=== PATIENT | female | born 1950 | race Caucasian/White ===

== ENCOUNTER 2020-03-08 13:16 | Outpatient (REF) | payer MEDICARE, SELFPAY ==
[2020-03-08 15:49] LABS: TSH reflex Free T4 8.94 mIU/mL (0.32-4.0)
[2020-03-09 07:46] LABS: Triiodothyronine T3 Free 2.6 pg/mL (2.3-4.2)
== END 2020-03-08 13:17 | disposition home or self-care (01) ==
LOC: HO.LAB 13:16
PROVIDERS: PCP Internal Medicine; Visit Provider Obstetrics & Gynecology
DX: Z01.419 Encounter for gynecological examination (general) (routine) without abnormal findings (principal); E03.9 Hypothyroidism, unspecified
CPT/HCPCS: 84439; 84443; 84481

== ENCOUNTER 2020-08-21 12:54 | Outpatient (REF) | payer MEDICARE, SELFPAY ==
--- NOTE | ~2020-08-21 | MM_ITS ---
EXAMINATION: MM SCREENING DIGITAL BREAST TOMOSYNTHESIS, BILATERAL CLINICAL INFORMATION: Screening. Asymptomatic. The lifetime risk of breast cancer based on the Tyrer-Cuzick Model is 5.6%. COMPARISON: Mammography: March 29, 2019 and studies dating back to March 03, 2013 TECHNIQUE: Digital breast tomosynthesis is performed in both the craniocaudal and mediolateral oblique views along with computer-aided detection (CAD). Synthesized 2D images are generated from the tomosynthesis. FINDINGS: The breasts are heterogeneously dense, which may obscure small masses (ACR BI-RADS breast composition Category c). There are no significant masses, abnormal calcifications, or other abnormalities. MM/MM tomosynthesis screening BI IMPRESSION: There are no significant changes from prior study. ASSESSMENT: BI-RADS 1: Negative RECOMMENDATION: Routine annual mammography screening. This patient's information was entered into a reminder system with a target due date for their next mammogram.
--- NOTE | ~2020-08-21 | MM_ITS ---
EXAMINATION: BONE DENSITOMETRY CLINICAL INDICATION: Asymptomatic menopausal status. COMPARISON: Baseline BD dated 08/30/2008. TECHNIQUE: Using a [employer] DXA System (software version: 13.1) manufactured by [employer], dual-energy x-ray absorptiometry was performed of the lumbar spine and left hip. The images are of good technical quality. Summary results are attached. FINDINGS: AP SPINE L1-L2 (excluding L3 and L4): The data of L1-L4 has been changed to exclude the L3 and L4 vertebral bodies, because degenerative changes at these levels may cause overestimation of lumbar spine density. Current: BMD 1.081 g/cm2, Z-score 0.9, T-score -0.7, normal, 0.9% decrease from baseline (<5% change is not significant). Baseline: BMD 1.091 g/cm2. LEFT FEMUR, NECK: Current: BMD 0.825 g/cm2, Z-score 0.1, T-score -1.5, osteopenia. Baseline: BMD 0.900 g/cm2. LEFT FEMUR, TOTAL: Current: BMD 0.784 g/cm2, Z-score -0.4, T-score -1.8, osteopenia, 3.0% decrease from baseline (<5% change is not significant). Baseline: BMD 0.808 g/cm2. IDENTIFIED RISK FACTORS: Early menopause, secondary osteoporosis hysterectomy, bilateral oophorectomy. HISTORY OF FRACTURE: None listed. MEDICATIONS: ERT/SERMS. MM/XR DEXA axial skeleton IMPRESSION: 1. DIAGNOSIS: Osteopenia based on the lowest T-score value of -1.8 in the total femur applying World Health Organization criteria. 2. 10-YEAR FRACTURE RISK PREDICTION, FRAX: Major osteoporotic fracture (clinical spine, forearm, hip or shoulder) 9.4%. Hip fracture 1.3%. 3. Treatment Recommendations: NOF guidelines recommend consideration for treatment in postmenopausal women and men age 50 and older presenting with the following: -A hip or vertebral (clinical or morphometric) fracture. -T-score less than or equal to -2.5 at the femoral neck or spine after appropriate evaluation to exclude secondary causes. -Low bone mass at the hip or spine and a 10-year fracture probability by FRAX of greater than or equal to 3% for hip fracture or greater than or equal to 20% for major osteoporotic fracture based on the [place] adapted WHO algorithm. 4. Other Recommendations: All treatment decisions require clinical judgment and consideration of individual patient factors, including patient preferences, comorbidities, previous drug use, risk factors not captured in the FRAX model (e.g. frailty, falls, vitamin D deficiency, increased bone turnover, interval significant decline in bone density) and possible under or overestimation of fracture risk by FRAX. Additional medical evaluation for secondary cause of low bone mineral density may be appropriate. FUTURE SCAN RECOMMENDATION: People with diagnosed cases of osteoporosis or at high risk for fracture should have regular bone mineral density tests. For patients eligible for Medicare, routine testing is allowed once every 2 years. The testing frequency can be increased to one year for patients who have rapidly progressing disease, those who are receiving or discontinuing medical therapy to restore bone mass, or have additional risk factors.
== END 2020-08-21 12:55 | disposition home or self-care (01) ==
LOC: HO.MAMMO 12:54
PROVIDERS: PCP Internal Medicine; Visit Provider Internal Medicine
DX: Z12.31 Encounter for screening mammogram for malignant neoplasm of breast (principal); M81.0 Age-related osteoporosis without current pathological fracture; Z90.722 Acquired absence of ovaries, bilateral; Z78.0 Asymptomatic menopausal state; Z91.89 Other specified personal risk factors, not elsewhere classified
CPT/HCPCS: 77063; 77067; 77080

== ENCOUNTER 2021-07-15 08:43 | Outpatient (REF) | payer MEDICARE, SELFPAY ==
[2021-07-15 10:54] LABS: Cholesterol 260 mg/dL; HDL Cholesterol 51 mg/dL; LDL Cholesterol Calculated 177 mg/dl; Triglycerides 161 mg/dL
== END 2021-07-15 08:44 | disposition home or self-care (01) ==
LOC: HO.10HDL 08:43
PROVIDERS: Visit Provider Internal Medicine
DX: E78.00 Pure hypercholesterolemia, unspecified (principal)
CPT/HCPCS: 36415; 80061

== ENCOUNTER → 2021-07-19 07:58 | Outpatient (REF) | payer MEDICARE, SELFPAY ==
--- NOTE | 2021-07-19 08:02 | CA_ITS ---
Acquisition Time: 2021-07-19 08:15:29 Total Exercise Time: 00:06:01 Test Indications: Chest Pain Medications: UNKNOWN Protocol: JERONIMO Max HR: 155 BPM 102% of Pred: 151 BPM Max BP: 208/082 mmHG Max Work Load: 7.0 METS PT EXERCISED ON STD JERONIMO PROTOCOL FOR 6 MIN THRU STAGE 2. MAX [id number]%MAX. NO CP. SLIGHT SENSATION OF SOB. OCC ISOLATED PVC'S. NO ISCHEMIC CHANGES. CLINICALLY AND ELEC NORMAL Referred By: Yan Jose Overread By: KYMBERLY JOSE MD
== END ==
LOC: HO.CARD 07:58
PROVIDERS: Visit Provider Internal Medicine
DX: R07.9 Chest pain, unspecified (principal)
CPT/HCPCS: 93017

== ENCOUNTER 2022-07-28 10:05 | Outpatient (REF) | payer MEDICARE, SELFPAY ==
[2022-07-28 14:05] LABS: MANUAL DIFF FLAG NO
[2022-07-28 14:28] LABS: Basophils Percent Auto 0.6 % (0-2); Eosinophils Absolute Auto 0.1 X10*3/uL (0.0-0.4); Eosinophils Percent Auto 2.1 % (0-4); Hematocrit 44.7 % (37.0-47.0); Hemoglobin 14.6 g/dl (12.0-16.0); Imm Gran Abs Auto 0.02 X10*3/uL (0.00-0.03); Imm Gran Pct Auto 0.3 % (0.0-0.4); Lymphocytes Absolute Auto 1.5 X10*3/uL (1.2-4.9); Lymphocytes Percent Auto 23.8 % (20-40); Mean Corpuscular HGB Conc 32.7 g/dl (31.0-35.0); Mean Corpuscular Hemoglobin 29.7 pg (27.0-33.0); Mean Corpuscular Volume 90.9 fL (80.0-98.0); Mean Platelet Volume 9.8 fL (9.4-12.3); Monocytes Absolute Auto 0.5 X10*3/uL (0.1-1.2); Monocytes Percent Auto 7.1 % (2-11); Neutrophils Absolute Auto 4.2 x10*3/uL (2.0-8.3); Neutrophils Percent Auto 66.1 % (45-73); Platelet Count 316 X10*3/uL (160-400); Red Blood Count 4.92 X10*6/uL (4.20-5.50); Red Cell Distribution Width 12.5 % (11.0-16.0); White Blood Count 6.3 X10*3/uL (4.8-10.8)
[2022-07-28 14:33] LABS: Alanine Aminotransferase 21 U/L (0-31); Albumin Level 3.9 g/dL (3.5-5.0); Alkaline Phosphatase 58 U/L (39-117); Anion Gap 10 (12-20); Aspartate Amino Transferase 21 U/L (5-31); Bilirubin Total 0.6 mg/dL (0.0-1.0); Blood Urea Nitrogen 16 mg/dL (9-16); Calcium 8.9 mg/dL (8.4-10.2); Carbon Dioxide 27 mmol/L (22-29); Chloride 108 mmol/L (96-108); Cholesterol 231 mg/dL; Estimated Glomerular Filt Rate > 60; Glucose Random 84 mg/dL (60-115); HDL Cholesterol 44 mg/dL; LDL Cholesterol Calculated 162 mg/dl; Potassium 4.3 mmol/L (3.3-5.1); Sodium 141 mmol/L (135-145); Triglycerides 128 mg/dL
[2022-07-28 15:03] LABS: Free T4 (Free Thyroxine) 1.33 ng/dL (0.71-1.85); Thyroid Stimulating Hormone 0.02 uIU/mL (0.32-4.0); Vitamin B12 678 pg/mL (200-900)
[2022-07-29 14:09] LABS: Triiodothyronine T3 Free 3.8 pg/mL (2.3-4.2)
== END 2022-07-28 10:06 | disposition home or self-care (01) ==
LOC: HO.10HDL 10:05
PROVIDERS: Visit Provider Internal Medicine
DX: E03.9 Hypothyroidism, unspecified (principal); R53.83 Other fatigue; E78.00 Pure hypercholesterolemia, unspecified
CPT/HCPCS: 36415; 80053; 80061; 82607; 84439; 84443; 84481; 85025

== ENCOUNTER 2022-10-21 11:39 | Outpatient (REF) | payer MEDICARE, SELFPAY ==
[2022-10-21 14:19] LABS: TSH reflex Free T4 0.16 uIU/mL (0.32-4.0)
[2022-10-21 15:26] LABS: Free T4 (Free Thyroxine) 1.21 ng/dL (0.71-1.85)
== END 2022-10-21 11:40 | disposition home or self-care (01) ==
LOC: HO.10HDL 11:39
PROVIDERS: Visit Provider Internal Medicine Endocrinology, Diabetes & Metabolism
DX: E89.0 Postprocedural hypothyroidism (principal)
CPT/HCPCS: 36415; 84439; 84443

== ENCOUNTER 2023-01-23 11:26 | Outpatient (REF) | payer MEDICARE, SELFPAY ==
[2023-01-23 14:30] LABS: Free T4 (Free Thyroxine) 1.13 ng/dL (0.71-1.85); TSH reflex Free T4 0.52 uIU/mL (0.32-4.0); Thyroid Stimulating Hormone 0.52 uIU/mL (0.32-4.0)
== END 2023-01-23 11:27 | disposition home or self-care (01) ==
LOC: HO.10HDL 11:26
PROVIDERS: Absent Provider Internal Medicine Endocrinology, Diabetes & Metabolism; Visit Provider Internal Medicine
DX: E03.9 Hypothyroidism, unspecified (principal)
CPT/HCPCS: 36415; 84439; 84443

== ENCOUNTER 2023-11-24 08:20 | Outpatient (REF) | payer MEDICARE, SELFPAY ==
[2023-11-24 12:17] LABS: Cholesterol 244 mg/dL (<200); HDL Cholesterol 49 mg/dL (>40); LDL Cholesterol Calculated 167 mg/dL (<100); Triglycerides 144 mg/dL (<150)
== END 2023-11-24 08:21 | disposition home or self-care (01) ==
LOC: HO.WFDLDS 08:20
PROVIDERS: Visit Provider Internal Medicine
DX: E78.00 Pure hypercholesterolemia, unspecified (principal)
CPT/HCPCS: 36415; 80061

== ENCOUNTER 2024-05-12 12:55 | Outpatient (AMB) | payer MEDICARE, SELFPAY ==
[2024-05-12 13:06] VITALS: BP 118/68; PULSE 59; O2SAT 98; BMI 23.3
--- NOTE | 2024-05-12 13:06 | MHC.OFFVIS ---
Vital Signs 05/12/24 13:06 Height 5 ft 5.5 in Weight 142 lb 4 oz BMI 23.3 BP 118/68 Blood Pressure Location Lt brachial Position Sitting Pulse 59 Pulse Source Pulse Oximeter Pulse Oximetry (%) 98 Oxygen Delivery Method Room Air Intake Visit Reasons: Arthritis Intake Note: Patient presents for follow up on osteoarthritis. Allergies seasonal Allergy (Unknown, Uncoded 05/12/24 13:08) itching, wtery eyes. HPI HPI Arthritis: Details: She has point tenderness of right shoulder. She has had the shoulder pain for years. She has tolerated the pain but now is using tylenol and ibuprofen 400mg daily or BID for pain control. Pain with movement. Sometimes is lying on shoulder at night causing pain. She has difficulty with washing hair. [facility] Medical History (Updated 05/12/24 @ 15:39 by Frank Russo MD) Cataract Arthritis Graves disease Surgical History (Updated 03/08/20 @ 14:04 by Mahi Crawley MD) History of bilateral oophorectomy H/O eye surgery Hx of tonsillectomy H/O hysterectomy for benign disease Family History (Updated 03/08/20 @ 13:35 by Maritza Salinas MA) Sister Uterine cancer Review of Systems Const All systems reviewed & are unremarkable except as noted in HPI and below Physical Exam Vital Signs: Last Vital Signs Pulse 59 05/12/24 13:06 BP 118/68 05/12/24 13:06 Pulse Ox 98 05/12/24 13:06 Oxygen Delivery Method Room Air 05/12/24 13:06 BMI result Body Mass Index 23.3 Const Other: General: Comfortable Skin: No lesions seen MSK: Localized tenderness superior to right acromion. No subacromial tenderness. No tenderness of joint line of glenohumeral joint. Shoulder abduction 160 degrees with pain. She is able to externally rotate and internally rotate shoulder but with pain. Left shoulder range of motion is normal. Right arm tremors at times. Assessment & Plan Assessment & Plan (1) Right shoulder pain: Comment: She has localized pain above the acromion limiting full range of motion. I am obtaining x-ray for further evaluation. We discussed conservative management. Code(s): M25.511 - Pain in right shoulder Category: Medical Plan: X-ray right shoulder ordered Apply diclofenac gel to affected area 3 times a day Apply ice or heat to affected area twice a day She will continue to take Tylenol and ibuprofen 400 mg b.i.d. Return to clinic in 2 weeks to review x-ray results Orders: Orders XR shoulder RT min 2V Today M25.511 - Pain in right shoulder Medications: New diclofenac sodium 1% apply to affected area every 4-6 hours as needed 4 grams topical QID 100 grams 3RF Coding Level of Care Code Est Pt Level 3 (89815) Complex EM visit Add On G2211 Diagnoses Right shoulder pain M25.511
== END 2024-05-12 13:58 | disposition home or self-care (01) ==
PROVIDERS: PCP Internal Medicine; Visit Provider Internal Medicine Rheumatology
DX: M25.511 Pain in right shoulder (principal)
CPT/HCPCS: 99213; G2211

== ENCOUNTER → 2024-05-12 12:55 | Outpatient (BNVA) | payer MEDICARE, SELFPAY | PROVIDERS: PCP Internal Medicine; Visit Provider Internal Medicine Rheumatology | DX: M25.511 Pain in right shoulder (principal) | CPT/HCPCS: 99212 ==

== ENCOUNTER 2024-05-13 12:01 | Outpatient (REF) | payer MEDICARE, SELFPAY ==
--- NOTE | ~2024-05-13 | XR_ITS ---
EXAMINATION: XR SHOULDER, RIGHT CLINICAL INFORMATION: M25.511 - Pain in right shoulder COMPARISON: None available. TECHNIQUE: AP external rotation, Grashey, scapular Y, and axillary views of the right shoulder. FINDINGS: There is mild loss of right AC joint space. The glenohumeral joint space is maintained normal. No visible acute fracture, dislocation or subluxation seen. The soft tissues are normal. XR/XR shoulder RT min 2V IMPRESSION: Mild degenerative changes right AC joint. No visible acute fracture, dislocation or subluxation seen. Electronically signed by: Yovany Ely MD 05/13/2024 03:20 PM ASHLEY
== END 2024-05-13 12:02 | disposition home or self-care (01) ==
LOC: HO.XRAY 12:01
PROVIDERS: PCP Internal Medicine; Visit Provider Internal Medicine Rheumatology
DX: M25.511 Pain in right shoulder (principal)
CPT/HCPCS: 73030

== ENCOUNTER → 2024-05-13 12:06 | Outpatient (BNV) | payer MEDICARE, SELFPAY | PROVIDERS: PCP Internal Medicine; Visit Provider Radiology Diagnostic Radiology | DX: M25.511 Pain in right shoulder (principal) | CPT/HCPCS: 73030 ==

== ENCOUNTER 2024-05-19 14:52 | Outpatient (REF) | payer MEDICARE, SELFPAY ==
--- NOTE | ~2024-05-19 | XR_ITS ---
EXAMINATION: XR HAND 3 OR MORE VIEWS LEFT HISTORY: left third finger inflammation COMPARISON: There are no prior studies available for comparison. FINDINGS: Three views of the left hand are submitted. Osseous mineralization is normal. There is no fracture or dislocation. There is mild narrowing of the DIP joints. There is soft tissue swelling over the PIP joint of the middle finger. XR/XR hand LT min 3V IMPRESSION: Soft tissue swelling over the PIP joint of the middle finger. Mild narrowing of the DIP joints. Electronically signed by: Solo Reza MD 05/19/2024 03:26 PM ASHLEY
[2024-05-19 15:30] LABS: MANUAL DIFF FLAG NO
[2024-05-19 15:48] LABS: Basophils Absolute Auto 0.1 X10*3/uL (0.0-0.2); Basophils Percent Auto 0.8 % (0-2); Eosinophils Absolute Auto 0.3 X10*3/uL (0.0-0.4); Eosinophils Percent Auto 3.8 % (0-4); Hematocrit 44.7 % (37.0-47.0); Hemoglobin 14.4 g/dl (12.0-16.0); Imm Gran Abs Auto 0.02 X10*3/uL (0.00-0.03); Imm Gran Pct Auto 0.3 % (0.0-0.4); Lymphocytes Percent Auto 27.2 % (20-40); Mean Corpuscular HGB Conc 32.2 g/dl (31.0-35.0); Mean Corpuscular Hemoglobin 30.4 pg (27.0-33.0); Mean Corpuscular Volume 94.5 fL (80.0-98.0); Mean Platelet Volume 9.3 fL (9.4-12.3); Monocytes Absolute Auto 0.5 X10*3/uL (0.1-1.2); Monocytes Percent Auto 6.6 % (2-11); Neutrophils Absolute Auto 4.5 x10*3/uL (2.0-8.3); Neutrophils Percent Auto 61.3 % (45-73); Platelet Count 342 X10*3/uL (160-400); Red Blood Count 4.73 X10*6/uL (4.20-5.50); Red Cell Distribution Width 12.6 % (11.0-16.0); White Blood Count 7.3 X10*3/uL (4.8-10.8)
[2024-05-19 16:14] LABS: Anion Gap 11 (12-20); Blood Urea Nitrogen 20 mg/dL (9-16); C Reactive Protein < 0.04 mg/dL (< or = 0.50); Calcium 9.7 mg/dL (8.4-10.2); Carbon Dioxide 27 mmol/L (22-29); Chloride 108 mmol/L (96-108); Estimated Glomerular Filt Rate > 60; Glucose Random 102 mg/dL (60-115); Potassium 4.2 mmol/L (3.3-5.1); Sodium 142 mmol/L (135-145); Uric Acid 4.1 mg/dL (2.4-5.7)
[2024-05-19 16:56] LABS: Erythrocyte Sedimentation Rate 7 MM/HR (0-20)
== END 2024-05-19 14:53 | disposition home or self-care (01) ==
LOC: HO.XRAY 14:52
PROVIDERS: PCP Internal Medicine; Visit Provider Internal Medicine
DX: M79.89 Other specified soft tissue disorders (principal)
CPT/HCPCS: 36415; 73130; 80048; 84550; 85025; 85652; 86140

== ENCOUNTER → 2024-05-19 15:05 | Outpatient (BNV) | payer MEDICARE, SELFPAY | PROVIDERS: PCP Internal Medicine; Visit Provider Radiology Diagnostic Radiology | DX: R22.32 Localized swelling, mass and lump, left upper limb (principal) | CPT/HCPCS: 73130 ==

== ENCOUNTER 2024-06-10 12:43 | Outpatient (AMB) | payer MEDICARE, SELFPAY ==
[2024-06-10 12:56] VITALS: BP 114/68; PULSE 78; O2SAT 98; BMI 23.3
--- NOTE | 2024-06-10 12:56 | A.OFFVIS_ITS ---
Vital Signs 06/10/24 12:56 Height 5 ft 5.5 in Weight 142 lb BMI 23.3 BP 114/68 Blood Pressure Location Lt brachial Position Sitting Pulse 78 Pulse Source Pulse Oximeter Pulse Oximetry (%) 98 Oxygen Delivery Method Room Air Intake Visit Reasons: 2-3 weeks Intake Note: Patient presents follow up Allergies Seasonal Allergies Allergy (Unknown, Verified 06/10/24 13:07) Unknown HPI HPI 2-3 weeks: Details: She continues to have pain in her right shoulder, which she localizes to the lateral side. She is having difficulty with ADLs such as dressing herself. She has not self medicating. She continues to have swelling of her left 3rd finger. Swelling and stiffness is worse in the morning. Redness has improved. She saw PCP who did workup and an x-ray. She has not followed up with results for PCP. [facility] Medical History Cataract Arthritis Graves disease Surgical History History of bilateral oophorectomy H/O eye surgery Hx of tonsillectomy H/O hysterectomy for benign disease Family History Sister Uterine cancer Review of Systems Const All systems reviewed & are unremarkable except as noted in HPI and below Physical Exam Vital Signs: Last Vital Signs Pulse 78 06/10/24 12:56 BP 114/68 06/10/24 12:56 Pulse Ox 98 06/10/24 12:56 Oxygen Delivery Method Room Air 06/10/24 12:56 BMI result Body Mass Index 23.3 Const Other: General: Comfortable Skin: No lesions seen MSK: Localized tenderness to the right subacromial region. She has pain with range of motion of right shoulder: External rotation, internal rotation, abduction and adduction. Positive painful arc sign. Tender to palpate left 3rd PIP with synovitis present. She has slight erythema around joint with pain of subcutaneous tissue of distal 2nd phalanx of 3rd finger. Assessment & Plan Assessment & Plan (1) Subacromial impingement of right shoulder: Code(s): M75.41 - Impingement syndrome of right shoulder Category: Medical Plan: PT ordered Start NSAID meloxicam 15 mg daily Ice shoulder daily Return to clinic in 3 months (2) Osteoarthritis of hands, bilateral: Comment: Left 3rd PIP swelling likely related to OA flare. X-ray personally reviewed with patient, which reveals osteoarthritis of left hand. Labs revealed normal inflammatory markers and white cell count. Code(s): M19.041 - Primary osteoarthritis, right hand; M19.042 - Primary osteoarthritis, left hand Category: Medical Qualifiers: Osteoarthritis type: primary Qualified Code(s): M19.041 - Primary osteoarthritis, right hand; M19.042 - Primary osteoarthritis, left hand Plan: Start NSAID meloxicam RTC 3 months or sooner for intra-articular cortisone injection Orders: Orders PT Evaluation and Treatment 06/10/24 M75.41 - Impingement syndrome of right shoulder Medications: New meloxicam Take with food 15 mg PO DAILY 30 tabs 2RF Coding Level of Care Code Est Pt Level 4 (65373) Complex EM visit Add On G2211 Diagnoses Subacromial impingement of right shoulder M75.41 Primary osteoarthritis of both hands M19.041; M19.042 Osteoarthritis type: primary
--- OUTSIDE RECORDS SUMMARY | 2024-06-10 13:06 | XMS_ITS ---
Author Organization [facility] Address [address] [place] [address] Care Team Providers Care Gun Stock Checker Name Role Phone Yan Muro MD Primary Care Provider Solo Noguera Unavailable [phone] ALLERGIES No Known Allergies REASON FOR VISIT Patient presents today for a recall colonoscopy MEDICATIONS Medication SIG (Take, Route, Frequency, Duration) Notes Start Date End Date Status Biotin Active Metoprolol Succinate ER 25 MG 12.5 in am 12.5 in pm tablet Orally Once a day Active Levothyroxine Sodium 125 MCG 1 tablet Orally Once a day Active Marlen Allergy 180 MG 1 tablet Orally O nce a day Active Estradiol 0.0375 MG/24HR APPLY 1 PATCH T OPICALLY TWICE A WEEK. Transdermal for 84 Not-Taking VITAL SIGNS BMI 24.00 kg/m2 04/26/2024 Blood pressure systolic 000 mm Hg 04/26/20 24 Blood pressure diastolic 00 mm Hg 024 Height 64.5 in 04/26/2024 Temperature 97.5 degrees Fahrenheit 04/26/20 24 Weight 142 lbs 04/26/2024 Encounters Encounter Location Date Provider Diagnosis [facility] [address] [place] [address] 04/26/2024 Solo Adams Irritable bowel syndrome K58.9 ; Hx of adenomatous colonic polyps Z86.010 and Encounter for screening for malignant neoplasm of colon Z12.11 ASSESSMENTS Encounter Date Diagnosis Assessment Notes Treatment Notes Treatment Clinical Notes 04/26/2024 Irritable bowel syndrome (ICD-10 - K58.9) 04/26/2024 Hx of adenomatous colonic polyps (ICD-10 - Z86.010) 04/26/2024 Encounter for screening for malignant neoplasm of colon (ICD-10 - Z12.11) PLAN OF TREATMENT Future Test Test Name Order Date COLONOSCOPY 04/26/2024 Next Appt Details Follow Up: prn, Reason: Provider Name:Solo Adams , 08/03/2024 09:30:00 AM, [address] [place] [address], [id number],
--- OUTSIDE RECORDS SUMMARY | 2024-06-10 13:06 | XMS_ITS | Patient Health Record ---
Author Organization [facility] Address [address] [place] [address] Care Team Providers Care Senior Net Developer Name Role Phone Yan Muro MD Primary Care Provider Solo Noguera Unavailable [phone] ALLERGIES No Known Allergies REASON FOR REFERRAL No Information MEDICATIONS Medication SIG (Take, Route, Frequency, Duration) [...] TWICE A WEEK. Transdermal for 84 Not-Taking IMMUNIZATIONS Vaccine Route Administration Date Status Comme nts Influenza Unknown 12/27/2019 Administered Influenza Unknown 01/25/2022 Administered Influenza Unknown 03/29/2024 Administered SOCIAL HISTORY Sex Assigned At : Social History Observation Description Sex Assigned At Unknown PROBLEMS Problem Type ICD Code Onset Dates Problem Status W/U Status Risk SNOMED Code Notes Problem Irritable bowel syndrome (K58.9) Active confirmed Irritable b owel syndrome (75655655) Problem Encounter for screening for malignant neoplasm of colon (Z12.11) Active confirmed 006277291 Problem Bloating (R14.0) Active confirmed Flatu lence, eructation and gas pain (850720357) Problem Constipation (K59.00) Active confirmed Constipation (06669513) Problem Kearney's esophagus without dysplasia (K22.70) Active confirmed 198981269 Problem Polyp of colon (K63.5) Active confirmed 07676005 Problem Hiatal hernia (K44.9) Active confirmed 25568797 Problem Hx of adenomatous colonic polyps (Z86.010) Active confirmed 039985502 Problem Gastroesophageal reflux disease, unspecified whether esophagitis present (K21.9) Active confirmed 048494578 VITAL SIGNS Temperature 97.5 degrees Fahrenheit 04/26/2024 Blood pressure diastolic 00 mm Hg 04/26/2024 Height 64.5 in 04/26/2024 Blood pressure systolic 000 mm Hg 04/26/2024 Weight 142 lbs 04/26/2024 BMI 24.00 kg/m2 04/26/2024 Encounters Encounter Location Date Provider Diagnosis [facility] [address] [place] [address] 04/26/2024 Solo Adams Irritable bowel syndrome K58.9 [...] TREATMENT Future Test Test Name Order Date UPPER GI ENDOSCOPY 10/17/2014 COLONOSCOPY 10/17/2014 COLONOSCOPY 04/26/2024 Next Appt Details Provider Name:Solo Adams , 08/03/2024 09:30:00 AM, [address] [place] [address] , [place], [place], [phone], Insurance Providers Payer Name Payer Address Payer Phone Subscriber Number Group Number Insured Name Patient Relationship to Insured Coverage Start Date Coverage End Date [place] [address] [place] [address] [id number] CHUY MILLER Self - patient is the insured [employer] ATT[employer] CLAIMS [address] [place] [address] [id number] CHUY MILLER Self - patient is the insured MEDICAL (GENERAL) HISTORY Medical History History ICD Code Tubular adenomas-original co lonoscopy in 1994 with the removal of several tubular adenomas, including a 2 cm polyp with high-grade dysplasia. All of her subsequent colonoscopies have been negative for any adenomas, including the most recent one in July 2008 Irritable bowel syndrome GERD--her last upper endosco py was in 2005, which revealed a small hiatal hernia--biopsies were negative for Kearney's mucosa at that time--biopsies in 2001 revealed a small area of Kearney's mucosa Graves' disease SVT-on metoprolol Denies [place],DM,CVA,Lung disease,renal dise ase Normal duodenal biopsies in 2001 and neg TTG antibodies in 2008 Hypoglycemic Colonoscopy in 2014-1 small tubular jose tia EGD in 2014-normal duodenal biopsies Negative colonoscopy in 05/[address] Ruvalcaba during the hemorrhoid surgery Surgical History Surgery Date(Month/Year) Cataract surgery-- both eyes 2018 Hemorrhoidectomy 05/2018 Eye surgery for the Graves' disease for tissue decompression DIAZ for endometriosis
== END 2024-06-10 13:36 | disposition home or self-care (01) ==
PROVIDERS: PCP Internal Medicine; Visit Provider Internal Medicine Rheumatology
DX: M75.41 Impingement syndrome of right shoulder (principal); M19.041 Primary osteoarthritis, right hand; M19.042 Primary osteoarthritis, left hand
CPT/HCPCS: 99214; G2211

== ENCOUNTER → 2024-06-10 12:43 | Outpatient (BNVA) | payer MEDICARE, SELFPAY | PROVIDERS: PCP Internal Medicine; Visit Provider Internal Medicine Rheumatology | DX: M75.41 Impingement syndrome of right shoulder (principal); M19.041 Primary osteoarthritis, right hand; M19.042 Primary osteoarthritis, left hand | CPT/HCPCS: 99212 ==

== ENCOUNTER 2024-09-01 10:50 | Outpatient (AMB) | payer MEDICARE, SELFPAY ==
[2024-09-01 10:56] VITALS: BP 118/70; PULSE 65; TEMP 36.5; O2SAT 98; BMI 24.1
--- NOTE | 2024-09-01 10:56 | MHC.PC.OV ---
Vital Signs 09/01/24 10:56 Height 5 ft 5 in Weight 145 lb BMI 24.1 BP 118/70 Blood Pressure Location Lt brachial Position Sitting Pulse 65 Pulse Source Pulse Oximeter Temp 97.7 F Temp Source Axillary Pulse Oximetry (%) 98 Oxygen Delivery Method Room Air Intake Visit Reasons: Routine - see comments Element Winding Machine Tender Required: No Accompanied by: Self / Same As Patient Allergies Seasonal Allergies Allergy (Unknown, Verified 09/01/24 10:57) Unknown Tobacco use date assessed: 09/01/24 Fall risk assessment: No Falls in past year Last assessed Fall Risk: 09/01/24 Dental Screening Dental Screen Date: 09/01/24 Did you have a dental visit in the last 12 months?: Yes Did you have a dental problem in the last 6 months where you did not have access to dental care?: No HPI HPI Comments History of Present Illness Details 73 year old female with a past medical history of hypothyroid, hyperlipdiemia, SVT, colon polyps, allergic rhinitis presenting for follow up. Last seen by pcp in november 2023 CV: On metoprolol daily. History of SVT. Endocrine: Follows with Dr Mckee. TSH. On levothyroxine 25mcg six days a week MSK: Polyarthralgia. OA. Follows with rheumatology. Takes chondriotin and glucosamine, biotin, DHEA, vitamin D3, flaxseed. has read about the anti-inflammatory properties of metformin and would like tontry it for her arthritis ROS CONSTITUTIONAL: Denies weight loss, fever and chills. HEENT: Denies changes in vision and hearing. RESPIRATORY: Denies SOB and cough. CV: Denies palpitations and CP GI: Denies abdominal pain, nausea, vomiting and diarrhea. : Denies dysuria and urinary frequency. MSK: Denies new myalgia and joint pain. SKIN: Denies rash and pruritus. NEUROLOGICAL: Denies headache PSYCHIATRIC: Denies recent changes in mood. PHYSICAL EXAM: GENERAL: Alert and oriented x 3. NAD EYES: EOMI. Anicteric. HENT: Moist mucous membranes. No scleral icterus. No cervical lymphadenopathy. LUNGS: Clear to auscultation bilaterally. CARDIOVASCULAR: Regular rate and rhythm. No murmur. No JVD. ABDOMEN: Soft, non-tender +bs EXTREMITIES: No edema. Non-tender. SKIN: No rashes or lesions. Warm. NEUROLOGIC: No focal neurological deficits. CN II-XII grossly intact PSYCHIATRIC: Cooperative. Appropriate mood and affect [facility] Medical History Seasonal allergies Hypothyroidism Hx of hypoglycemia Hx of supraventricular tachycardia Hiatal hernia GERD (gastroesophageal reflux disease) IBS (irritable bowel syndrome) Cataract Arthritis Graves disease Surgical History Hx of bilateral cataract extraction (~2018) Hx of hemorrhoidectomy (~2019) S/P DIAZ (total abdominal hysterectomy) History of esophagogastroduodenoscopy (EGD) (~2014) Hx of colonoscopy (~2018) History of bilateral oophorectomy H/O eye surgery Hx of tonsillectomy H/O hysterectomy for benign disease Family History Sister Uterine cancer Mother No problems noted. Father No problems noted. Social History Housing: House Patient Tobacco Use Status: Former Tobacco user e-Cigarette/Vaping Use: Former Use service: No Current occupational status: retired Cognitive needs: No Hearing needs: No Vision needs: Yes (reading glasses) Questionnaire PHQ-9 Over the last 2 weeks, how often have you been bothered by any of the following problems? 1. Little interest or pleasure in doing things: not at all 2. Feeling down, depressed, or hopeless: not at all 3. Trouble falling or staying asleep, or sleeping too much: not at all 4. Feeling tired or having little energy: not at all 5. Poor appetite or overeating: not at all 6. Feeling bad about yourself - or that you are a failure or have let yourself or your family down: not at all 7. Trouble concentrating on things, such as reading the newspaper or watching television: not at all 8. Moving or speaking so slowly that other people could have noticed. Or the opposite - being so fidgety or restless that you have been moving around a lot more than usual: not at all 9. Thoughts that you would be better off or of hurting yourself in some way: not at all Total score: 0 Depression Screening Interpretation: Negative Depression Screening Done: Yes [id number] - PHQ-9 Billing: Yes Source: Developed by Drs. Solo De La Torre, Marshall Ohara and colleagues, with an educational familia from [employer]. Thrive Questionnaire Date Thrive assessed: 09/01/24 I am a: Patient Within the past 12 months, did the food you bought not last and you didn't have the money to get more?: Never true Within the past 12 months, did you worry whether your food would run out before you got money to buy more?: Never true Do you have trouble paying for medicines?: No Do you have trouble getting transportation to medical appointments?: No Do you have trouble paying your heating and electricity bill?: No Do you have trouble taking care of your child, family member or friend?: No Do you have trouble with day-to-day activities such as bathing, preparing meals, shopping, managing finances, etc.?: No Are you currently unemployed and looking for a job?: No Are you interested in more education?: No THRIVE Score: 0 AUDIT C Alcohol Use Questionnaire (AUDIT-C) 1. How often do you have a drink containing alcohol?: Never 3. How often do you have six or more drinks on one occasion?: Never Total Score: 0 KOFI-7 AMB Questionnaire KOFI-7 Date KOFI - 7 assessed: 09/01/24 Feeling nervous, anxious, or on edge: 0 = Not at all Not being able to stop or control worryin = Not at all Worrying too much about different things: 0 = Not at all Trouble relaxin = Not at all Being so restless that it is hard to sit still: 0 = Not at all Becoming easily annoyed or irritable: 0 = Not at all Feeling afraid as if something awful might happen: 0 = Not at all Total KOFI-7 score (0-4 normal; 5-9 mild; 10-14 moderate; 15-21 severe): 0 Source: Developed by Drs. Solo De La Torre, Marshall Ohara and colleagues, with an educational familia from [employer]. Physical exam (Primary Care) Vital Signs: Last Vital Signs Temp 97.7 F 09/01/24 10:56 Pulse 65 09/01/24 10:56 BP 118/70 09/01/24 10:56 Pulse Ox 98 09/01/24 10:56 Oxygen Delivery Method Room Air 09/01/24 10:56 BMI result Body Mass Index 24.1 Tobacco/Smoking Status: Tobacco use Status Tobacco use date assessed 09/01/24 09/01/24 10:58 Patient Tobacco Use Status Former Tobacco user 09/01/24 11:23 e-Cigarette/Vaping Use Former Use 09/01/24 11:23 PHQ-9: PHQ-9 Score PHQ-9: Total score 0 09/01/24 11:53 Depression Screening Interpretation: Negative Thrive Assessment: Date of Thrive Assessment Date Thrive assessed 09/01/24 09/01/24 10:58 Coding Level of Care Code New Pt Level 4 (10514) Complex EM visit Add On G2211 Diagnoses Hyperlipidemia, unspecified hyperlipidemia type E78.5 Hyperlipidemia type: unspecified Chronic right shoulder pain M25.511; G89.29 Chronicity: chronic Hypothyroidism, unspecified type E03.9 Hypothyroidism type: unspecified Additional Codes PHQ-9 - 44994 - PHQ-9 Billing: Yes ([id number]) Assessment & Plan Assessment & Plan (1) Hyperlipidemia: Code(s): E78.5 - Hyperlipidemia, unspecified Category: Medical Qualifiers: Hyperlipidemia type: unspecified Qualified Code(s): E78.5 - Hyperlipidemia, unspecified (2) Right shoulder pain: Comment: She has localized pain above the acromion limiting full range of motion. I am obtaining x-ray for further evaluation. We discussed conservative management. Code(s): M25.511 - Pain in right shoulder Category: Medical Qualifiers: Chronicity: chronic Qualified Code(s): M25.511 - Pain in right shoulder; G89.29 - Other chronic pain (3) Hypothyroidism: Comment: s/p irradiation for Grave's disease Code(s): E03.9 - Hypothyroidism, unspecified Category: Medical Qualifiers: Hypothyroidism type: unspecified Qualified Code(s): E03.9 - Hypothyroidism, unspecified Plan 73 yo to establish care Past medical, surgical, social reviewed Metformin sent per patient request for arthritis Hypothyroid-on levothyroxine.Following with endocrinology Orders: Orders Complete Blood Count Auto Diff 09/01/24 E03.9 - Hypothyroidism, unspecified, E78.5 - Hyperlipidemia, unspecified, M19.041 - Primary osteoarthritis, right hand, M19.042 - Primary osteoarthritis, left hand, M19.90 - Unspecified osteoarthritis, unspecified site, Z13.228 - Encounter for screening for other metabolic disorders Comprehensive Met. Panel 09/01/24 E03.9 - Hypothyroidism, unspecified, E78.5 - Hyperlipidemia, unspecified, M19.041 - Primary osteoarthritis, right hand, M19.042 - Primary osteoarthritis, left hand, M19.90 - Unspecified osteoarthritis, unspecified site, Z13.228 - Encounter for screening for other metabolic disorders Hemoglobin A1c 09/01/24 E03.9 - Hypothyroidism, unspecified, E78.5 - Hyperlipidemia, unspecified, M19.041 - Primary osteoarthritis, right hand, M19.042 - Primary osteoarthritis, left hand, M19.90 - Unspecified osteoarthritis, unspecified site, Z13.228 - Encounter for screening for other metabolic disorders Lipid Panel 09/01/24 E03.9 - Hypothyroidism, unspecified, E78.5 - Hyperlipidemia, unspecified, M19.041 - Primary osteoarthritis, right hand, M19.042 - Primary osteoarthritis, left hand, M19.90 - Unspecified osteoarthritis, unspecified site, Z13.228 - Encounter for screening for other metabolic disorders Medications: New metoprolol tartrate 12.5 mg (1/2 x 25 mg) PO BID 270 tabs 3RF metformin 500 mg PO DAILY 90 tabs 3RF
--- OUTSIDE RECORDS SUMMARY | 2024-09-01 12:20 | XMS_ITS | Patient Health Record ---
Author Organization [facility] Address [address] [place] [address] Care Team Providers Care Peripheral Vascular Tech Name Role Phone Yan Muro MD Primary Care Provider Solo Noguera Unavailable [phone] Allergies No Known Allergies Reason For Referral No Information Medications Medication SIG (Take, Route, Frequency, Duration) Notes [...] TWICE A WEEK. Transdermal for 84 Not-Taking Immunizations Vaccine Route Administration Date Status Comme nts Influenza Unknown 12/27/2019 Administered Influenza Unknown 01/25/2022 Administered Influenza Unknown 03/29/2024 Administered Problems Problem Type SNOMED Code ICD Code Onset Dates Problem Status W/U Status Risk Notes Problem Irritable bowel syndrome (09707080) Irritable bowel syndrome (K58.9) Active confirmed Problem 193457173 Encounter for screening for malignant neoplasm of colon (Z12.11) Active confirmed Problem Flatulence, eructation and gas pain (472043874) Bloating (R14.0) Active confirmed Problem Constipation (16945744) Constipation (K59.00) Active confirmed Problem 190384369 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 Problem 34934961 Polyp of colon (K63.5) Active confirmed Problem 89615592 Hiatal hernia (K44.9) Active confirmed Problem 565160247 Hx of adenomatou s colonic polyps (Z86.010) Active confirmed Problem 387936048 Gastroesophageal reflux disease, unspecified whether esophagitis present (K21.9) Active confirmed Vital Signs Temperature 97.5 degrees Fahrenheit 04/26/2024 Blood pressure diastolic 00 mm Hg 04/26/2024 Height 64.5 in 04/26/2024 Blood pressure systolic 000 mm Hg 04/26/2024 Weight 142 lbs 04/26/2024 BMI 24.00 kg/m2 04/26/2024 Encounters Encounter Location Date Provider Diagnosis [facility] [address] [place] [phone] 04/26/2024 Solo Adams Irritable bowel syndrome K58.9 ; Hx of adenomatous colonic polyps Z86.010 and Encounter for screening for malignant neoplasm of colon Z12.11 [facility] [address] [place] [phone] 08/01/2024 Solo Adams Assessments Encounter Date Diagnosis (ICD Code) Assessment Notes Treatment Notes Treatment Clinical Notes Section Notes 04/26/2024 Irritable bowel syndrome (ICD-10 - K58.9) Overall, Cristo appears quite well. Her irritable bowel syndrome seems to be improved and stable on her self-directed regimen of increasing dietary fiber and with some prune juice. I did advise her to certainly continue this. I did recommend a followup screening colonoscopy given her previous history of tubular adenomas and last colonoscopy being over 5 years ago. We did review the rationale for that regard to colon cancer prevention. Full consent was obtained for this, including risks of bleeding and perforation. The procedure will be done with monitored anesthesia care. Cristo was comfortable with this plan. Thank you again for allowing me to participate in Cristo's care. I shall continue to keep you advised of her progress. 04/26/2024 Hx of adenomatous colonic polyps (ICD-10 - Z86.010) Overall, Cristo appears quite well. Her irritable bowel syndrome seems to be improved and stable on her self-directed regimen of increasing dietary fiber and with some prune juice. I did advise her to certainly continue this. I did recommend a followup screening colonoscopy given her previous history of tubular adenomas and last colonoscopy being over 5 years ago. We did review the rationale for that regard to colon cancer prevention. Full consent was obtained for this, including risks of bleeding and perforation. The procedure will be done with monitored anesthesia care. Cristo was comfortable with this plan. Thank you again for allowing me to participate in Cristo's care. I shall continue to keep you advised of her progress. 04/26/2024 Encounter for screening for malignant neoplasm of colon (ICD-10 - Z12.11) Overall, Cristo appears quite well. Her irritable bowel syndrome seems to be improved and stable on her self-directed regimen of increasing dietary fiber and with some prune juice. I did advise her to certainly continue this. I did recommend a followup screening colonoscopy given her previous history of tubular adenomas and last colonoscopy being over 5 years ago. We did review the rationale for that regard to colon cancer prevention. Full consent was obtained for this, including risks of bleeding and perforation. The procedure will be done with monitored anesthesia care. Cristo was comfortable with this plan. Thank you again for allowing me to participate in Cristo's care. I shall continue to keep you advised of her progress. Plan Of Treatment Future Test Test Name Order Date UPPER GI ENDOSCOPY 10/17/2014 COLONOSCOPY 10/17/2014 COLONOSCOPY 04/26/2024 Next Appt Details Provider Name:Solo Alicia Adams , 10/31/2024 10:10:00 AM, [address] [place] [address] , [place], [place], [phone], Insurance Providers Payer Name Payer Address Payer Phone Subscriber Number Group Number Insured Name Patient Relationship to Insured Coverage Start Date Coverage End Date MEDICARE OF [place] [address] [place] [address] [id number] CHUY MILLER Self - patient is the insured [employer] ATT[employer] CLAIMS [address] [place] [address] [id number] CHUY MILLER Self - patient is the insured Medical (General) History Medical History History ICD Code Tubular adenomas-original [...] Kearney's mucosa Graves' disease SVT-on metoprolol Denies TN,DM,CVA,Lung disease,renal dise ase Normal duodenal biopsies in [...]
--- OUTSIDE RECORDS SUMMARY | 2024-09-01 12:20 | XMS_ITS ---
Author Organization [facility] Address [address] [place] [address] Care Team Providers Care Board Certified Arts Therapist Name Role Phone Yan Muro MD Primary Care Provider Solo Noguera Unavailable [phone] Allergies No Known Allergies REASON FOR VISIT Patient presents today for a recall colonoscopy Medications Medication SIG (Take, Route, Frequency, Duration) [...] TWICE A WEEK. Transdermal for 84 Not-Taking Vital Signs Temperature 97.5 degrees Fahrenheit 04/26/20 24 Blood pressure systolic 000 mm Hg 04/26/20 24 Blood pressure diastolic 00 mm Hg 024 Height 64.5 in 04/26/2024 Weight 142 lbs 04/26/2024 BMI 24.00 kg/m2 04/26/2024 Encounters Encounter Location Date Provider Diagnosis [facility] [address] [place] [address] 04/26/2024 Solo Adams Irritable bowel syndrome K58.9 ; Hx of adenomatous colonic polyps Z86.010 and Encounter for screening for malignant neoplasm of colon Z12.11 Assessments Encounter Date Diagnosis (ICD Code) Assessment [...] Treatment Future Test Test Name Order Date COLONOSCOPY 04/26/2024 Next Appt Details Follow Up: prn, Reason: Provider Name:Solo Adams , 10/31/2024 10:10:00 AM, [address] [place] [address], [phone], Progress Notes * PONCHO MILLERADOB: 2 (73 yo F)Acc No.[id number]:04/26/2024 Progress Notes Patient:?CHUY MILLER Provider:?Solo Adams MD :1950???Age:73 Y???Sex:Female D ate:04/26/2024 Address: [address] [place] Pcp:Yan Muro MD Subjective: * Chief Complaints: * ???Patient presents today fo r a recall colonoscopy * HPI: ???incontinence:? I saw Cristo in followup today in regard to her chronic irritable bowel syndrome and irregular bowel movements, personal history of tubular adenomas of the colon, and need for colorectal cancer screening. ?I last saw Cristo in January of 2022. At that time we reviewed her underlying history of irritable bowel syndrome. I recommended some supplemental fiber to try and help regulate her bowel movements. However, she currently describes that she seems to be doing better simply by increasing her dietary fiber along with some prune juice. She is not using any supplemental fiber such as Metamucil. She has found this works best for her in keeping her bowel movements fairly regular. She enjoys a good appetite and denies any significant heartburn or dysphagia. She denies any signs of hematochezia nor melena. She denies any abdominal pain, jaundice, nor unintentional weight loss. She denies any known family history of colon cancer. ?Her last colonoscopy in [address] Ruvalcaba during her hemorrhoid surgery was unremarkable. She did have some significant polyps removed in 1994 during her initial colonoscopy with me, but subsequent to that has not had any significant findings other than some small tubular adenomas. * ROS:?General/Constitutional:?Change in appetite?denies.?Chills?denies.?Fatigue?denies.?Ophthalmologic:?Patient denies? Negative..?ENT:?Patient denies?Negative..?Respiratory:?Patient denies?No coughing/hemoptysis..?Cardiovascular:?Patient denies? No chest pain/orthopnea..?Gastrointestinal:?Comments?See HPI for details.?Genitourinary:?Patient denies? No dysuria/hematuria..?Incontinence?denies.?Musculoskeletal:?Patient denies? No specific arthralgias/myalgias..?Skin:?Patient denies?No rash/pruritus..?Neurologic:?Patient denies?No seizures..?Admits?Headache.?Psychiatric:?Patient denies?Negative..? * Medical History:? * Surgical History:?DIAZ for en dometriosis Eye surgery for the Graves' disease for tissue decompression Hemorrhoidectomy 05/2018 Cataract surgery-- both eyes 2017 * Hospitalization/Major Diagno stic Procedure:?No Hospitalization History. * Family History:?Mother: dece ased.?Siblings: diagnosed with HTN (hypertension).? Mother from Alzheimer's Disease There is no family history of G.I. malignancy nor inflammatory bowel disease. NO family history of liver cancer. * Social History:?Tobacco Use:?Tobacco Use/Smoking?Are you a: nonsmoker.?Drugs/Alcohol:?Alcohol Screen?Points: 0, Interpretation: Negative.?Miscellaneous:?Marital status: . 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 ???Nonsmoker; no alcohol. * Medications:?TakingBiotin Me toprolol Succinate ER 25 MG Tablet Extended Release 24 Hour 12.5 in am 12.5 in pm tablet Orally Once a dayLevothyroxine Sodium 125 MCG Tablet 1 tablet Orally Once a dayAllegra Allergy 180 MG Tablet 1 tablet Orally Once a dayTaking Biotin Taking Metoprolol Succinate ER 25 MG Tablet Extended Release 24 Hour 12.5 in am 12.5 in pm tablet Orally Once a dayTaking Levothyroxine Sodium 125 MCG Tablet 1 tablet Orally Once a dayTaking Marlen Allergy 180 MG Tablet 1 tablet Orally Once a dayNot-Taking/PRNEstradiol 0.0375 MG/24HR Patch Twice Weekly APPLY 1 PATCH TOPICALLY TWICE A WEEK. Transdermal Medication List reviewed and reconciled with the patientNot-Taking/PRN Estradiol 0.0375 MG/24HR Patch Twice Weekly APPLY 1 PATCH TOPICALLY TWICE A WEEK. Transdermal Medication List reviewed and reconciled with the patient * Allergies:?N.K.D.A.yes[Aller gies Verified] Objective: * Vitals:?Wt: 142 lbs, Ht: 64. 5 in, BMI:24.00 Index, BP: 000/00 mm Hg, Temp: 97.5. Assessment: * Assessment: 1.?Irritable bowel syndrome - K58.9 (Primary)?2.?Hx of adenomatous colonic polyps - Z86.010?3.?Encounter for screening for malignant neoplasm of colon - Z12.11? Overall, Cristo appears quite w ell. Her irritable bowel syndrome seems to be [...] to keep you advised of her progress. Plan: * Treatment: 2.?Encounter for screening for malignant neoplasm of colon?Procedure: COLONOSCOPY (Ordered for 04/26/2024)* with MACsched for 08/03/24 at 9:30 ammiralax * Procedure Codes:?3017F COLOR ECTAL CA SCREEN DOC FOD3948H TOBACCO NON-[id number] BP SCR NOT PRFRM REC REASON NOS * Preventive Medicine:? ??Urinary Incontinence:?Urinary Incontinence?Assessment:?Absent,?Plan of care documented:?No, reason not specified.? ??Screenings:?Fall Risk Screening?Fall Risk Assessment:?No falls in the past year,?Screening:?No falls in the past year,?Assessment:?Not performed, no reason specified,?Plan of Care:?Not documented, no reason specified.? * Follow Up:?prn * * Sign off status: Completed true * Provider:?Solo Adams MD Date:? 024 Generated for Luis Fernandoi alexandra/Rosalindag/eTransmitting on:?09/01/2024 12:19 PM EDT History and Physical Notes * HPI (History of Present Illness) Category Sub-Category Detail Notes Category Not es incontinence I saw Cristo in followup today in regard to her chronic irritable bowel syndrome and irregular bowel movements, personal history of tubular adenomas of the colon, and need for colorectal cancer screening. I last saw Cristo in January of 2022. At that time we reviewed her underlying history of irritable bowel syndrome. I recommended some supplemental fiber to try and help regulate her bowel movements. However, she currently describes that she seems to be doing better simply by increasing her dietary fiber along with some prune juice. She is not using any supplemental fiber such as Metamucil. She has found this works best for her in keeping her bowel movements fairly regular. She enjoys a good appetite and denies any significant heartburn or dysphagia. She denies any signs of hematochezia nor melena. She denies any abdominal pain, jaundice, nor unintentional weight loss. She denies any known family history of colon cancer. Her last colonoscopy in [address] Ruvalcaba during her hemorrhoid surgery was unremarkable. She did have some significant polyps removed in 1994 during her initial colonoscopy with , but subsequent to that has not had any significant findings other than some small tubular adenomas.
--- OUTSIDE RECORDS SUMMARY | 2024-09-01 12:20 | XMS_ITS ---
Author Organization [facility] Address [address] [place] [address] Care Team Providers Care Breaker Table Worker Name Role Phone Yan Muro MD Primary Care Provider Solo Noguera [phone] REASON FOR VISIT screening,hx polyps Encounters Encounter Location Date Provider Diagnosis [facility] Outpatient [address] [place] [phone] 08/03/2024 Solo Adams Plan Of Treatment Next Appt Details Provider Name:Solo Adams , 10/31/2024 10:10:00 AM, [address] [place] [address] , [place], [place], [phone], Progress Notes * PONCHO MILLERADOB: (73 yo F)Acc No.[id number]:08/03/2024 COLON WITH MAC Patient:?CHUY MILLER Provider:?Solo Adams MD :1950???Age:73 Y???Sex:Female D ate:08/03/2024 Address:[address] [place], [place] Pcp:Yan Muro MD Subjective: * Chief Complaints: * ???1. Screening,hx polyps. * Medical History:? Objective: * Vitals:? Assessment: Plan: * Treatment: * * The named appointment provid er may or may not be the originator of this progress note, and it is not deemed complete until electronically signed by the appointment provider. Sign off status: Pending * Provider:?Solo Adams MD Date:? 025 Generated for Luis Fernandoi alexandra/Danielito/eTransmitting on:?09/01/2024 12:20 PM EDT
--- OUTSIDE RECORDS SUMMARY | 2024-09-01 12:21 | XMS_ITS ---
Author Organization [facility] Address [address] [place] [address] Care Team Providers Care Dry Sand Molder Name Role Phone Yan Muro MD Primary Care Provider Solo Noguera [phone] REASON FOR VISIT R/S Procedure Encounters Encounter Location Date Provider Diagnosis [facility] [address] [place] [phone] 08/01/2024 Solo Adams Plan Of Treatment Next Appt Details Provider Name:Solo Adams , 10/31/2024 10:10:00 AM, [address] [place] [address] , [place], [place], [phone], Progress Notes * ZANDER MILLERB: (73 yo F)Acc No.[id number]:08/01/2024 Patient:?ANGELAPONCHOA :1950???Age:73 Y???Sex:Female Address:[address] [place] [place] [address] * true * Date:? Generated for Printi alexandra/Danielito/eTransmitting on:?09/01/2024 12:20 PM EDT
== END 2024-09-01 11:59 | disposition home or self-care (01) ==
LOC: HO.HMCHD 10:51
PROVIDERS: PCP Internal Medicine; Visit Provider Internal Medicine
DX: E78.5 Hyperlipidemia, unspecified (principal); M25.511 Pain in right shoulder; G89.29 Other chronic pain; E03.9 Hypothyroidism, unspecified

== ENCOUNTER → 2024-09-01 10:50 | Outpatient (BNVA) | payer MEDICARE, SELFPAY | PROVIDERS: PCP Internal Medicine; Visit Provider Internal Medicine | DX: E78.5 Hyperlipidemia, unspecified (principal); E03.9 Hypothyroidism, unspecified; M25.511 Pain in right shoulder; G89.29 Other chronic pain; M19.042 Primary osteoarthritis, left hand; Z86.0100 Personal history of colon polyps, unspecified | CPT/HCPCS: 96127; 99202 ==

== ENCOUNTER 2024-09-08 12:41 | Outpatient (AMB) | payer MEDICARE, SELFPAY ==
--- NOTE | 2024-09-08 12:53 | MHC.OFFVIS ---
Vital Signs 09/08/24 12:58 Height 5 ft 5 in Weight 144 lb 6.444 oz BMI 24.0 BP 140/80 H Blood Pressure Location Lt brachial Position Sitting Respiration 16 Pulse 75 Pulse Source Pulse Oximeter Pulse Oximetry (%) 94 Oxygen Delivery Method Room Air Intake Visit Reasons: 3 month f/u Intake Note: Patient presents for 3 months follow up. Allergies Seasonal Allergies Allergy (Unknown, Verified 09/08/24 12:58) Unknown meloxicam Adverse Reaction (Intermediate, Uncoded 09/08/24 13:23) Heartburn HPI HPI 3 month f/u: Details: meloxicam caused GERD. She has taken ibuprofen without GERD. Shoulder pain has not changed. She is using diclofenac gel on shoulder with benefit. She has been doing exercises learned from PT at [facility] with benefit. Uses an arnica patch with benefit. Left 3rd fingers triggering. [facility] Medical History Seasonal allergies Hypothyroidism Hx of hypoglycemia Hx of supraventricular tachycardia Hiatal hernia GERD (gastroesophageal reflux disease) IBS (irritable bowel syndrome) Cataract Arthritis Graves disease Surgical History Hx of bilateral cataract extraction (~2017) Hx of hemorrhoidectomy (~2018) S/P DIAZ (total abdominal hysterectomy) History of esophagogastroduodenoscopy (EGD) (~2014) Hx of colonoscopy (~2019) History of bilateral oophorectomy H/O eye surgery Hx of tonsillectomy H/O hysterectomy for benign disease Family History Sister Uterine cancer Mother No problems noted. Father No problems noted. Social History Housing: House Patient Tobacco Use Status: Former Tobacco user e-Cigarette/Vaping Use: Former Use service: No Current occupational status: retired Cognitive needs: No Hearing needs: No Vision needs: Yes (reading glasses) Physical Exam Vital Signs: Last Vital Signs Pulse 75 09/08/24 12:58 Resp 16 09/08/24 12:58 BP 140/80 H 09/08/24 12:58 Pulse Ox 94 09/08/24 12:58 Oxygen Delivery Method Room Air 09/08/24 12:58 BMI result Body Mass Index 24.0 Const Other: General: Comfortable Skin: No lesions seen MSK: Localized tenderness to the right subacromial region. She has pain with range of motion of right shoulder: internal rotation, abduction and adduction. Tender to palpate left 3rd PIP with synovitis present. Triggering of left 3rd finger. Tender to palpate palmar aspect of left 3rd MCP without nodule palpated. Office Procedures AMB Joint Injection/Aspiration Joint Injection/Aspiration Details: Right subacromial bursa Prep: site was prepped using aseptic technique Injected: 40 mg of, Kenalog, with 1 mL of and 1% plain lidocaine Procedure: The patient tolerated the procedure well. Postprocedure protocol was discussed with patient. Coding 21611 - Large joint Procedure code (CPT) selection complete Office Meds lidocaine (PF) 10 mg/mL (1 %) injection solution Performing Provider: Frank Russo MD Performing Location: [facility] Administered by: Frank Russo MD on 09/08/24 21:42 Dose Route Admin Location Dispensed Lot Number Expiration Date [facility][NOTE 3] Propagator Laborer 10 mg Infiltration 2 mL [id number] [facility] Kenalog 40 mg/mL suspension for injection Performing Provider: Frank Russo MD Performing Location: [facility] Administered by: Frank Russo MD on 09/08/24 21:42 Dose Route Admin Location Dispensed Lot Number Expiration Date [facility][NOTE 3] Propagator Laborer 40 mg intrabursal 1 mL [place] [id number] [employer] Assessment & Plan Assessment & Plan (1) Subacromial impingement of right shoulder: Comment: Failed conservative management with PT exercises, ibuprofen, and diclofenac gel. She did not tolerate meloxicam due to exacerbation of GERD. We discussed next steps with cortisone injection. Patient agrees with plan. Code(s): M75.41 - Impingement syndrome of right shoulder Category: Medical Plan: Patient received right subacromial cortisone injection Return to clinic in 3 months (2) Left trigger finger: Code(s): M65.30 - Trigger finger, unspecified finger Category: Medical Qualifiers: Trigger finger location: middle finger Qualified Code(s): M65.332 - Trigger finger, left middle finger Plan: OT ordered with splinting If she does not find benefit with above, I will treat with cortisone injection next visit Return to clinic in 3 months (3) Osteoarthritis of hands, bilateral: Comment: Left 3rd PIP swelling likely related to OA flare. X-ray personally reviewed with patient, which reveals osteoarthritis of left hand. Labs revealed normal inflammatory markers and white cell count. Code(s): M19.041 - Primary osteoarthritis, right hand; M19.042 - Primary osteoarthritis, left hand Category: Medical Qualifiers: Osteoarthritis type: primary Qualified Code(s): M19.041 - Primary osteoarthritis, right hand; M19.042 - Primary osteoarthritis, left hand Plan: Continue ibuprofen as needed I we will consider left PIP cortisone injection next visit Return to clinic in 3 months Orders: Orders AMB Joint Injection/Aspiration Today M75.41 - Impingement syndrome of right shoulder OT Evaluation and Treatment Today M65.30 - Trigger finger, unspecified finger Medications: New lidocaine (PF) 10 mg Infiltration ONCE 1 mL 0RF M75.41 - Impingement syndrome of right shoulder Kenalog (triamcinolone acetonide) 40 mg intrabursal ONCE 1 mL 0RF NS M75.41 - Impingement syndrome of right shoulder Coding Level of Care Code Est Pt Level 4 (20904) Complex EM visit Add On G2211 Diagnoses Subacromial impingement of right shoulder M75.41 Trigger middle finger of left hand M65.332 Trigger finger location: middle finger Primary osteoarthritis of both hands M19.041; M19.042 Osteoarthritis type: primary CPT Codes Coding - 83525 Large joint: 51549 - Large joint ([id number])
[2024-09-08 12:58] VITALS: BP 140/80; PULSE 75; RESP 16; O2SAT 94; BMI 24.0
--- OUTSIDE RECORDS SUMMARY | 2024-09-08 13:22 | XMS_ITS ---
Author Organization [facility] Address [address] [place] [address] Care Team Providers Care Sheet Metal Technician Name Role Phone Yan Muro MD Primary Care Provider Solo Noguera [phone] REASON FOR VISIT R/S Procedure Encounters Encounter Location Date Provider Diagnosis [facility] [address] [place] [phone] 08/01/2024 Solo Adams Plan Of Treatment Next Appt Details Provider Name:Solo Adams , 10/31/2024 10:10:00 AM, [address] [place] [address] , [place], [place], [phone], Progress Notes * ZANDER MILLERB: (73 yo F)Acc No.[id number]:08/01/2024 Patient:?ANGELA CHUY :1950???Age:73 Y???Sex:Female Address:[address] [place] [address] * true * Date:? Generated for Printi alexandra/Danielito/eTransmitting on:?09/08/2024 01:22 PM EDT
--- OUTSIDE RECORDS SUMMARY | 2024-09-08 13:22 | XMS_ITS | Patient Health Record ---
Author Organization [facility] Address [address] [place] [address] Care Team Providers Care Toddler Guide Name Role Phone Yan Muro MD Primary Care Provider Solo Noguera Unavailable [phone] Allergies No Known Allergies Reason For Referral [...] Status Risk Notes Problem Irritable bowel syndrome (12432814) Irritable bowel syndrome (K58.9) Active confirmed Problem 599832950 Encounter for screening for malignant neoplasm of colon (Z12.11) Active confirmed Problem Flatulence, eructation and gas pain (517337112) Bloating (R14.0) Active confirmed Problem Constipation (19624364) Constipation (K59.00) Active confirmed Problem 279509368 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 Problem 00516126 Polyp of colon (K63.5) Active confirmed Problem 02843544 Hiatal hernia (K44.9) Active confirmed Problem 827284209 Hx of adenomatou s colonic polyps (Z86.010) Active confirmed Problem 070620268 Gastroesophageal reflux disease, unspecified whether esophagitis present (K21.9) Active confirmed Vital Signs Temperature 97.5 degrees Fahrenheit 04/26/2024 Blood pressure diastolic 00 mm Hg 04/26/2024 Height 64.5 in 04/26/2024 Blood pressure systolic 000 mm Hg 04/26/2024 Weight 142 lbs 04/26/2024 BMI 24.00 kg/m2 04/26/2024 Encounters Encounter Location Date Provider Diagnosis [facility] [address] [place] [address] 04/26/2024 Solo Adams Irritable bowel syndrome K58.9 ; Hx of adenomatous colonic polyps Z86.010 and Encounter for screening for malignant neoplasm of colon Z12.11 [facility] [address] [place] [address] 08/01/2024 Solo Adams Assessments Encounter Date Diagnosis [...] Name:Solo Alicia Adams , 10/31/2024 10:10:00 AM, [address] [place] [address] , [place], [place], [phone], Insurance Providers Payer Name Payer Address Payer Phone Subscriber Number Group Number Insured Name Patient Relationship to Insured Coverage Start Date Coverage End Date MEDICARE OF [place] [address] [place] [address] [id number] CHUY MILLER Self - patient is the insured [employer] ATTN CLAIMS [address] [place] [phone] [id number] CHUY MILLER Self - patient is the [...]
--- OUTSIDE RECORDS SUMMARY | 2024-09-08 13:22 | XMS_ITS ---
Author Organization [facility] Address [address] [place] [address] Care Team Providers Care [employer] Team Member Name Role Phone Yan Muro MD Primary Care Provider Solo Noguera Unavailable [phone] Allergies No Known Allergies REASON FOR VISIT [...] 04/26/2024 Encounters Encounter Location Date Provider Diagnosis [facility] [address] [place] [address] 04/26/2024 Solo Adams Irritable bowel syndrome K58.9 [...] Provider Name:Solo Adams , 10/31/2024 10:10:00 AM, [address] [place] [address], [id number], Progress Notes * PONCHO MILLERADOB: 2 (73 yo F)Acc No.[id number]:04/26/2024 Progress Notes Patient:?CHUY MILLER Provider:?Solo Adams MD :1950???Age:73 Y???Sex:Female D ate:04/26/2024 Address: [address] [place] Pcp:Yan Muro MD Subjective: * Chief Complaints: [...] Procedure Codes:?3017F COLOR ECTAL CA SCREEN DOC MEI3805H TOBACCO NON-JHGHY4740 BP SCR NOT PRFRM REC REASON NOS [...] MD Date:? 024 Generated for Luis Fernandoi alexandra/Fawilliamsg/eTransmitting on:?09/08/2024 01:21 PM EDT History and Physical Notes * [...]
--- OUTSIDE RECORDS SUMMARY | 2024-09-08 13:22 | XMS_ITS ---
Author Organization [facility] Address [address] [place] [address] Care Team Providers Care Social Sciences Instructor Name Role Phone Yan Muro MD Primary Care Provider Solo Noguera [phone] REASON FOR VISIT screening,hx polyps Encounters Encounter Location Date Provider Diagnosis [facility] [place] [address] [place] [phone] 08/03/2024 Solo Adams Plan Of Treatment Next Appt Details Provider Name:Solo Adams , 10/31/2024 10:10:00 AM, [address] [place] [address] , [place], [place], [phone], Progress Notes * PONCHO MILLERADOB: (73 yo F)Acc No.[id number]:08/03/2024 COLON WITH MAC Patient:?CHUY MILLER Provider:?Solo Adams MD :1950???Age:73 Y???Sex:Female D ate:08/03/2024 Address:[address] [place], [place] Pcp:Yan Muro MD Subjective: * Chief Complaints: [...] Date:? 025 Generated for Luis Fernandoi alexandra/Danielito/eTransmitting on:?09/08/2024 01:21 PM EDT
== END 2024-09-08 13:42 | disposition home or self-care (01) ==
LOC: HO.RHES 12:42
PROVIDERS: PCP Internal Medicine; Visit Provider Internal Medicine Rheumatology
DX: M75.41 Impingement syndrome of right shoulder (principal); M65.332 Trigger finger, left middle finger; M19.041 Primary osteoarthritis, right hand; M19.042 Primary osteoarthritis, left hand
CPT/HCPCS: 20610; 99213

== ENCOUNTER → 2024-09-08 12:41 | Outpatient (BNVA) | payer MEDICARE, SELFPAY | PROVIDERS: PCP Internal Medicine; Visit Provider Internal Medicine Rheumatology | DX: M75.41 Impingement syndrome of right shoulder (principal); M65.332 Trigger finger, left middle finger; M19.041 Primary osteoarthritis, right hand; M19.042 Primary osteoarthritis, left hand | CPT/HCPCS: 20610; 99212; J2003; J3300 ==

== ENCOUNTER 2024-09-14 08:41 | Outpatient (RCR) | payer MEDICARE, SELFPAY ==
--- NOTE | 2024-09-14 09:21 | MHC.OT.DC ---
[address] [phone] F: [phone] Occupational Therapy Discharge Note Patient Name: Joanie Franco Provider: Frank Russo Diagnosis: L MF trigger finger Date of Surgery: Date of Evaluation: 09/14/24 Date of Discharge: Treatments to Date: 1 Cancellations to Date: No Shows to Date: Discharge Status: Discharge Summary: 1 x visit for fabrication of orthoses and HEP Joanie was a pleasure to work with. Thank you for including me in her POC Electronically Signed By: Madeline Romo OTR/L Reviewed/agree with student documentation: Therapist: Please Sign and return to therapist, thank you for your referral.
== END 2024-09-14 09:21 | disposition home or self-care (01) ==
LOC: HO.OT 08:41
PROVIDERS: PCP Internal Medicine; Visit Provider Internal Medicine Rheumatology
DX: M65.30 Trigger finger, unspecified finger (principal)
CPT/HCPCS: 97165; 97535; 97760

== ENCOUNTER 2024-11-11 11:51 | Outpatient (AMB) | payer MEDICARE, SELFPAY ==
--- OUTSIDE RECORDS SUMMARY | 2024-08-03 05:30 | XMS_ITS ---
Author Organization [facility] Address [address] [place] [address] Care Team Providers Care Nursery Teacher Name Role Phone Jina (RETIRED) Yan MANCILLA Primary Care Provide Solo Gómez Unavailable [phone] REASON FOR VISIT screening,hx polyps Encounters Encounter Location Date Provider Diagnosis [facility] [place] [address] [place] [phone] 08/03/2024 Solo Adams Plan Of Treatment Next Appt Details Provider Name:Solo Adams , 01/09/2025 01:10:00 PM, [address] [place] [address], [phone], Progress Notes * PONCHO MILLERADOB: 2 (73 yo F)Acc No.[id number]:08/03/2024 COLON WITH MAC Patient: CHUY PENALOZA Provider: Vj Adams MD :1950 A ge:73 Y S ex:Female Date:08/03/2024 Address:[address] [facility] [place] Pcp:Yan Muro (RETIRED )MD Subjective: * Chief [...] 08/03/2024 Generated for Printi ng/Faxing/eTransmitting on: 0 11/11/2024 02:55 AM EDT
[2024-11-11 11:26] VITALS: BP 132/80; PULSE 83; TEMP 36.1; O2SAT 98; BMI 23.8
--- NOTE | 2024-11-11 11:26 | A.OFFPC_ITS ---
Vital Signs 11/11/24 11:26 Height 5 ft 5 in Weight 143 lb BMI 23.8 BP 132/80 Blood Pressure Location Lt brachial Position Sitting Pulse 83 Pulse Source Pulse Oximeter Temp 97 F Temp Source Axillary Pulse Oximetry (%) 98 Oxygen Delivery Method Room Air Intake Visit Reasons: Routine Supervisor Dehydrogenation Required: No Accompanied by: Self / Same As Patient Allergies Seasonal Allergies Allergy (Unknown, Verified 11/11/24 11:27) Unknown meloxicam Adverse Reaction (Intermediate, Uncoded 09/08/24 13:23) Heartburn Tobacco use date assessed: 11/11/24 Fall risk assessment: No Falls in past year Last assessed Fall Risk: 11/11/24 Dental Screening Dental Screen Date: 11/11/24 Did you have a dental visit in the last 12 months?: Yes Did you have a dental problem in the last 6 months where you did not have access to dental care?: No HPI HPI Comments History of Present Illness Details 73 year old female with a past medical h istory of hypothyroid, hyperlipdiemia, SVT, colon polyps, allergic rhinitis presenting for follow up. Seen in ER yesterday at [facility]. Developed chest pressure palpitations. Not available for review. She still feels unwell. Chest pressure has subsided. S he is anxious, feeling nauseous and having some back pain. She tells me EKG and labs were done yesterday and were reassuring CV: On metoprolol daily. History of SVT. Endocrine: Follows with Dr Mckee. TSH. On levothyroxine 25mcg six days a week MSK: Polyarthralgia. OA. Follows with rheumatology. Takes chondriotin and glucosamine, biotin, DHEA, vitamin D3, flaxseed. she tried metformin after reading about anti-inflammatory properties without any benefit so she stopped it about 2 weeks agoe. ROS see HPI PHYSICAL EXAM: GENERAL: Alert and oriented x 3. NAD EYES: EOMI. Anicteric. HENT: Moist mucous membranes. No scleral icterus. No cervical lymphadenopathy. LUNGS: Clear to auscultation bilaterally. CARDIOVASCULAR: Regular rate and rhythm. No murmur. No JVD. ABDOMEN: Soft, non-tender +bs EXTREMITIES: No edema. Non-tender. SKIN: No rashes or lesions. Warm. NEUROLOGIC: Right coarse hand tremor PSYCHIATRIC: Cooperative. Appropriate mood and affect [facility] Medical History (Updated 11/13/24 @ 19:08 by Carly Vizcaino MD) Seasonal allergies Hypothyroidism Hx of hypoglycemia Hx of supraventricular tachycardia Hiatal hernia GERD (gastroesophageal reflux disease) IBS (irritable bowel syndrome) Cataract Arthritis Graves disease Surgical History Hx of bilateral cataract extraction (~2017) Hx of hemorrhoidectomy (~2018) S/P DIAZ (total abdominal hysterectomy) History of esophagogastroduodenoscopy (EGD) (~2014) Hx of colonoscopy (~2018) History of bilateral oophorectomy H/O eye surgery Hx of tonsillectomy H/O hysterectomy for benign disease Family History Sister Uterine cancer Mother No problems noted. Father No problems noted. Social History Housing: House Patient Tobacco Use Status: Never used Tobacco e-Cigarette/Vaping Use: Never Used service: No Current occupational status: employed Cognitive needs: No Hearing needs: No Vision needs: Yes (reading glasses) Questionnaire PHQ-9 Over the last 2 weeks, how often have you been bothered by any of the following problems? 1. Little interest or pleasure in doing things: not at all 2. Feeling down, depressed, or hopeless: not at all 3. Trouble falling or staying asleep, or sleeping too much: not at all 4. Feeling tired or having little energy: not at all 5. Poor appetite or overeating: not at all 6. Feeling bad about yourself - or that you are a failure or have let yourself or your family down: not at all 7. Trouble concentrating on things, such as reading the newspaper or watching television: not at all 8. Moving or speaking so slowly that other people could have noticed. Or the opposite - being so fidgety or restless that you have been moving around a lot more than usual: not at all 9. Thoughts that you would be better off or of hurting yourself in some way: not at all Total score: 0 Depression Screening Interpretation: Negative Depression Screening Done: Yes 54356 - PHQ-9 Billing: Yes Source: Developed by Drs. Solo De La Torre, Isela Pickens, Marshall Abbasi and colleagues, with an educational familia from [employer]. Thrive Questionnaire Date Thrive assessed: 11/11/24 I am a: Patient Within the past 12 months, did the food you bought not last and you didn't have the money to get more?: Never true Within the past 12 months, did you worry whether your food would run out before you got money to buy more?: Never true Do you have trouble paying for medicines?: No Do you have trouble getting transportation to medical appointments?: No Do you have trouble paying your heating and electricity bill?: No Do you have trouble taking care of your child, family member or friend?: No Do you have trouble with day-to-day activities such as bathing, preparing meals, shopping, managing finances, etc.?: No Are you currently unemployed and looking for a job?: No Are you interested in more education?: No THRIVE Score: 0 AUDIT C Alcohol Use Questionnaire (AUDIT-C) 1. How often do you have a drink containing alcohol?: Never 3. How often do you have six or more drinks on one occasion?: Never Total Score: 0 KOFI-7 AMB Questionnaire KOFI-7 Date KOFI - 7 assessed: 11/11/24 Feeling nervous, anxious, or on edge: 0 = Not at all Not being able to stop or control worryin = Not at all Worrying too much about different things: 0 = Not at all Trouble relaxin = Not at all Being so restless that it is hard to sit still: 0 = Not at all Becoming easily annoyed or irritable: 0 = Not at all Feeling afraid as if something awful might happen: 0 = Not at all Total KOFI-7 score (0-4 normal; 5-9 mild; 10-14 moderate; 15-21 severe): 0 Source: Developed by Drs. Solo De La Torre, Isela Pickens, Marshall Abbasi and colleagues, with an educational familia from [employer]. Physical exam (Primary Care) Vital Signs: Last Vital Signs Temp 97 F 11/11/24 11:26 Pulse 83 11/11/24 11:26 BP 132/80 11/11/24 11:26 Pulse Ox 98 11/11/24 11:26 Oxygen Delivery Method Room Air 11/11/24 11:26 BMI result Body Mass Index 23.8 Tobacco/Smoking Status: Tobacco use Status Tobacco use date assessed 11/11/24 11/11/24 11:28 Patient Tobacco Use Status Never used Tobacco 11/11/24 12:00 e-Cigarette/Vaping Use Never Used 11/11/24 12:00 PHQ-9: PHQ-9 Score PHQ-9: Total score 0 11/11/24 13:15 Depression Screening Interpretation: Negative Thrive Assessment: Date of Thrive Assessment Date Thrive assessed 11/11/24 11/11/24 11:28 Coding Level of Care Code Est Pt Level 4 (33575) Diagnoses Chest pain, unspecified type R07.9 Chest pain type: unspecified Hx of supraventricular tachycardia Z86.79 Palpitations R00.2 Hypothyroidism, unspecified type E03.9 Hypothyroidism type: unspecified Additional Codes PHQ-9 - 48186 - PHQ-9 Billing: Yes ([id number]) Assessment & Plan Assessment & Plan (1) Chest pain: Code(s): R07.9 - Chest pain, unspecified Category: Medical Qualifiers: Chest pain type: unspecified Qualified Code(s): R07.9 - Chest pain, unspecified (2) Hx of supraventricular tachycardia: Code(s): Z86.79 - Personal history of other diseases of the circulatory system Category: Medical (3) Palpitations: Code(s): R00.2 - Palpitations Category: Medical (4) Hypothyroidism: Comment: s/p irradiation for Grave's disease Code(s): E03.9 - Hypothyroidism, unspecified Category: Medical Qualifiers: Hypothyroidism type: unspecified Qualified Code(s): E03.9 - Hypothyroidism, unspecified Plan Chest pain. ER visit yesterday. Recommended further cardiac testing. This is ordered. Referral to cardiology placed. labs ordered Advised to go back to er if chest pain recurs or shortness of breath, palpitations develop Orders: Orders TSH reflex Free T4 11/11/24 E03.9 - Hypothyroidism, unspecified Troponin-I High Sensitivity 11/11/24 R00.2 - Palpitations Lyme IgG/IgM w/reflex to WB 11/11/24 R00.2 - Palpitations, R07.9 - Chest pain, unspecified, Z86.79 - Personal history of other diseases of the circulatory system CA stress test 11/11/24 E03.9 - Hypothyroidism, unspecified, R07.9 - Chest pain, unspecified, Z86.79 - Personal history of other diseases of the circulatory system NM cardiolite stress test 11/11/24 R00.2 - Palpitations, R07.9 - Chest pain, unspecified, Z86.79 - Personal history of other diseases of the circulatory system UA CC w/rflx Micro + Cult 11/11/24 R53.81 - Other malaise CA echo transthoracic complete 11/11/24 R07.9 - Chest pain, unspecified, Z86.79 - Personal history of other diseases of the circulatory system ECG holter monitor 48 hour 11/11/24 R07.9 - Chest pain, unspecified, Z86.79 - Personal history of other diseases of the circulatory system Referrals Cardiology Referral R00.2 - Palpitations, R07.9 - Chest pain, unspecified, Z86.79 - Personal history of other diseases of the circulatory system Vascular Surgery Referral I83.813 - Varicose veins of bilateral lower extremities with pain Medications: New tramadol 50 mg PO Q8H PRN 21 tabs 0RF pain
== END 2024-11-11 12:21 | disposition home or self-care (01) ==
LOC: HO.HMCHD 11:52
PROVIDERS: PCP Internal Medicine; Visit Provider Internal Medicine
DX: R07.9 Chest pain, unspecified (principal); Z86.79 Personal history of other diseases of the circulatory system; R00.2 Palpitations; E03.9 Hypothyroidism, unspecified

== ENCOUNTER → 2024-11-11 11:51 | Outpatient (BNVA) | payer MEDICARE, SELFPAY | PROVIDERS: PCP Internal Medicine; Visit Provider Internal Medicine | DX: R07.9 Chest pain, unspecified (principal); R00.2 Palpitations; E03.9 Hypothyroidism, unspecified; Z86.79 Personal history of other diseases of the circulatory system; Z79.899 Other long term (current) drug therapy; Z13.31 Encounter for screening for depression; Z13.30 Encounter for screening examination for mental health and behavioral disorders, unspecified | CPT/HCPCS: 96127; 99212 ==

== ENCOUNTER 2024-11-15 07:32 | Outpatient (REF) | payer MEDICARE, SELFPAY ==
--- OUTSIDE RECORDS SUMMARY | 2024-08-03 05:30 | XMS_ITS ---
Author Organization [facility] Address [address] [place] [address] Care Team Providers Care Audit Spec Name Role Phone Jina (RETIRED) Yan MANCILLA Primary Care Provide Solo Gómez Unavailable [phone] REASON FOR VISIT screening,hx polyps Encounters Encounter Location Date Provider Diagnosis [facility] [place] [address] [place] [phone] 08/03/2024 Solo dAams Plan Of Treatment Next Appt Details Provider Name:Solo Adams , 01/09/2025 01:10:00 PM, [address] [place] [address], [phone], Progress Notes * PONCHO MILLERADOB: 2 (73 yo F)Acc No.[id number]:08/03/2024 COLON WITH MAC Patient: CHUY PENALOZA Provider: Vj Adams MD :1950 A ge:73 Y S ex:Female Date:08/03/2024 Address:[address] [facility] [id number] Pcp:Yan Muro (RETIRED )MD Subjective: * Chief [...] Adams MD Date: 0 08/03/2024 Generated for Printi ng/Faxing/eTransmitting on: 0 11/15/2024 07:34 AM EDT
--- OUTSIDE RECORDS SUMMARY | 2024-11-15 07:35 | XMS_ITS | Clinical Summary ---
Author Organization [facility] Address [facility] [address] [address] Phone Care Team Providers Care Law Office Receptionist Name Role Phone Yan Muro MD Primary Care Provider Allergies Active Allergy Reactions Criticality Noted Date Comments Gluten Protein 01/08/2016 Medrol (Methylprednisolone) Palpitations Medium 2015 Tachycardia Milk Containing Products (Dairy) 01/01/2024 Wheat Other (See Comments) Low 08/26/2012 bloating Medications metoprolol (LOPRESSOR) 25 MG tablet Take 12.5 mg by mouth 2 (two) times a day. Active fluticasone propionate (FLONASE) 50 mcg/actuation nasal spray 2 sprays by Nasal route daily. Dose: Not available; Form: Not available; Route: MISTY; Frequency: as directed; Directions: Into each nostril.; Details: Not available; Date: 08/26/2012 08/27/19 13 Active fexofenadine (IFTIKHAR) 180 MG tablet Dose: 180 MG; Form: Take 1 TABLET; Route: PO; Frequency: QD; Directions: Not available; Details: Dispense: Tablet(s); Date: 08/26/2012 08/27/19 13 Active Lactobac. rhamnosus GG-inulin 10 billion cell -200 mg CpSP Take 200 mg by mouth daily. Active prasterone, dhea, 25 mg Cap Take 25 mg by mouth. Active ibuprofen (ADVIL,MOTRIN) 200 MG tablet Take 200-400 mg by mouth daily. Active acetaminophen (TYLENOL) 325 mg tablet Take 2 tablets (650 mg total) by mouth every 4 (four) hours as needed for mild pain. 01/08/20 16 Active Additional Information Patient taking differently: 325 mgOral Every 4 hours PRN, mild pain or 1-3 (on a general 0-10 scale), Reported on 01/01/2024 levothyroxine (SYNTHROID, LEVOTHROID) 125 MCG tabletIndications: Postablative hypothyroidism TAKE 1 TABLET BY MOUTH 6 DAYS A WEEK, SKIP THE 7TH DAY 78 tablet 3 08/27/19 25 Active Active Problems Problem Noted Date Diagnosed Date Postablative hypothyroidism 06/15/2023 Assessment & Plan (07/29/2024 3:46 PM EDT): Reports good consistency taking rx appropriately. Did not feel well with the addition of T3, so we returned to LT4 monotherapy. Will repeat labs today & adjust rx as appropriate. If normal will repeat prior to follow up. To call with symptoms concerning for thyroid levels being off (unexplained change in energy, weight, or bowels or feeling too cold or too warm) or more than 10-15 pound change in weight. Assessment & Plan (01/01/2024 5:23 PM EDT): Reports good consistency taking rx appropriately. Did not feel well with the addition of T3. Will repeat labs prior to follow up. Call with symptoms concerning for thyroid levels being off (unexplained change in energy, weight, or bowels or feeling too cold or too warm) or more than 10-15 pound change in weight. Assessment & Plan (06/15/2023 8:04 PM EST): Biochemically euthyroid. Reports good consistency taking rx appropriately. She has not been feeling as well since decrease in levothyroxine due to low TSH & change in her estrogen regimen. Will lower levothyroxine - she will skip 2 more pills/month & add low dose T3. Will repeat labs in ~ 2 months. To call if doesn't hear from me within 1-2 weeks or if any issues with shift in rx. Vitamin D deficiency, unspecified 06/15/2023 Irritable bowel syndrome 06/15/2023 Assessment & Plan (01/01/2024 5:26 PM EDT): Not feeling as well since came of of ERT. Discussed risks/benefits of rx, rationale for why it was stopped. Discussed labs done via PCP. + IVÁN w/ low titer, can address w/ rheumatology, but unlikely of clinical significance w/ titer. Has had bone densities via rheumatology. Discussed there will likely be accelerated bone loss off of rx. Would continue to monitor via rheum (I am happy to monitor if they/she prefers). Advised to get adequate calcium in diet. Menopausal symptoms 06/15/2023 Assessment & Plan (01/01/2024 5:26 PM EDT): Not feeling as well since came of of ERT. Discussed risks/benefits of rx, rationale for why it was stopped. Discussed labs done via PCP. + IVÁN w/ low titer, can address w/ rheumatology, but unlikely of clinical significance w/ titer. Has had bone densities via rheumatology. Discussed there will likely be accelerated bone loss off of rx. Would continue to monitor via rheum (I am happy to monitor if they/she prefers). Advised to get adequate calcium in diet. Assessment & Plan (06/15/2023 8:05 PM EST): She has not felt as well on transdermal rx. Discussed that it is a safer regimen and her levels are where they should be on current rx. Weight gain 06/15/2023 Assessment & Plan (06/15/2023 8:07 PM EST): Discussed role of diet, exercise. She is getting ~ 2000 Calories/day & not getting much exercise. Advised to cut back on calorie intake & increase activity. Advised her to consider seeing RD for a better idea of appropriate dietary intake/adjustments. Seasonal allergies 01/08/2016 Overview (06/16/2017): seasonal;PHS Allergy Remediation Deviated nasal septum 03/29/2015 Overview (04/03/2015): Deviated nasal septum Graves' disease 08/26/2012 Overview (06/17/2014): Graves' disease Sinusitis 08/26/2012 Overview (06/17/2014): Sinusitis Arthritis 08/26/2012 Overview (06/17/2014): Arthritis Gastroesophageal reflux disease 08/26/2012 Overview (06/17/2014): Acid reflux Headache 08/26/2012 Overview (06/17/2014): Headache Encounters Date Type Department Care Team Description 08/26/2024 Refill [facility] [address] [place] [address] Makayla Mckee MD Medication Refill from Last 3 Months Social History Tobacco Use Types Packs/Day Years Used Date Smoking Tobacco: Never Alcohol Use Standard Drinks/Week Comments No 0 (1 standard drink = 0.6 oz pur e alcohol) Education Answer Date Recorded Are you interested in more education? Not on tanvir e 08/21/2022 Are you concerned about learning? Not on file 08/21/2022 No 08/21/2022 No 08/21/2022 Digital Access Answer Date Recorded No 09/22/2022 No 09/22/2022 Reliable internet access at home? Not on file 09/22/2022 Device with a working camera? Not on file Comments Unknown Sex and Gender Information Value Date Recorded Sex Assigned at Not on file Legal Sex Female 8:09 PM EST Gender Identity Not on file Sexual Orientation Not on file Last Filed Vital Signs Vital Sign Reading Time Taken Comments Blood Pressure 130/78 07/29/2024 11:34 AM EDT Pulse 76 07/29/2024 11:34 AM EDT Temperature 36.7 C (98 F) 01/08/2016 2:30 PM EDT Respiratory Rate 18 01/08/2016 2:30 PM EDT Oxygen Saturation 96% 07/29/2024 11:34 AM EDT Inhaled Oxygen Concentration - - Weight 65.8 kg (145 lb) 07/29/2024 11:34 AM EDT Height 164 cm (5' 4.57 ) 07/29/2024 11:34 AM EDT Body Mass Index 24.45 07/29/2024 11:34 AM EDT Plan of Treatment Upcoming Encounters Date Type Department Care Team (Late st Contact Info) Description 08/03/2025 11:40 AM EDT Office Visit [facility] [address] [place] [address] [place] [address] Makayla Mckee MD [address] [place] [phone] [email or web address] Health Maintenance Due Date Last Done Comments Adult Td,Tdap Booster 1950 LIPID PANEL 1951 DEPRESSION SCREENING 1963 HEPATITIS C SCREENING 12/04/1969 MAMMOGRAM 1991 COLOGUARD 12/04/1996 COLONOSCOPY 12/04/1996 COLORECTAL CANCER SCREENING 12/04/1996 FIT TEST 12/04/1996 FOBT 12/04/1996 SIGMOIDOSCOPY 12/04/1996 VIRTUAL COLONOSCOPY 12/04/1996 PNEUMOCOCCAL VACCINES (50+ years) (1 of 1 - PCV) 12/04/2001 OSTEOPOROSIS SCREENING INITIAL (ONE-TIME) 12/04/2016 ZOSTER VACCINES (2 of 3) 03/09/2017 01/12/2017 COVID-19 VACCINE (2 - 2023- season) 2023 07/10/2020 TSH LEVEL 07/29/2025 07/29/2024, 11/27, 11/16/2023, Additional history exists RSV VACCINE (1 - 1-dose 75+ series) 12/04/2026 SMOKING STATUS SCREENING (Once After 26 Yrs) Completed 07/29/2024 HEPATITIS A VACCINES Aged Out No long er eligible based on patient's age to complete this topic HIB VACCINES Aged Out No longer eligi ble based on patient's age to complete this topic MENINGOCOCCAL VACCINES (ACWY) Aged Out No longer eligible based on patient's age to complete this topic MENINGOCOCCAL VACCINES (B) Aged Out N o longer eligible based on patient's age to complete this topic Medical Devices Implanted Type Area Fios Line Installer Device Identifier Shelf Expiration Date Model / Serial / Lot Tutoplast Procssd-Pericar d 1.0cm X 1.0cm - [id number] Implanted:Qty: 1 on 09/14/2019 by Jose Healy MD at [facility] Graft Right: [employer] 09/14/2019 / / [id number] Tutoplast Procssd-Pericar d 1.0cm X 1.0cm - [id number] Implanted:Qty: 1 on 01/08/2016 by Jose Healy MD at [facility] Left: [employer] 03/26/2020 / / [id number] Procedures Procedure Name Priority Date/Time Associated Diagnosis Comments TSH WITH REFLEX Routine 07/29/2024 12:32 PM EDT Postablative hypothyroidism from Last 3 Months or Most Recently Relevant to Health Maintenance Results * TSH with reflex (07/29/2024 12:32 PM EDT) TSH 2.04 0.27 - 4.20 uIU/mL [facility] Blood 07/29/2024 12:3 2 PM EDT 07/29/2024 12:37 PM EDT Makayla Mckee MD LAB BLOOD ORDERABLES F inal Result [facility] [address] [place] [address] from Last 3 Months or Most Recently Relevant to Health Maintenance Insurance [employer] MEDEX SUPPLEMENT MEDICARE PART A & B [employer] MEDEX SUPPLEMENT MEDICARE PART A & B [employer] MEDEX SUPPLEMENT MEDICARE PART A & B MEDICARE PART A & B [employer] MEDEX SUPPLEMENT MEDICARE PART A & B [employer] MEDEX SUPPLEMENT MEDICARE PART A & B Advance Directives For more information, please contact: [phone] (9AM - 5PM [facility], Thursday-Thursday) Documents on File Type Date Recorded 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 It is not the complete legal health record.[facility]
[2024-11-15 11:23] LABS: Appearance Urine Turbid; Glucose Urine UA 100 mg/dL (Negative); PH 6.0 (5.0-9.0); Specific Gravity - Urine 1.025 (1.005-1.025); UMIC TRIGGER UACC YES
[2024-11-15 11:35] LABS: Hematocrit 37.9 % (37.0-47.0); Hemoglobin 13.0 g/dl (12.0-16.0); Mean Corpuscular HGB Conc 34.3 g/dl (31.0-35.0); Mean Corpuscular Hemoglobin 31.0 pg (27.0-33.0); Mean Corpuscular Volume 90.2 fL (80.0-98.0); NRBC Abs Auto 0.000 X10*3/uL (0.0-0.012); NRBC Pct Auto 0.0 /100WBC (0.0-0.2); Red Blood Count 4.20 X10*6/uL (4.20-5.50); White Blood Count 2.7 X10*3/uL (4.8-10.8)
[2024-11-15 11:45] LABS: Hemoglobin A1C 146.1423 umol/L; Total Hemoglobin (HGBA1C) 3443.6230 umol/L
[2024-11-15 11:45] LABS: UACC Culture Trigger YES
[2024-11-15 11:47] LABS: Troponin-I High Sensitivity 6.3 ng/L (<3.5-17.0)
[2024-11-15 12:00] LABS: Alanine Aminotransferase 80 U/L (0-31); Albumin Level 3.7 g/dL (3.5-5.0); Alkaline Phosphatase 62 U/L (39-117); Anion Gap 12 (12-20); Aspartate Amino Transferase 82 U/L (5-31); Blood Urea Nitrogen 16 mg/dL (9-16); Calcium 8.5 mg/dL (8.4-10.2); Carbon Dioxide 24 mmol/L (22-29); Chloride 110 mmol/L (96-108); Cholesterol 168 mg/dL (<200); Estimated Glomerular Filt Rate > 60; HDL Cholesterol 32 mg/dL (>40); Potassium 3.6 mmol/L (3.3-5.1); Sodium 142 mmol/L (135-145); Total Protein 5.9 g/dL (6.5-8.0); Triglycerides 217 mg/dL (<150)
[2024-11-15 12:17] LABS: Atypical Lymph Absolute Manual 0.3 x10*3/uL; Atypical Lymphs Percent Manual 10 % (0-6); Band Neutrophils Percent 7 % (3-5); Basophils Percent Manual 1 % (0-2); Lymphocytes Absolute Manual 0.8 X10*3/uL (1.2-4.9); Lymphocytes Percent Manual 29 % (20-40); Monocytes Absolute Manual 0.2 X10*3/uL (0.1-1.2); Monocytes Percent Manual 6 % (2-11); Neutrophils Absolute Manual 1.5 X10*3/uL (2.0-8.3); Neutrophils Percent Manual 47 % (45-73)
[2024-11-15 12:20] LABS: Large Platelet PRESENT; RBC Morphology NORMAL
[2024-11-16 05:38] LABS: Lyme Abs Screen <0.90 index
== END 2024-11-15 07:33 | disposition home or self-care (01) ==
LOC: HO.WFDLDS 07:32
PROVIDERS: Visit Provider Internal Medicine
DX: M19.041 Primary osteoarthritis, right hand (principal); M19.042 Primary osteoarthritis, left hand; M19.90 Unspecified osteoarthritis, unspecified site; E03.9 Hypothyroidism, unspecified; E78.5 Hyperlipidemia, unspecified; R00.2 Palpitations; R07.9 Chest pain, unspecified; Z86.79 Personal history of other diseases of the circulatory system; R53.81 Other malaise; Z13.228 Encounter for screening for other metabolic disorders
CPT/HCPCS: 36415; 80053; 80061; 81001; 83036; 84443; 84484; 85007; 85025; 85027; 86617; 86618; 87086

== ENCOUNTER → 2024-11-24 08:55 | Outpatient (REF) | payer MEDICARE, SELFPAY ==
--- OUTSIDE RECORDS SUMMARY | 2024-08-03 05:30 | XMS_ITS ---
Author Organization [facility] Address [address] [place] [address] Care Team Providers Care Portal Developer Name Role Phone Jina (RETIRED) Yan MANCILLA Primary Care Provide Solo Gómez Unavailable [phone] REASON FOR VISIT screening,hx polyps Encounters Encounter Location Date Provider Diagnosis [facility] [address] [place] [phone] 08/03/2024 Solo Adams Plan Of Treatment Next Appt Details Provider Name:Solo Adams , 01/09/2025 01:10:00 PM, [address] [place] [address], [phone], Progress Notes * PONCHO MILLERADOB: 2 (73 yo F)Acc No.[id number]:08/03/2024 COLON WITH MAC Patient: CHUY PENALOZA Provider: Vj Adams MD :1950 A ge:73 Y S ex:Female Date:08/03/2024 Address:[address] [facility] [id number] Pcp:Yan Muro (RETIRED )MD Subjective: * Chief [...] 08/03/2024 Generated for Printi ng/Faxing/eTransmitting on: 0 11/24/2024 09:16 AM EDT
--- NOTE | ~2024-11-24 | NM_ITS ---
Lexiscan Myocardial perfusion study Indication: Chest pain to evaluate for myocardial ischemia Technique: The patient was brought in for a Lexiscan perfusion study on 11/24/2024 and was injected 0.4 mg of Lexiscan intravenously. Within a minute of this injection 25 mCi of sestamibi was given intravenously. Images were obtained using the SPECT gamma camera interlaced with the gating device. Images were obtained in supine position. Resting perfusion study was performed on 11/25/2024. Patient was administered 25 mCi of sestamibi intravenously at rest. Images were then obtained in supine position. Images obtained without without CT attenuation. Total DLP 86 mGy-cm. Images were processed with the software and compared side to side in short axis, horizontal long axis and vertical long axis views. Findings: The stress perfusion study showed nonattenuated images show mildly reduced uptake in the apex of the LV myocardium. Remainder of the LV myocardium is normally perfused. Attenuated corrected images show mildly reduced uptake in the apex, distal septum as well as the distal anterior wall of the LV myocardium. Remainder of the LV myocardium is normally perfused.. The gated study shows normal LV systolic function with calculated LVEF of 74%. LV cavity is normal in size. The gated study shows almost systolic wall thickening and contraction of segments. Resting study shows nonattenuated images show normal uptake of radiotracer in all segments of the LV myocardium. Attenuated corrected images show partial reversibility in the apex, distal septum and distal anterior wall of the LV myocardium.. Gating at rest reveals normal systolic wall motion with ejection fraction at 74%. The findings are consistent with possible reversible defect small area of the apex suggestive ischemia.. NM/NM cardiolite stress test Impression: 1. Myocardial perfusion imaging study shows equivocal small area of apical ischemia 2. Gated LVEF is 74% 3. Transient ischemic dilatation not present Nondiagnostic changes on EKG. Electronically signed by: Miguel Serrano MD 11/27/2024 11:59 AM EDT
--- NOTE | 2024-11-24 08:59 | CA_ITS ---
Acquisition Time: 2024-11-24 09:41:51 Total Exercise Time: 00:02:29 Test Indications: CHEST PAIN Medications: METOPROLOL Protocol: JERONIMO Max HR: 144 BPM 97% of Pred: 148 BPM Max BP: 204/94 mmHG Max Work Load: 4.6 METS Exercise stress test with exercise 2 mins 29 secsof Jeronimo Protocol, requesting to stop due to SOB, no chest pain. No EKG changes. With hypertensive response to exercise BP 204/94. Test switched to Lexiscan. Pharmacological stress test with Lexiscan while pt swings her legs in chair, with reports of SOB, headache, and palpitations, with isolated PACs and PVCs, with normotensive response to injection. Nondiagnostic EKG for ischemia. In recovery, pt treated with IVP Aminophylline 75 mg to reverse Lexiscan after which pt feeling back to baseline. Nuclear images pending. Test reviewed with Dr. Serrano. Referred By: Carly Vizcaino Electronically Signed By: Conor Velarde
--- OUTSIDE RECORDS SUMMARY | 2024-11-24 09:16 | XMS_ITS | Clinical Summary ---
Author Organization [facility] Address [facility] [employer] [address] [address] Phone Care Team Providers Care Policy Advisor Name Role Phone Yan Muro MD Primary [...] Team Description 08/26/2024 Refill [facility] [address] [place] [address] Makayla Mckee MD Medication Refill from Last [...] 11:40 AM EDT Office Visit [facility] [address] [place] [address] [place] [address] Makayla Mckee MD [address] [place] [phone] [email or web address] Maintenance Due Date Last Done Comments [...] this topic Medical Devices Implanted Type Area Manager Summer Device Identifier Shelf Expiration Date Model / Serial / Lot Tutoplast Procssd-Pericar d 1.0cm X 1.0cm - [id number] Implanted:Qty: 1 on 09/14/2019 by Jose Healy MD at [facility] Graft Right: [employer] 09/14/2019 / / [id number] Tutoplast Procssd-Pericar d 1.0cm X 1.0cm - [id number] Implanted:Qty: 1 on 01/08/2016 by Jose Healy MD at [facility] Left: [employer] 03/26/2020 / / [id number] Procedures Procedure Name Priority Date/Time Associated Diagnosis Comments TSH WITH REFLEX Routine 07/29/2024 12:32 PM EDT Postablative hypothyroidism from Last 3 Months or Most Recently Relevant to Health Maintenance Results * TSH with reflex (07/29/2024 12:32 PM EDT) TSH 2.04 0.27 - 4.20 uIU/mL [facility] Blood 07/29/2024 12:3 2 PM EDT 07/29/2024 12:37 PM EDT Makayla Mckee MD LAB BLOOD ORDERABLES F inal Result [facility] [address] [place] [address] from Last 3 Months or Most Recently Relevant to Health Maintenance Insurance [place] [employer] MEDEX SUPPLEMENT MEDICARE PART A & B [employer] MEDEX SUPPLEMENT MEDICARE PART A & B [employer] MEDEX SUPPLEMENT MEDICARE PART A & B MEDICARE PART A & B [employer] MEDEX SUPPLEMENT MEDICARE PART A & B [employer] MEDEX SUPPLEMENT MEDICARE PART A & B Advance Directives For more information, please contact: [phone] (9AM - 5PM [facility] Thursday[facility]Thursday) Documents on File Type Date Recorded 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 It is not the complete legal health record.[facility]
== END ==
LOC: HO.CARD 08:55
PROVIDERS: PCP Internal Medicine; Visit Provider Internal Medicine
DX: R07.9 Chest pain, unspecified (principal); E03.9 Hypothyroidism, unspecified; R00.2 Palpitations; Z86.79 Personal history of other diseases of the circulatory system
CPT/HCPCS: 78452; 93017; A9500; J0280; J2785

== ENCOUNTER → 2024-11-24 08:59 | Outpatient (BNV) | payer MEDICARE, SELFPAY | PROVIDERS: PCP Internal Medicine | DX: I25.5 Ischemic cardiomyopathy (principal); R07.9 Chest pain, unspecified | CPT/HCPCS: 78452; 93016; 93018 ==

== ENCOUNTER → 2024-11-28 10:30 | Outpatient (BNV) | payer MEDICARE, SELFPAY | PROVIDERS: PCP Internal Medicine; Referring Provider Internal Medicine; Visit Provider Internal Medicine | DX: D72.819 Decreased white blood cell count, unspecified (principal) | CPT/HCPCS: 99204; G2211 ==

== ENCOUNTER 2024-12-08 13:21 | Outpatient (AMB) | payer MEDICARE, SELFPAY ==
--- OUTSIDE RECORDS SUMMARY | 2024-08-03 05:30 | XMS_ITS ---
Author Organization [facility] Address [address] [place] [address] Care Team Providers Care Art Critic Name Role Phone Jina (RETIRED) Yan MANCILLA Primary Care Provide Solo Gómez Unavailable [phone] REASON FOR VISIT screening,hx polyps Encounters Encounter Location Date Provider [place] [facility] [place] [address] [place] [phone] 08/03/2024 Solo Adams Plan Of Treatment Next Appt Details Provider Name:Solo Adams , 01/09/2025 01:10:00 PM, [address] [place] [address], [phone], Progress Notes * PONCHO MILLERADOB: 2 (74 yo F)Acc No.[id number]:08/03/2024 COLON WITH MAC Patient: CHUY PENALOZA Provider: Vj Adams MD :1950 A ge:73 Y S ex:Female Date:08/03/2024 Address:[address] [facility] [id number] Pcp:Yan Muro (RETIRED )MD Subjective: * Chief [...] 08/03/2024 Generated for Printi ng/Faxing/eTransmitting on: 0 12/08/2024 02:13 PM EDT
[2024-12-08 13:28] VITALS: BMI 23.3
--- NOTE | 2024-12-08 13:28 | A.OFFVIS_ITS ---
Vital Signs 12/08/24 13:28 Height 5 ft 5 in Weight 140 lb BMI 23.3 Intake Visit Reasons: [employer]/PCP referral for VV Intake Note: [employer]/ Left LE large rope like VV. States painful to touch and started a few years ago. Has large painful VV in Left Thigh and cluster on calf. Accompanied by: Self / Same As Patient Allergies Seasonal Allergies Allergy (Unknown, Verified 12/08/24 13:31) Unknown HPI HPI [employer]/PCP referral for VV: Details: Very pleasant 74-year-old female patient presents for painful varicose veins. Complaints include pain over varicosities, swelling of lower extremities, cramping, fatigue, and heaviness of the lower extremities. It has been affecting there daily activities including walking. It is noted more so in left leg. Patient denies any previous venous surgery or injections. Patient denies any history of DVT/ PE. Patient denies any history of phlebitis. Trial of compression includes - [id number] They now present for vascular evaluation regarding their varicose veins. PFS Medical History Seasonal allergies Hypothyroidism Hx of hypoglycemia Hx of supraventricular tachycardia Hiatal hernia GERD (gastroesophageal reflux disease) IBS (irritable bowel syndrome) Cataract Arthritis Graves disease Surgical History Hx of bilateral cataract extraction (~2018) Hx of hemorrhoidectomy (~2019) S/P DIAZ (total abdominal hysterectomy) History of esophagogastroduodenoscopy (EGD) (~2014) Hx of colonoscopy (~2019) History of bilateral oophorectomy H/O eye surgery Hx of tonsillectomy H/O hysterectomy for benign disease Family History Sister Uterine cancer Mother No problems noted. Father No problems noted. Social History Household Members: Spouse Housing: House Patient Tobacco Use Status: Never used Tobacco Tobacco use type: Cigarette e-Cigarette/Vaping Use: Never Used service: No Current occupational status: employed Cognitive needs: No Hearing needs: No Vision needs: Yes (reading glasses) Review of Systems Const Reports as per HPI ENT Reports no additional complaints Card Denies chest pain, Denies chest pain at rest and Denies chest pain with activity Resp Denies chest congestion and Denies cough GI Reports no additional complaints Musc Details: pain over varicosities, aching of lower extremities, swelling, cramping, heaviness and tiredness, itching Denies abnormal gait Skin/Breast Reports pruritus and Denies wounds Neuro Reports no additional complaints and Denies abnormal gait Psych Denies no additional complaints Physical Exam Vital Signs: BMI result Body Mass Index 23.3 Const General: cooperative, healthy appearing and comfortable Orientation/consciousness: oriented to person, oriented to place and oriented to time Neck Carotids: no bruits Chest Chest palpation & inspection: normal inspection of the chest and normal palpation of entire chest wall Resp Effort & Inspection: normal respiratory effort and able to speak in complete sentences Cardio Rate: regular rate Heart sounds: S1 normal heart sound present and S2 normal heart sound present Peripheral pulses: Peripheral pulses 2+ throughout GI Inspection: Yes normal to inspection Skin Other: +2 edema, large rope-like varicosities greater than 4 mm left thigh cluster CEAP Classification C4 - skin color changes Ep - Etiology Primary As - superficial veins P - reflux General skin exam: dry skin Neuro General: oriented to person, oriented to place and oriented to time Extrem Right lower extremity: full ROM, normal capillary refill and edema Left lower extremity: full ROM, normal capillary refill and edema Psych Mental Status: mental status grossly normal Assessment & Plan Assessment & Plan (1) Varicose veins of left lower extremity with inflammation: Code(s): I83.12 - Varicose veins of left lower extremity with inflammation Category: Medical Plan: In short, the patient has evidence of venous insufficiency. I have discussed the pathophysiology with the patient. In addition I have provided informational material regarding venous disease to the patient. We have discussed conservative measures including compression, elevation, and exercise. I have also provided a handout regarding appropriate use of compression stockings and where to purchase good compression stockings as well. I have taken the liberty of ordering venous insufficiency testing with the patient. They will follow up with me after testing. The patient had an opportunity to ask questions regarding the treatment plan. All questions were answered. Imaging studies, laboratory studies and physical exam results were discussed and reviewed in detail. No major barriers to understanding were identified. The patient expressed understanding and agreement with the above treatment plan. The patient is aware they should contact our office by phone for worsening of the current condition or the appearance of new symptoms. Thank you for allowing me to participate in the vascular care of this patient. If you have any questions or concerns regarding the treatment for the above condition please do not hesitate to contact me. The office telephone contact is [phone]. This note is constructed using voice recognition software. While every effo rt has been made to ensure accuracy, residence life director errors may have been included. Thank you for allowing me to participate in the care of your patient. Yours sincerely, Tyrone Ambrosio MD, FACS, R.P.V.I. Orders: Orders US venous duplex LE BI Today I83.12 - Varicose veins of left lower extremity with inflammation Coding Level of Care Code New Pt Level 4 (38249) Complex EM visit Add On G2211 Diagnoses Varicose veins of left lower extremity with inflammation I83.12
== END 2024-12-08 14:01 | disposition home or self-care (01) ==
LOC: HO.HVS 13:22
PROVIDERS: PCP Internal Medicine; Visit Provider Surgery Vascular Surgery
DX: I83.12 Varicose veins of left lower extremity with inflammation (principal)
CPT/HCPCS: 99204; G2211

== ENCOUNTER → 2024-12-08 13:21 | Outpatient (BNVA) | payer MEDICARE, SELFPAY | PROVIDERS: PCP Internal Medicine; Visit Provider Surgery Vascular Surgery | DX: I83.12 Varicose veins of left lower extremity with inflammation (principal); I83.812 Varicose veins of left lower extremity with pain | CPT/HCPCS: 99202 ==

== ENCOUNTER 2024-12-27 12:38 | Outpatient (AMB) | payer MEDICARE, SELFPAY ==
--- NOTE | 2024-12-27 12:42 | A.OFFVIS_ITS ---
Vital Signs 12/27/24 12:43 Height 5 ft 5 in Weight 139 lb 15.896 oz BMI 23.3 BP 170/96 H Blood Pressure Location Lt brachial Position Sitting Pulse 68 Pulse Source Pulse Oximeter Pulse Oximetry (%) 98 Oxygen Delivery Method Room Air Intake Visit Reasons: 3 Months Intake Note: Patient presents for osteoarthritis follow up. Accompanied by: Self / Same As Patient Allergies Seasonal Allergies Allergy (Unknown, Verified 12/08/24 13:31) Unknown Medication List - Last Reconciled 12/27/24 by Frank Russo MD aspirin 81 mg PO DAILY calcium carbonate 500 mg PO DAILY diclofenac sodium 1% 4 grams topical QID fexofenadine (Marlen Allergy) 180 mg PO DAILY ibuprofen 800 mg PO Q8H lactobacillus combination no.4 (Probiotic) 3,000 mmu cells PO DAILY levothyroxine 25 mcg PO DAILY metoprolol tartrate 12.5 mg (1/2 x 25 mg) PO BID ooenjsgg-tza-KG-lycopen-lutein 0.4 mg-300 mcg- 250 mcg (Centrum Silver) 1 tab PO DAILY HPI HPI 3 Months: Details: Pain returned after 2 months of cortisone injection. Pain radiates from right shoulder to elbow. She has a sharp pain. Pain when she sleeps. Avoiding tylenol due to transaminits. Takes motrin 400mg BID or TID with relief. Trigger finger did not improve with splinting and OT exercises. She has had back pain for a very long time. It is localized to right lower back. Certain movements will aggravate it. She applies heat daily with benefit. In the past she has had muscle relaxer cyclobenzaprine with benefit prescribed by PCP. PFSH Medical History Seasonal allergies Hypothyroidism Hx of hypoglycemia Hx of supraventricular tachycardia Hiatal hernia GERD (gastroesophageal reflux disease) IBS (irritable bowel syndrome) Cataract Arthritis Graves disease Surgical History Hx of bilateral cataract extraction (~2017) Hx of hemorrhoidectomy (~2018) S/P DIAZ (total abdominal hysterectomy) History of esophagogastroduodenoscopy (EGD) (~2014) Hx of colonoscopy (~2018) History of bilateral oophorectomy H/O eye surgery Hx of tonsillectomy H/O hysterectomy for benign disease Family History Sister Uterine cancer Mother No problems noted. Father No problems noted. Social History Household Members: Spouse Housing: House Patient Tobacco Use Status: Never used Tobacco Tobacco use type: Cigarette e-Cigarette/Vaping Use: Never Used service: No Current occupational status: employed Cognitive needs: No Hearing needs: No Vision needs: Yes (reading glasses) Physical Exam Vital Signs: Last Vital Signs Pulse 68 12/27/24 12:43 BP 170/96 H 12/27/24 12:43 Pulse Ox 98 12/27/24 12:43 Oxygen Delivery Method Room Air 12/27/24 12:43 BMI result Body Mass Index 23.3 Const Other: General: Comfortable Skin: No lesions seen MSK: Localized tenderness to the right subacromial region and anteriorly. She has pain in bilateral shoulders with active range of motion. Right shoulder abduction 160 degrees. Left shoulder range of motion is full. No triggering observed. No palmar nodule palpated. She has localized tenderness to right paraspinal muscles lower lumbar spine. No spinous process tenderness. Good lumbar flexion. Office Procedures AMB Joint Injection/Aspiration Joint Injection/Aspiration Details: Trigger finger left 3rd Prep: site was prepped using aseptic technique Injected: 10 mg of, Kenalog, with 0.25 mL of and 1% plain lidocaine Procedure: Informed verbal consent was obtained. The patient tolerated the procedure well. Postprocedure protocol was discussed with patient. Coding - Small Joint Procedure code (CPT) selection complete AMB Joint Injection/Aspiration Joint Injection/Aspiration Details: Right shoulder joint subacromial reason Prep: site was prepped using aseptic technique Injected: 40 mg of, Kenalog, with 1 mL of and 1% plain lidocaine Procedure: Informed verbal consent was obtained. The patient tolerated the procedure well. Postprocedure protocol was discussed with patient. Coding - Large joint Procedure code (CPT) selection complete Office Meds lidocaine (PF) 10 mg/mL (1 %) injection solution Performing Provider: Frank Russo MD [place] [facility] Administered by: Elvi Nieves RN on 12/27/24 13:19 Dose Route Admin Location Dispensed Lot Number Expiration Date [facility] Global Ceo 2.5 mg Infiltration 2 mL [id number] 07/25/26 65342-477-96 [employer] Total Dispensed Waste 2 mL 87.5 % Kenalog 40 mg/mL suspension for injection Performing Provider: Frank Russo MD Performing Location[place] [facility] Administered by: Elvi Nieves RN on 12/27/24 13:19 Dose Route Admin Location Dispensed Lot Number Expiration Date [facility] [employer] Ceo 10 mg Tendon Sheath Inj. 1 mL [id number] 09/24/26 [address] -1 [employer] Total Dispensed Waste 1 mL 75 % lidocaine (PF) 10 mg/mL (1 %) injection solution Performing Provider: Frank Rusos MD Performing Location: [facility] Administered by: Elvi Nieves RN on 12/27/24 13:19 Dose Route Admin Location Dispensed Lot Number Expiration Date [facility] [employer] Ceo 10 mg Infiltration 2 mL [id number] 07/25/26 57718-924-59 [employer]REW [employer] Total Dispensed Waste 2 mL 50 % Kenalog 40 mg/mL suspension for injection Performing Provider: Frank Russo MD Performing Location: [facility] Administered by: Elvi Nieves RN on 12/27/24 13:19 Dose Route Admin Location Dispensed Lot Number Expiration Date [facility] Global Ceo 40 mg intrabursal 1 mL [id number] 09/24/26 [address]-2 [employer] Total Dispensed Waste 1 mL 0 % Assessment & Plan Assessment & Plan (1) Subacromial impingement of right shoulder: Comment: Partial benefit with cortisone injection to subacromial region 08/2024. Failed conservative management with PT exercises, ibuprofen, and diclofenac gel. She did not tolerate meloxicam due to exacerbation of GERD. We discussed next steps with retrial of cortisone injection, restarting PT to improve ROM and further workup of radicular symptoms. Patient agrees with plan. Code(s): M75.41 - Impingement syndrome of right shoulder Category: Medical Plan: Patient received right subacromial cortisone injection Return to clinic in 3 months (2) Left trigger finger: Comment: left third finger. Failed splinting and OT. Code(s): M65.30 - Trigger finger, unspecified finger Category: Medical Qualifiers: Trigger finger location: middle finger Qualified Code(s): M65.332 - Trigger finger, left middle finger Plan: Patient recieved cortisone injection to treat trigger finger Return to clinic in 3 months (3) Back pain with right-sided radiculopathy: Comment: One-month onset of radiculopathy involving right upper extremity. Unclear etiology. We discussed workup and conservative management Code(s): M54.10 - Radiculopathy, site unspecified Category: Medical Plan: C-spine x-ray ordered to evaluate for spinal pathology Right upper extremity EMG PT ordered Return to clinic in 3 months (4) Low back pain: Comment: Due to myofascial strain from paraspinal muscles. Discussed conservative management. Code(s): M54.50 - Low back pain, unspecified Category: Medical Qualifiers: Chronicity: chronic Back pain laterality: right Sciatica presence: without sciatica Qualified Code(s): M54.50 - Low back pain, unspecified; G89.29 - Other chronic pain Plan: Continue to apply heat to back Try lidocaine patches PT ordered for myofascial release, TENs unit, back strengthening She will use cyclobenzaprine 5 mg q.h.s. prn back pain. We discussed side effects of long-term muscle relaxer use including dependence. She will try to use it only as needed when pain is uncontrolled Avoid oral NSAIDs and Tylenol in setting of mild transaminitis Return to clinic 3 months Orders: Orders NE nerve conduction velocity Today M54.10 - Radiculopathy, site unspecified PT Evaluation and Treatment Today M54.10 - Radiculopathy, site unspecified, M54.50 - Low back pain, unspecified, M75.41 - Impingement syndrome of right shoulder AMB Joint Injection/Aspiration Today M75.41 - Impingement syndrome of right shoulder AMB Joint Injection/Aspiration Today M65.332 - Trigger finger, left middle finger NE electromyogram (EMG) Today M54.10 - Radiculopathy, site unspecified XR cervical spine 3V Today M54.10 - Radiculopathy, site unspecified Medications: New cyclobenzaprine 5 mg PO BEDTIME PRN 30 tabs 1RF muscle spasm Coding Level of Care Code Est Pt Level 4 (84025) Complex EM visit Add On G2211 Diagnoses Subacromial impingement of right shoulder M75.41 Trigger middle finger of left hand M65.332 Trigger finger location: middle finger Back pain with right-sided radiculopathy M54.10 Chronic right-sided low back pain without sciatica M54.50; G89.29 Chronicity: chronic Back pain laterality: right Sciatica presence: without sciatica CPT Codes Coding - 24609 Large joint: 20199 - Large joint ([id number]) Coding - 30435 - Small joint: 14580 - Small Joint ([id number])
[2024-12-27 12:43] VITALS: BP 170/96; PULSE 68; O2SAT 98; BMI 23.3
--- OUTSIDE RECORDS SUMMARY | 2024-12-27 13:52 | XMS_ITS | Clinical Summary ---
Author Organization [facility] Address [facility] [address] [address] Phone Care Team Providers Care Sap Administrator Name Role Phone Yan Muro MD Primary [...] Acid reflux Headache 08/26/2012 Overview (06/17/2014): Headache Social History Tobacco Use Types Packs/Day Years [...] 11:40 AM EDT Office Visit [facility] [address] [place] [address] Makayla Mckee MD [address] [place] [id number] [email or web address] Health Maintenance Due Date Last Done Comments Adult Td,Tdap Booster 1950 LIPID PANEL 1950 DEPRESSION SCREENING 1963 HEPATITIS C SCREENING 12/04/1969 MAMMOGRAM 1991 COLOGUARD 12/04/1996 COLONOSCOPY 12/04/1996 COLORECTAL CANCER SCREENING 12/04/1996 FIT TEST 12/04/1996 FOBT 12/04/1996 SIGMOIDOSCOPY 12/04/1996 VIRTUAL COLONOSCOPY 12/04/1996 PNEUMOCOCCAL VACCINES (50+ years) (1 of 1 - PCV) 12/04/2001 OSTEOPOROSIS SCREENING INITIAL (ONE-TIME) 12/04/2016 ZOSTER VACCINES (2 of 3) 03/09/2017 01/12/2017 INFLUENZA VACCINE (#1) 2024 01/19/2020, 2016 COVID-19 VACCINE (2 - season) 2024 07/10/2020 TSH LEVEL 07/29/2025 07/29/2024, 08/04/2023, 11/16/2023, Additional history exists RSV VACCINE (1 [...] this topic Medical Devices Implanted Type Area Consulting Database Administrator Device Identifier Shelf Expiration Date Model / Serial / Lot Tutoplast Procssd-Pericar d 1.0cm X 1.0cm - [id number] Implanted:Qty: 1 on 09/14/2019 by Jose Healy MD at [place] [facility] Graft Right: [employer] 09/14/2019 / / [id number] Tutoplast Procssd-Pericar d 1.0cm X 1.0cm - [id number] Implanted:Qty: 1 on 01/08/2016 by Jose Healy MD at [place] [facility] Left: [employer] 03/26/2020 / / [id number] Procedures Procedure Name Priority Date/Time Associated Diagnosis Comments TSH WITH REFLEX Routine 07/29/2024 12:32 PM EDT Postablative hypothyroidism from Last 3 Months or Most Recently Relevant to Health Maintenance Results * TSH with reflex (07/29/2024 12:32 PM EDT) TSH 2.04 0.27 - 4.20 uIU/mL [facility] Blood 07/29/2024 12:3 2 PM EDT 07/29/2024 12:37 PM EDT us Makayla Mckee MD LAB BLOOD ORDERABLES F inal Result [address] [address] from Last 3 Months or Most Recently Relevant to Health Maintenance Insurance [employer] MEDEX SUPPLEMENT MEDICARE PART A & B [employer] MED[employer] SUPPLEMENT MEDICARE PART A & B [employer] MED[employer] SUPPLEMENT MEDICARE PART A & B [employer] MEDEX SUPPLEMENT MEDICARE PART A & B [employer] MEDEX SUPPLEMENT MEDICARE PART A & B [facility] MEDEX SUPPLEMENT MEDICARE PART A & B Advance Directives For more information, please contact: [phone] (9AM - 5PM Teresa/[facility], Thursday-Thursday) Documents on File Type Date Recorded Patient Retail Sales Associate Bilingual Expl anation Healthcare Proxy 10/10/2015 2:15 PM Care Teams Sap Administrator Relationship Specialty Start Date End Date Yan Muro MD [address] [place] [address] [place] [address] PCP - General Internal Medicine 06/12/23 Additional Source Comments The information contained in this document represents components of the legal health record. It is not the complete legal health record.[facility]
== END 2024-12-27 13:29 | disposition home or self-care (01) ==
LOC: HO.RHES 12:39
PROVIDERS: PCP Internal Medicine; Visit Provider Internal Medicine Rheumatology
DX: M75.41 Impingement syndrome of right shoulder (principal); M65.332 Trigger finger, left middle finger; M54.10 Radiculopathy, site unspecified; M54.50 Low back pain, unspecified; G89.29 Other chronic pain
CPT/HCPCS: 20600; 20610; 99214

== ENCOUNTER → 2024-12-27 12:38 | Outpatient (BNVA) | payer MEDICARE, SELFPAY | PROVIDERS: PCP Internal Medicine; Visit Provider Internal Medicine Rheumatology | DX: M75.41 Impingement syndrome of right shoulder (principal); M65.332 Trigger finger, left middle finger; M54.10 Radiculopathy, site unspecified; M54.50 Low back pain, unspecified; G89.29 Other chronic pain | CPT/HCPCS: 20600; 20610; 99212; J2003; J3300 ==

== ENCOUNTER → 2024-12-30 09:47 | Outpatient (REF) | payer MEDICARE, SELFPAY ==
--- OUTSIDE RECORDS SUMMARY | 2024-08-03 05:30 | XMS_ITS ---
Author Organization [facility] Address [address] [place] [phone] Care Team Providers Care Fountain Brush Assembler Name Role Phone Jina (RETIRED) Yan MANCILLA Primary Care Provide Solo Gómez Unavailable [phone] REASON FOR VISIT screening,hx polyps Encounters Encounter Location Date Provider Diagnosis [facility] [place] [address] [place] [phone] 08/03/2024 Solo Adams Plan Of Treatment Next Appt Details Provider Name:Solo Adams , 01/09/2025 01:10:00 PM, [address] [place] [address], [phone], Progress Notes * PONCHO MILLERADOB: 2 (74 yo F)Acc No.[id number]:08/03/2024 COLON WITH MAC Patient: CHUY PENALOZA Provider: Vj Adams MD :1950 A ge:73 Y S ex:Female Date:08/03/2024 Address:[address] [facility] [id number] Pcp:Yan Muro (RETIRED )MD Subjective: * Chief [...] 08/03/2024 Generated for Printi ng/Fawilliamsg/eTransmitting on: 0 12/30/2024 10:33 AM EDT
--- OUTSIDE RECORDS SUMMARY | 2024-10-31 05:20 | XMS_ITS ---
Author Organization [facility] Address [address] [place] [address] Care Team Providers Care Restaurant Area Director Name Role Phone Jina (RETIRED) Yan MANCILLA Primary Care Provide Solo Gómez [phone] REASON FOR VISIT screening,hx polyps Encounters Encounter Location Date Provider Diagnosis [facility] [place] [address] [place] [phone] 10/31/2024 Solo Adams Plan Of Treatment Next Appt Details Provider Name:Solo Adams , 01/09/2025 01:10:00 PM, [address] [place] [address], [phone], Progress Notes * PONCHO MILLERADOB: 2 (74 yo F)Acc No.[id number]:10/31/2024 COLON WITH MAC Patient: CHUY PENALOZA Provider: Vj Adams MD :1950 A ge:73 Y S ex:Female Date:10/31/2024 Address:[address] [facility] [place] Pcp:Yan Muro (RETIRED )MD Subjective: * Chief [...] 10/31/2024 Generated for Printi ng/Fawilliamsg/eTransmitting on: 0 12/30/2024 10:33 AM EDT
--- NOTE | 2024-12-30 09:50 | CA_ITS ---
Transthoracic Echocardiogram Patient (Last, First, Middle): Joanie Franco, Gender: F Date of : 1950 Age: 74 Procedure Date: 12/30/2024 Procedure Type: Transthoracic Echocardiogram Location: OP Height: 165.1 cm Weight: 61.24 kg BSA: 1.67 m2 Heart Rate: 62 bpm BP: 140 / 80 mmHg Radiation Control Technician: MARYSOL Referring MD: Carly Vizcaino MD Janitor Head: Miguel Serrano MD Symptoms: R07.9 - Chest pain, unspecified Study Quality: Adequate ECG Rhythm: Sinus Conclusions: - 1. Normal LV ejection fraction 55-60% with impaired relaxation filling pattern 2. Cardiac valvular Dopplers within normal limits with no clear evidence of mitral valve prolapse 3. No gross pericardial effusion Findings Left Ventricle Normal left ventricular size, thickness, and systolic function. The visually estimated ejection fraction is between 55-60%. Spectral Doppler is indicative of an impaired relaxation filling pattern. E/E prime ratio is between 8 and 15 consistent with indeterminate filling pressures. Right Ventricle Normal right ventricular cavity size and systolic function. Atria The left atrium is normal in size. Interatrial shunt cannot be excluded. The right atrium is normal in size. Aortic Valve Normal aortic valve structure and function. There is no aortic valve stenosis. There is no aortic valve regurgitation. Mitral Valve There is mild anterior mitral leaflet thickening. There is no mitral valve prolapse. There is trace mitral valve regurgitation. There is no mitral valve stenosis. Pulmonic Valve The pulmonic valve was not well visualized. Tricuspid Valve Normal tricuspid valve structure. Tricuspid regurgitation envelope is inadequate for calculation of right ventricular systolic pressure. Normal right atrial pressure. Great Vessels All visible segments of the aorta are normal in size. The pulmonary artery was not well visualized. There is no dilatation of the ascending aorta measuring 2.80 cm. Venous The inferior vena cava is normal in size and collapses greater than 50% with inspiration. Pericardium/Pleural There is no evidence of pericardial effusion. Prior Study Comparison No prior study available for comparison. Measurements 2D Linear Measurements IVSd: 0.79 0.6-0.9/0.6-1.0 cm LVIDd: 4.45 3.9-5.3/4.2-5.9 cm LVIDd Index: 2.66 2.4-3.2/2.2-3.1 cm/m2 LVIDs: 3.32 2.0-3.6 cm LVPWd: 0.63 0.7-1.1 cm LA Diam: 3.10 2.7-3.8/3.0-4.0 cm LAIDs Index: 1.86 1.5-2.3 cm/m2 LV Mass: 118.49 67-162/88-224 g LV Mass Index: 70.95 43-95/49-115 g/m2 LVOT Diam: 1.90 3.0+(-)1.3 cm 2D Systolic Function EF 4C: 53.70 >55% EF 2C: 65.20 >55% EF BiP: 59.00 >55% Mitral Valve MV Pk E: 0.50 MV PK A: 0.70 MV Decel Time: 217.00 E/A: 0.70 E'Lateral: 5.77 E'Medial: 4.13 E/E' Med: 12.00 E/E' Lat: 8.60 PHT: 64.00 MVA PHT: 3.44 Decel Nye: 2.29 Aortic Valve AoV Pk Jesse: 0.98 AoV Pk Grad: 4.00 ALBA: 2.76 LVOT LVOT Pk Jesse: 1.01 LVOT Mn Jesse: 0.64 LVOT VTI: 0.18 LVOT Pk Grad: 4.00 LVOT Mn Grad: 2.00 LVOT Diam: 1.90 LVOT Area: 2.84 Diastolic Function MV Pk E: 0.50 MV Pk A: 0.70 E/A: 0.70 E'Medial: 4.13 E/E' Med: 12.00 E' Laterial: 5.77 E/E' Lat: 8.60 Right Ventricle TAPSE (mm): 18.80 Tricuspid Valve RA Press: 3.00 Great Vessels Aorta Sinus of Valsalva: 2.90 2.0-3.5 cm Ao Asc: 2.80 2.1-3.4 cm Pulmonary Valve PV Pk Jesse: 0.71 Peak PV Grad: 2.00 Updated in Other Vendor System with Status of Final Miguel Serrano MD electronically signed on 12/30/2024 1:17:26 PM with status of Final
--- OUTSIDE RECORDS SUMMARY | 2024-12-30 10:33 | XMS_ITS | Patient Health Record ---
Author Organization [facility] Address [address] [place] [address] Care Team Providers Care Manager Process Improvement Name Role Phone Jina (RETIRED) Yan MANCILLA Primary Care Provide r Unavailable Solo Adams Unavailable [phone] Allergies No Known Allergies Reason For Referral [...] Status Risk Notes Problem Irritable bowel syndrome (08052539) Irritable bowel syndrome (K58.9) Active confirmed Problem 179639597 Encounter for screening for malignant neoplasm of colon (Z12.11) Active confirmed Problem Flatulence, eructation and gas pain (932010434) Bloating (R14.0) Active confirmed Problem Constipation (88037918) Constipation (K59.00) Active confirmed Problem 531109666 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 Problem 98907369 Polyp of colon (K63.5) Active confirmed Problem 29110421 Hiatal hernia (K44.9) Active confirmed Problem 001116664 Hx of adenomatou s colonic polyps (Z86.010) Active confirmed Problem 990259712 Gastroesophageal reflux disease, unspecified whether esophagitis present (K21.9) Active confirmed Vital Signs Temperature 97.5 degrees Fahrenheit 04/26/2024 Blood pressure diastolic 00 mm Hg 04/26/2024 Height 64.5 in 04/26/2024 Blood pressure systolic 000 mm Hg 04/26/2024 Weight 142 lbs 04/26/2024 BMI 24.00 kg/m2 04/26/2024 Encounters Encounter Location Date Provider Diagnosis [facility] [address] [place] [phone] 04/26/2024 Solo Adams Irritable bowel syndrome K58.9 ; Hx of adenomatous colonic polyps Z86.010 and Encounter for screening for malignant neoplasm of colon Z12.11 [facility] [address] [place] [phone] 08/01/2024 Solo Angie [facility] [address] [place] [phone] 10/25/2024 Solo Adams Assessments Encounter Date Diagnosis (ICD [...] Provider Name:Solo Adams , 01/09/2025 01:10:00 PM, [address] [place] [address] , [place], [place], [id number], Insurance Providers Payer Name Payer Address Payer Phone Subscriber Number Group Number Insured Name Patient Relationship to Insured Coverage Start Date Coverage End Date MEDICARE OF [place] [address] [place] [id number] CHUY MILLER Self - patient is the insured MEDEX ATTN CLAIMS [address] [place] [address] [id number] CHUY MILLER Self - patient is the [...] Kearney's mucosa Graves' disease SVT-on metoprolol Denies [place],DM,CVA,Lung disease,renal dise ase Normal duodenal biopsies in [...]
--- OUTSIDE RECORDS SUMMARY | 2024-12-30 10:33 | XMS_ITS | Clinical Summary ---
Author Organization [facility] Address [facility] [address] [address] Phone Care Team Providers Care Scallop Cutter Name Role Phone Yan Muro MD Primary [...] AM EDT Office Visit [facility] [address] [place] [address] Makayla Mckee MD [address] [place] [address] [email or web address] Health Maintenance Due Date Last Done Comments [...] this topic Medical Devices Implanted Type Area Mortgage Advisor Device Identifier Shelf Expiration Date Model / Serial / Lot Tutoplast Procssd-Pericar d 1.0cm X 1.0cm - [id number] Implanted:Qty: 1 on 09/14/2019 by Jose Healy MD at [facility] Graft Right: [employer] 09/14/2019 / / [id number] Tutoplast Procssd-Pericar d 1.0cm X 1.0cm - [id number] Implanted:Qty: 1 on 01/08/2016 by Jose eHaly MD at [facility] Left: [employer] 03/26/2020 / / [id number] Procedures Procedure Name Priority Date/Time Associated Diagnosis Comments TSH WITH REFLEX Routine 07/29/2024 12:32 PM EDT Postablative hypothyroidism from Last 3 Months or Most Recently Relevant to Health Maintenance Results * TSH with reflex (07/29/2024 12:32 PM EDT) TSH 2.04 0.27 - 4.20 uIU/mL [facility] Blood 07/29/2024 12:3 2 PM EDT 07/29/2024 12:37 PM EDT us Makayla Mckee MD LAB BLOOD ORDERABLES F inal Result [address] [address] from Last 3 Months or Most Recently Relevant to Health Maintenance Insurance [employer] MEDEX SUPPLEMENT MEDICARE PART A & B [employer] MEDEX SUPPLEMENT MEDICARE PART A & B [employer] MEDEX SUPPLEMENT MEDICARE PART A & B [employer] MEDEX SUPPLEMENT MEDICARE PART A & B [employer] MEDEX SUPPLEMENT MEDICARE PART A & B [facility] MEDEX SUPPLEMENT MEDICARE PART A & B Advance Directives For more information, please contact: [phone] (9AM - 5PM Teresa/[facility], Thursday-Thursday) Documents on File Type Date Recorded Patient Hand Stamper Expl anation Healthcare Proxy 10/10/2015 2:15 PM Care Teams Scallop Cutter Relationship Specialty Start Date End Date Yan Muro MD [address] [place] [address] [place] [address] PCP - General Internal Medicine 06/12/23 Additional Source Comments The information contained in this document represents components of the legal health record. It is not the complete legal health record.[facility]
== END ==
LOC: HO.CARD 09:47
PROVIDERS: PCP Internal Medicine; Visit Provider Internal Medicine
DX: R07.9 Chest pain, unspecified (principal); Z86.79 Personal history of other diseases of the circulatory system
CPT/HCPCS: 93225; 93306

== ENCOUNTER → 2024-12-30 09:50 | Outpatient (BNV) | payer MEDICARE, SELFPAY | PROVIDERS: PCP Internal Medicine; Visit Provider Internal Medicine Cardiovascular Disease | DX: I34.89 Other nonrheumatic mitral valve disorders (principal) | CPT/HCPCS: 93306 ==

== ENCOUNTER 2025-01-02 11:29 | Outpatient (AMB) | payer MEDICARE, SELFPAY ==
--- OUTSIDE RECORDS SUMMARY | 2024-08-03 05:30 | XMS_ITS ---
Author Organization [facility] Address [address] [place] [phone] Care Team Providers Care Button Puncher Name Role Phone Jina (RETIRED) Yan MANCILLA Primary Care Provide Solo Gómez [phone] REASON FOR VISIT screening,hx polyps Encounters Encounter Location Date Provider Diagnosis [facility] [address] [place] [phone] 08/03/2024 Solo Adams Plan Of Treatment Next Appt Details Provider Name:Solo Adams , 01/09/2025 01:10:00 PM, [address] [place] [address], [phone], Progress Notes * PONCHO MILLERADOB: 2 (74 yo F)Acc No.[id number]:08/03/2024 COLON WITH MAC Patient: CHUY PENALOZA Provider: Vj Adams MD :1950 A ge:73 Y S ex:Female Date:08/03/2024 Address:[address] [facility] [place] [place] Pcp:Yan Muro (RETIRED )MD Subjective: * Chief [...] MD Date: 0 08/03/2024 Generated for Printi ng/Fawilliamsg/eTransmitting on: 0 01/02/2025 02:10 PM EDT
--- OUTSIDE RECORDS SUMMARY | 2024-10-31 05:20 | XMS_ITS ---
Author Organization [facility] Address [address] [place] [address] Care Team Providers Care Receiving Associate Store Name Role Phone Jina (RETIRED) Yan MANCILLA Primary Care Provide Solo Gómez [phone] REASON FOR VISIT screening,hx polyps Encounters Encounter Location Date Provider Diagnosis [facility] [place] [address] [place] [phone] 10/31/2024 Solo Adams Plan Of Treatment Next Appt Details Provider Name:Solo Adams , 01/09/2025 01:10:00 PM, [address] [place] [address], [phone], Progress Notes * PONCHO MILLERADOB: 2 (74 yo F)Acc No.[id number]:10/31/2024 COLON WITH MAC Patient: CHUY PENALOZA Provider: Vj Adams MD :1950 A ge:73 Y S ex:Female Date:10/31/2024 Address:[address] [facility] [place] Pcp:Yan Muro (RETIRED )MD Subjective: * Chief [...] Adams MD Date: 0 10/31/2024 Generated for Printi ng/Fawilliamsg/eTransmitting on: 0 01/02/2025 02:10 PM EDT
--- OUTSIDE RECORDS SUMMARY | 2025-01-02 14:11 | XMS_ITS | Clinical Summary ---
Author Organization [facility] Address [facility] [address] [address] Phone Care Team Providers Care Door Opener Name Role Phone Yan Muro MD Primary [...] AM EDT Office Visit [facility] [address] [address] Makayla Mckee MD [address] [place] [phone] [email or web address] Health Maintenance Due Date Last Done Comments [...] this topic Medical Devices Implanted Type Area Student Ambassador Device Identifier Shelf Expiration Date Model / Serial / Lot Tutoplast Procssd-Pericar d 1.0cm X 1.0cm - [id number] Implanted:Qty: 1 on 09/14/2019 by Jose Healy MD at [facility] Graft Right: [employer] 09/14/2019 / / [id number] Tutoplast Procssd-Pericar d 1.0cm X 1.0cm - [id number] Implanted:Qty: 1 on 01/08/2016 by Jose Healy MD at [facility] Left: [employer] 03/26/2020 / / [id number] Procedures Procedure Name Priority Date/Time Associated Diagnosis Comments TSH WITH REFLEX Routine 07/29/2024 12:32 PM EDT Postablative hypothyroidism from Last 3 Months or Most Recently Relevant to Health Maintenance Results * TSH with reflex (07/29/2024 12:32 PM EDT) TSH 2.04 0.27 - 4.20 uIU/mL [facility] Blood 07/29/2024 12:3 2 PM EDT 07/29/2024 12:37 PM EDT us Makayla Mckee MD LAB BLOOD ORDERABLES F inal Result [address] [address] from Last 3 Months or Most Recently Relevant to Health Maintenance Insurance [employer] MEDEX SUPPLEMENT MEDICARE PART A & B [employer] MEDEX SUPPLEMENT MEDICARE PART A & B [employer] MEDEX SUPPLEMENT MEDICARE PART A & B [employer] MEDEX SUPPLEMENT MEDICARE PART A & B [employer] MEDEX SUPPLEMENT MEDICARE PART A & B [facility] MEDEX SUPPLEMENT MEDICARE PART A & B Advance Directives For more information, please contact: [phone] (9AM - 5PM Teresa/[facility], Thursday-Thursday) Documents on File Type Date Recorded Patient Clothing Supervisor Expl anation Healthcare Proxy 10/10/2015 2:15 PM Care Teams Door Opener Relationship Specialty Start Date End Date Yan Muro MD [address] [place] [address] [place] [address] PCP - General Internal Medicine 06/12/23 Additional Source Comments The information contained in this document represents components of the legal health record. It is not the complete legal health record.[facility]
--- OUTSIDE RECORDS SUMMARY | 2025-01-02 14:11 | XMS_ITS | Patient Health Record ---
Author Organization [facility] Address [address] [place] [address] Care Team Providers Care Dukey Rider Name Role Phone Jina (RETIRED) Yan MANCILLA Primary Care Provide r Unavailable Solo Adams Unavailable [phone] Allergies No Known Allergies Reason For Referral [...] Status Risk Notes Problem Irritable bowel syndrome (13343251) Irritable bowel syndrome (K58.9) Active confirmed Problem 320010610 Encounter for screening for malignant neoplasm of colon (Z12.11) Active confirmed Problem Flatulence, eructation and gas pain (605847090) Bloating (R14.0) Active confirmed Problem Constipation (83359161) Constipation (K59.00) Active confirmed Problem 609954319 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 Problem 48939191 Polyp of colon (K63.5) Active confirmed Problem 39240959 Hiatal hernia (K44.9) Active confirmed Problem 045372388 Hx of adenomatou s colonic polyps (Z86.010) Active confirmed Problem 564214585 Gastroesophageal reflux disease, unspecified whether esophagitis present (K21.9) Active confirmed Vital Signs Temperature 97.5 degrees Fahrenheit 04/26/2024 Blood pressure diastolic 00 mm Hg 04/26/2024 Height 64.5 in 04/26/2024 Blood pressure systolic 000 mm Hg 04/26/2024 Weight 142 lbs 04/26/2024 BMI 24.00 kg/m2 04/26/2024 Encounters Encounter Location Date Provider Diagnosis [facility] [address] [place] [phone] 04/26/2024 Solo Adams Irritable bowel syndrome K58.9 ; Hx of adenomatous colonic polyps Z86.010 and Encounter for screening for malignant neoplasm of colon Z12.11 [facility] [address] [place] [phone] 08/01/2024 Solo Angie [facility] [address] [place] [phone] 10/25/2024 Solo Adams Assessments Encounter Date Diagnosis [...] again for allowing me to participate in rCisto's care. I shall continue to keep you [...] COLONOSCOPY 04/26/2024 Next Appt Details Provider Name:Solo Admas , 01/09/2025 01:10:00 PM, [address] [place] [address] , [place], [place], [phone], Insurance Providers Payer Name Payer Address Payer Phone Subscriber Number Group Number Insured Name Patient Relationship to Insured Coverage Start Date Coverage End Date [place]ARE OF [place] [address] [place] [address] [id number] CHUY MILLER Self - patient is the insured MEDEX ATTN CLAIMS [address] [place] [address] [id number] CHUY MILLER Self - patient is the [...] Kearney's mucosa Graves' disease SVT-on metoprolol Denies [place],DM,CVA,Lung disease,renal dise ase Normal duodenal biopsies in [...]
== END 2025-01-02 11:31 | disposition home or self-care (01) ==
LOC: HO.HMGAL 11:29
PROVIDERS: PCP Internal Medicine; Visit Provider Registered Nurse Emergency
DX: J30.89 Other allergic rhinitis (principal)
CPT/HCPCS: 95117; 95165

== ENCOUNTER 2025-01-09 11:26 | Day surgery (SDC) | payer MEDICARE, SELFPAY ==
[2024-08-01 11:45] VITALS: BMI 24.0
--- NOTE | 2025-01-06 09:26 | HO.ANESPROP2 ---
Documented by User: Mita Epperson NP 01/06/25 12:17 HPI - Anesthesia Eval Consult details Narrative: 74yo F for Colonoscopy Episode of chest pain 10/2024 to [facility] ER with reassuring labs and EKG. Eval by pcp after discharge - echo and stress, but pending cardiology eval 02/2025. OK'd to proceed by pcp if pt asymptomatic. Pt deneis CP/SOB. Has rare episodes of SVT (chronic), anxious regarding colo. Instructed to ensure adequate hydration during prep to avoid increase in SVT PMFSH Active Problems Active Problems: All Active Problems Low back pain (Acute) Back pain with right-sided radiculopathy (Acute) Varicose veins of left lower extremity with inflammation (Acute) Leukopenia (Acute) Malaise (Acute) Pain due to varicose veins of both lower extremities (Acute) Chest pain (Acute) Palpitations (Acute) Hx of supraventricular tachycardia (Acute) Left trigger finger (Acute) Hyperlipidemia (Acute) Arthritis (Acute) Osteoarthritis of hands, bilateral (Acute) Subacromial impingement of right shoulder (Acute) Right shoulder pain (Acute) Hypothyroidism (Acute) Past Medical History Medical History Seasonal allergies Hypothyroidism Hx of hypoglycemia Hx of supraventricular tachycardia Hiatal hernia GERD (gastroesophageal reflux disease) IBS (irritable bowel syndrome) Cataract Arthritis Graves disease Family History Family History Sister Uterine cancer Mother No problems noted. Father No problems noted. Surgical History Surgical History Hx of bilateral cataract extraction (~2018) Hx of hemorrhoidectomy (~2018) S/P DIAZ (total abdominal hysterectomy) History of esophagogastroduodenoscopy (EGD) (~2014) Hx of colonoscopy (~2018) History of bilateral oophorectomy H/O eye surgery Hx of tonsillectomy H/O hysterectomy for benign disease Social History Social History Household Members: Spouse Housing: House Patient Tobacco Use Status: Never used Tobacco Tobacco use type: Cigarette e-Cigarette/Vaping Use: Never Used Use of substances other than those prescribed or required for medical reasons: No Advance Directives: No Advance Directives Information Provided: Yes service: No Current occupational status: employed Cognitive needs: No Hearing needs: No Vision needs: Yes (reading glasses) Meds Allergies Allergy/AdvReac Type Severity Reaction Status Date / Time Seasonal Allergies Allergy Unknown Unknown Verified 12/08/24 13:31 Home Medications ?Medication ?Instructions ?Recorded ?Confirmed ?Last Taken ?Type aspirin 81 mg tablet,delayed 81 mg PO DAILY 03/08/20 12/27/24 12/28/24 08:00 History release ibuprofen 800 mg tablet 800 mg PO Q8H 03/08/20 12/27/24 Unknown History levothyroxine 25 mcg tablet 25 mcg PO DAILY 03/08/20 12/27/24 Unknown History calcium carbonate 500 mg PO DAILY 05/12/24 12/27/24 Unknown History fexofenadine 180 mg tablet 180 mg PO DAILY 05/12/24 12/27/24 Unknown History (Marlen Allergy) lactobacillus combination no.4 3 3,000 mmu cells PO DAILY 05/12/24 12/27/24 Unknown History billion cell capsule (Probiotic) evpwoyrh-jjc-nkhxg acid 0.4 1 tab PO DAILY 05/12/24 12/27/24 Unknown History mg-lycopene 300 mcg-lutein 250 mcg tablet (Centrum Silver) metoprolol tartrate 25 mg tablet 25 mg PO BID 01/09/25 01/09/25 01/09/25 08:00 History Exam Height,Weight and Vital Signs: Height 5 ft 4.5 in Weight 64.41 kg Pertinent Lab Results Pertinent Lab Results: Laboratory Tests 11/28/24 11:48 WBC 7.3 Hgb 13.1 Hct 40.4 Plt Count 357 Sodium 142 Potassium 4.6 D Chloride 109 H Carbon Dioxide 27 BUN 17 H Creatinine 0.80 Narrative Narrative: EKG 10/2024 Ventricular Rate: 94 BPM Atrial Rate: 94 BPM P-R Interval: 190 ms QRS Duration: 80 ms Q-T Interval: 348 ms QTC Calculation(Bazett): 435 ms P [place]: 76 degrees R [place]: 51 degrees T [place]: 58 degrees Normal sinus rhythm Possible Left atrial enlargement Borderline ECG When compared with ECG of 07-Jul-2021 23:22, No significant change was found Confirmed by PILO MANCILLA, [facility] ([id number]) on 11/11/2024 7:51:09 AM NM cardiolite stress test 10/2024 Impression: 1. Myocardial perfusion imaging study shows equivocal small area of apical ischemia 2. Gated LVEF is 74% 3. Transient ischemic dilatation not present Nondiagnostic changes on EKG. ECHO 10/2024 Conclusions: - 1. Normal LV ejection fraction 55-60% with impaired relaxation filling pattern 2. Cardiac valvular Dopplers within normal limits with no clear evidence of mitral valve prolapse 3. No gross pericardial effusion Assessment and Plan Assessment Anesthesia Assessment: Chart Reviewed Documented by User: Alanna Berman MD 01/09/25 12:40 PMFSH Past Medical History Medical History Seasonal allergies Hypothyroidism Hx of hypoglycemia Hx of supraventricular tachycardia Hiatal hernia GERD (gastroesophageal reflux disease) IBS (irritable bowel syndrome) Cataract Arthritis Graves disease Family History Family History Sister Uterine cancer Mother No problems noted. Father No problems noted. Family history of problems with anesthesia: No Surgical History Surgical History Hx of bilateral cataract extraction (~2017) Hx of hemorrhoidectomy (~2018) S/P DIAZ (total abdominal hysterectomy) History of esophagogastroduodenoscopy (EGD) (~2014) Hx of colonoscopy (~2018) History of bilateral oophorectomy H/O eye surgery Hx of tonsillectomy H/O hysterectomy for benign disease History of Problems with Anesthesia: No Social History Social History Household Members: Spouse Housing: House Patient Tobacco Use Status: Never used Tobacco Tobacco use type: Cigarette e-Cigarette/Vaping Use: Never Used Use of substances other than those prescribed or required for medical reasons: No Advance Directives: No Advance Directives Information Provided: Yes service: No Current occupational status: employed Cognitive needs: No Hearing needs: No Vision needs: Yes (reading glasses) Meds Allergies Allergy/AdvReac Type Severity Reaction Status Date / Time Seasonal Allergies Allergy Unknown Unknown Verified 12/08/24 13:31 Home Medications ?Medication ?Instructions ?Recorded ?Confirmed ?Last Taken ?Type aspirin 81 mg tablet,delayed 81 mg PO DAILY 03/08/20 12/27/24 12/28/24 08:00 History release ibuprofen 800 mg tablet 800 mg PO Q8H 03/08/20 12/27/24 Unknown History levothyroxine 25 mcg tablet 25 mcg PO DAILY 03/08/20 12/27/24 Unknown History calcium carbonate 500 mg PO DAILY 05/12/24 12/27/24 Unknown History fexofenadine 180 mg tablet 180 mg PO DAILY 05/12/24 12/27/24 Unknown History (Marlen Allergy) lactobacillus combination no.4 3 3,000 mmu cells PO DAILY 05/12/24 12/27/24 Unknown History billion cell capsule (Probiotic) nxnjmmtk-bmy-reaxn acid 0.4 1 tab PO DAILY 05/12/24 12/27/24 Unknown History mg-lycopene 300 mcg-lutein 250 mcg tablet (Centrum Silver) metoprolol tartrate 25 mg tablet 25 mg PO BID 01/09/25 01/09/25 01/09/25 08:00 History Exam Airway Mallampati Class: II TM Dist: >3cm Neck ROM: Full Heart: rrr Lungs: cta Assessment and Plan Assessment Anesthesia Assessment: Anesthesia Plan Discussed Final Anesthetic Review Family History of Problems with Anesthesia: No History of Problems with Anesthesia: No NPO: Yes ASA Class: II Final Preanesthetic Review: No Changes in Pt Med Stat, Meds/Allgs Chart Reviewed and Consent Obtained/Reviewed Patient Risk: Low Procedure Risk: Low Anesthetic Plan Anesthetic Plan: MAC: Disposition: Standard PACU
[2025-01-09 11:48] VITALS: BMI 23.8
[2025-01-09 12:12] VITALS: BP 136/81; PULSE 80; RESP 16; TEMP 36.9; O2SAT 100
[2025-01-09] MEDS: Lactated Ringers 1,000 ML 100 ML IVCONT (12:13)
[2025-01-09 14:41] VITALS: BP 97/50; PULSE 72; RESP 13; TEMP 36.4; O2SAT 95
--- NOTE | 2025-01-09 14:53 | PM.OP ---
Brief Operative Note Date of Service: 01/09/25 Pre-op diagnosis: Screening Post-op diagnosis: other (Colon polyps) Procedure: Colonoscopy to the cecum and TI with hot snare polypectomy x 2 at 20cm and in the ascending colon, and cold snare polypectomy at 40cm Surgeon: Solo Adams MD Anesthesia: MAC Was an Supervisor Incising used for this Procedure?: No Estimated blood loss (mL): 2.0 Pathology: other (A. Polyp at 20cm B. Ascending colon polyp C. Polyp at 40cm) Condition: stable Disposition: PACU
[2025-01-09 14:55] VITALS: BP 121/58; PULSE 65; RESP 16; TEMP 36.8; O2SAT 97
--- NOTE | 2025-01-10 00:26 | OP_ITS ---
DATE OF SERVICE: 01/09/2025 SURGEON: Solo Adams MD INDICATIONS: The patient presents for evaluation of colorectal cancer screening and personal history of colon polyps. Full consent has been obtained from her for this, including risks of bleeding and perforation. PREOPERATIVE DIAGNOSIS: POSTOPERATIVE DIAGNOSIS: PROCEDURE PERFORMED: Colonoscopy to the cecum and terminal ileum with hot snare polypectomies and cold snare polypectomy. ESTIMATED BLOOD LOSS: COMPLICATIONS: ANESTHESIA: Medication used, monitored anesthesia care. ASSISTANTS: SPECIMENS: PREOPERATIVE DIAGNOSES: Colorectal cancer screening and personal history of colon polyps. POSTOPERATIVE DIAGNOSES: Colorectal cancer screening and personal history of colon polyps, colon polyps, diverticulosis, and internal hemorrhoids. DESCRIPTION OF PROCEDURE: The patient was placed in the left lateral decubitus position. The digital rectal exam revealed no abnormalities. The Olympus video pediatric colonoscope was entered into the rectum and advanced to the cecum. This was difficult due to diverticulosis and probable adhesions from previous surgery. However, once in the cecum, I did identify normal-appearing cecal pouch with appendiceal orifice and a normal-appearing ileocecal valve. The terminal ileum was cannulated and appeared normal. The scope was withdrawn back in the colon. The entire cecum and ileocecal valve appeared normal. The scope was then slowly withdrawn assessing all mucosal surfaces carefully. Preparation was excellent. In the ascending colon was a flat, but raised polyp, which was removed by hot snare polypectomy, recovered by suction. The polypectomy site appeared clean, without any sign of residual polyp nor bleeding. At 40 cm, was an approximately 4 mm polyp, which was removed by cold snare polypectomy and recovered by suction. The polypectomy site appeared clean, without any sign of residual polyp nor significant bleeding. At 20 cm was an approximately 10 to 12 mm polyp, which was removed by hot snare polypectomy and then recovered by suction. The polypectomy site appeared clean without any sign of residual polyp nor bleeding. I did not visualize any other polyps, colitis, nor angiodysplasia. There was a moderate amount of sigmoid divertuculosis. Once in the rectum the scope was retroflexed visualizing internal hemorrhoids but no other pathology. The rectal mucosa appeared normal. Scope was straightened and withdrawn from the patient. She tolerated the procedure well and was returned to the recovery area in stable condition. IMPRESSION: 1. Colon polyps. 2. Diverticulosis. 3. Internal hemorrhoids. PLAN: I would recommend a repeat colonoscopy in 5 years for further screening. She was advised not to use any aspirin nor NSAIDs for 1 week. She will otherwise see me again as needed. MD BAUDILIO Guzman/SELENA / [id number] MTDD
== END 2025-01-09 15:23 | disposition home or self-care (01) ==
PROVIDERS: Visit Provider Internal Medicine
PROC: 0DJD8ZZ Inspection of Lower Intestinal Tract, Via Natural or Artificial Opening Endoscopic (ICD-10-PCS; CPT 45378; principal; 2025-01-09 13:10)
DX: Z12.11 Encounter for screening for malignant neoplasm of colon (principal); D12.2 Benign neoplasm of ascending colon; D12.5 Benign neoplasm of sigmoid colon; K57.30 Diverticulosis of large intestine without perforation or abscess without bleeding; K64.8 Other hemorrhoids; Z86.0101 Personal history of adenomatous and serrated colon polyps; E78.5 Hyperlipidemia, unspecified
CPT/HCPCS: 45385; 88305; J2003; J2371; J2704

== ENCOUNTER → 2025-01-17 11:15 | Outpatient (REF) | payer MEDICARE, SELFPAY ==
--- OUTSIDE RECORDS SUMMARY | 2024-08-03 05:30 | XMS_ITS ---
Author Organization [facility] Address [address] [place] [address] Care Team Providers Care Outreach Director Name Role Phone Jina (RETIRED) Yan MANCILLA Primary Care Provide Solo Gómez [phone] REASON FOR VISIT screening,hx polyps Encounters Encounter Location Date Provider Diagnosis [facility] [place] [address] [place], [place] [phone] 08/03/2024 Solo Adams Plan Of Treatment No Information Progress Notes * PONCHO MILLERADOB: 2 (74 yo F)Acc No.[id number]:08/03/2024 COLON WITH MAC Patient: CHUY PENALOZA Provider: Vj Adams MD :1950 A ge:73 Y S ex:Female Date:08/03/2024 Address:[address] [place] [place], [place] Pcp:Yan Muro (RETIRED )MD Subjective: * Chief [...] 08/03/2024 Generated for Mario Alberto morris/Danielito/eTransmitting on: 0 01/17/2025 02:07 PM EDT
--- OUTSIDE RECORDS SUMMARY | 2024-10-31 05:20 | XMS_ITS ---
Author Organization [facility] Address [address] [place] [address] Care Team Providers Care Tinner Automatic Name Role Phone Jina (RETIRED) Yan MANCILLA Primary Care Provide Solo Gómez [phone] REASON FOR VISIT screening,hx polyps Encounters Encounter Location Date Provider Diagnosis [facility] [place] [address] [place], [place] [phone] 10/31/2024 Solo Adams Plan Of Treatment No Information Progress Notes * PONCHO MILLERADOB: 2 (74 yo F)Acc No.[id number]:10/31/2024 COLON WITH MAC Patient: CHUY PENALOZA Provider: Vj Adams MD :1950 A ge:73 Y S ex:Female Date:10/31/2024 Address:[address] [place], [place] Pcp:Yan Muro (RETIRED )MD Subjective: * Chief [...] Pending * Provider: Vj Adams MD Date: 10/31/2024 Generated for Mario Alberto morris/Fawilliamsg/eTransmitting on: 0 01/17/2025 02:07 PM EDT
--- OUTSIDE RECORDS SUMMARY | 2025-01-09 09:10 | XMS_ITS ---
Author Organization [facility] Address [address] [place] [address] Care Team Providers Care Medicine Worker Name Role Phone Jina (RETIRED) Yan MANCILLA Primary Care Provide Solo Gómez [phone] REASON FOR VISIT screening colonoscopy Encounters Encounter Location Date Provider [place] [facility] [place] [address] [place], [place] [phone] 01/09/2025 Solo Adams Plan Of Treatment No Information Progress Notes * PONCHO MILLERADOB: 2 (74 yo F)Acc No.[id number]:01/09/2025 COLON WITH MAC Patient: CHUY PENALOZA Provider: Vj Adams MD :1950 A ge:74 Y S ex:Female Date:01/09/2025 Address:[address] [facility] Pcp:Yan Muro (RETIRED )MD Subjective: * Chief [...] Pending * Provider: Vj Adams MD Date: 01/09/2025 Generated for Mario Alberto morris/Danielito/eTransmitting on: 01/17/2025 02:07 PM EDT
--- NOTE | 2025-01-17 11:17 | HM_ITS ---
Conclusion: 1. Patient was monitored for total period of 2 days and 5 hours 2. Baseline was normal sinus rhythm with average heart of 75 beats per minute 3. No significant pauses noted 4. Occasional PVCs noted with total burden of 0.36% 5. No patient reported events MTDD
--- OUTSIDE RECORDS SUMMARY | 2025-01-17 14:07 | XMS_ITS | Clinical Summary ---
Author Organization [facility] Address [facility] [address] [address] Phone Care Team Providers Care Pantograph I Engraver Name Role Phone Yan Muro MD Primary [...] AM EDT Office Visit [facility] [address] [place] [address] Makayla Mckee MD [address] [place] [id number] [email or web address] Health Maintenance Due Date Last Done Comments [...] this topic Medical Devices Implanted Type Area Microfilm Mounter Device Identifier Shelf Expiration Date Model / Serial / Lot Tutoplast Procssd-Pericar d 1.0cm X 1.0cm - [id number] Implanted:Qty: 1 on 09/14/2019 by Jose Healy MD at [facility] Graft Right: [employer] 09/14/2019 / / [id number] Tutoplast Procssd-Pericar d 1.0cm X 1.0cm - [id number] Implanted:Qty: 1 on 01/08/2016 by Jose Healy MD at [facility] Left: [employer] 03/26/2020 / / [id number] Procedures Procedure Name Priority Date/Time Associated Diagnosis Comments TSH WITH REFLEX Routine 07/29/2024 12:32 PM EDT Postablative hypothyroidism from Last 3 Months or Most Recently Relevant to Health Maintenance Results * TSH with reflex (07/29/2024 12:32 PM EDT) TSH 2.04 0.27 - 4.20 uIU/mL [facility] Blood 07/29/2024 12:3 2 PM EDT 07/29/2024 12:37 PM EDT us Makayla Mckee MD LAB BLOOD ORDERABLES F inal Result [address] [address] from Last 3 Months or Most Recently Relevant to Health Maintenance Insurance [employer] MEDEX SUPPLEMENT MEDICARE PART A & B [employer] MEDEX SUPPLEMENT MEDICARE PART A & B [employer] MEDEX SUPPLEMENT MEDICARE PART A & B [employer] MEDEX SUPPLEMENT MEDICARE PART A & B [employer] MEDEX SUPPLEMENT MEDICARE PART A & B [facility] MEDEX SUPPLEMENT MEDICARE PART A & B Advance Directives For more information, please contact: [phone] (9AM - 5PM Teresa/[facility], Thursday-Thursday) Documents on File Type Date Recorded Patient Filler And Trimmer Expl anation Healthcare Proxy 10/10/2015 2:15 PM Care Teams Pantograph I Engraver Relationship Specialty Start Date End Date Yan Muro MD [address] [place] [address] [place] [address] PCP - General Internal Medicine 06/12/23 Additional Source Comments The information contained in this document represents components of the legal health record. It is not the complete legal health record.[facility]
--- OUTSIDE RECORDS SUMMARY | 2025-01-17 14:08 | XMS_ITS | Patient Health Record ---
Author Organization [facility] Address [address] [place] [address] Care Team Providers Care Senior Safety Management Consultant Name Role Phone Jina (RETIRED) Yan MANCILLA Primary Care Provide r Unavailable Solo Adams Unavailable [phone] Allergies No Known Allergies Results Component Value Reference Range Notes Pathology (Not yet reviewed by provider) Interpretation: Performing Lab:[facility], [address] [place] [phone] Notes/Report: Reason For Referral No Information Medications Medication [...] Status Risk Notes Problem Irritable bowel syndrome (98373825) Irritable bowel syndrome (K58.9) Active confirmed Problem 387404954 Encounter for screening for malignant neoplasm of colon (Z12.11) Active confirmed Problem Flatulence, eructation and gas pain (378416587) Bloating (R14.0) Active confirmed Problem Constipation (58915513) Constipation (K59.00) Active confirmed Problem 610042702 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 Problem 53143138 Polyp of colon (K63.5) Active confirmed Problem 08362676 Hiatal hernia (K44.9) Active confirmed Problem 610093804 Hx of adenomatou s colonic polyps (Z86.010) Active confirmed Problem 579951383 Gastroesophageal reflux disease, unspecified whether esophagitis present (K21.9) Active confirmed Vital Signs Temperature 97.5 degrees Fahrenheit 04/26/2024 Blood pressure diastolic 00 mm Hg 04/26/2024 Height 64.5 in 04/26/2024 Blood pressure systolic 000 mm Hg 04/26/2024 Weight 142 lbs 04/26/2024 BMI 24.00 kg/m2 04/26/2024 Encounters Encounter Location Date Provider Diagnosis [facility] [place] [address] [place], [place] [phone] 01/09/2025 Solo Angie [facility] [address] [place] [phone] 04/26/2024 Solo Adams Irritable bowel syndrome K58.9 ; Hx of adenomatous colonic polyps Z86.010 and Encounter for screening for malignant neoplasm of colon Z12.11 [facility] [address] [place] [phone] 08/01/2024 Solo Angie [facility] [address] [place] [phone] 10/25/2024 Solo Adams [facility] [address] [place] [phone] 01/04/2025 oSlo Adams Assessments Encounter Date Diagnosis (ICD Code) Assessment Notes Treatment Notes Treatment Clinical Notes Section Notes 04/26/2024 Irritable bowel syndrome (ICD-10 - K58.9) Overall, Lynn appears quite well. Her irritable bowel syndrome [...] will be done with monitored anesthesia care. Lynn was comfortable with this plan. Thank you again for allowing me to participate in Lynn's care. I shall continue to keep you advised of her progress. 04/26/2024 Hx of adenomatous colonic polyps (ICD-10 - Z86.010) Overall, Lynn appears quite well. Her irritable bowel syndrome [...] will be done with monitored anesthesia care. Lynn was comfortable with this plan. Thank you again for allowing me to participate in Lynn's care. I shall continue to keep you advised of her progress. 04/26/2024 Encounter for screening for malignant neoplasm of colon (ICD-10 - Z12.11) Overall, Lynn appears quite well. Her irritable bowel syndrome [...] will be done with monitored anesthesia care. Lynn was comfortable with this plan. Thank you again for allowing me to participate in Lynn's care. I shall continue to keep you advised of her progress. Plan Of Treatment Pending Test Test Name Order Date Pathology 01/09/2025 Future Test Test Name Order Date UPPER GI ENDOSCOPY 10/17/2014 COLONOSCOPY 10/17/2014 COLONOSCOPY 04/26/2024 Insurance Providers Payer Name Payer Address Payer Phone Subscriber Number Group Number Insured Name Patient Relationship to Insured Coverage Start Date Coverage End Date MEDICARE OF [place] [address] [place] [address] [id number] CHUY MILLER Self - patient is the insured MEDEX ATTN CLAIMS [address] [place] [address] [id number] CHUY MILLER Self - patient is the [...] Kearney's mucosa Graves' disease SVT-on metoprolol Denies [place],DM,CVA,Lung disease,renal dise ase Normal duodenal biopsies in [...]
== END ==
LOC: HO.CARD 11:15
PROVIDERS: PCP Internal Medicine; Visit Provider Internal Medicine
DX: R07.9 Chest pain, unspecified (principal); Z86.79 Personal history of other diseases of the circulatory system
CPT/HCPCS: 93225

== ENCOUNTER → 2025-01-17 11:17 | Outpatient (BNV) | payer MEDICARE, SELFPAY | PROVIDERS: PCP Internal Medicine; Visit Provider Internal Medicine Cardiovascular Disease | DX: I49.3 Ventricular premature depolarization (principal) | CPT/HCPCS: 93227 ==

== ENCOUNTER 2025-01-26 13:16 | Outpatient (REF) | payer MEDICARE, SELFPAY ==
--- OUTSIDE RECORDS SUMMARY | 2024-08-03 05:30 | XMS_ITS ---
Author Organization [facility] Address [address] [place] [address] Care Team Providers Care Photocopier Technician Name Role Phone Jina (RETIRED) Yan MANCILLA Primary Care Provide Solo Gómez [phone] REASON FOR VISIT screening,hx polyps Encounters Encounter Location Date Provider Diagnosis [facility] [place] [address] [place], [place] [phone] 08/03/2024 Solo Adams Plan Of Treatment No Information Progress Notes * PONCHO MILLERADOB: 2 (74 yo F)Acc No.[id number]:08/03/2024 COLON WITH MAC Patient: CHUY PENALOZA Provider: Vj Adams MD :1950 A ge:73 Y S ex:Female Date:08/03/2024 Address:[address] [place], [place] Pcp:Yan Muro (RETIRED )MD Subjective: * Chief [...] Generated for Mario Alberto morris/Danielito/eTransmitting on: 1 02:43 PM EDT
--- OUTSIDE RECORDS SUMMARY | 2024-10-31 05:20 | XMS_ITS ---
Author Organization [facility] Address [address] [place] [address] Care Team Providers Care Printing Machinist Name Role Phone Jina (RETIRED) Yan MANCILLA Primary Care Provide Solo Gómez [phone] REASON FOR VISIT screening,hx polyps Encounters Encounter Location Date Provider Diagnosis [facility] [place] [address] [place], [place] [phone] 10/31/2024 Solo Adams Plan Of Treatment No Information Progress Notes * PONCHO MILLERADOB: 2 (74 yo F)Acc No.[id number]:10/31/2024 COLON WITH MAC Patient: CHUY PENALOZA Provider: Vj Adams MD :1950 A ge:73 Y S ex:Female Date:10/31/2024 Address:[address] [place], [place] Pcp:Yan Muro (RETIRED )MD Subjective: * Chief [...] 10/31/2024 Generated for Mario Alberto morris/Danielito/eTransmitting on: 1 02:44 PM EDT
--- OUTSIDE RECORDS SUMMARY | 2025-01-09 09:10 | XMS_ITS ---
Author Organization [facility] Address [address] [place] [address] Care Team Providers Care Worm Grower Name Role Phone Jina (RETIRED) Yan MANCILLA Primary Care Provide Solo Gómez [phone] REASON FOR VISIT screening colonoscopy Encounters Encounter Location Date Provider Diagnosis [facility] [place] [address] [place], [place] [phone] 01/09/2025 Solo Adams Plan Of Treatment No Information Progress Notes * PONCHO MILLERADOB: 2 (74 yo F)Acc No.[id number]:01/09/2025 COLON WITH MAC Patient: CHUY PENALOZA Provider: Vj Adams MD :1950 A ge:74 Y S ex:Female Date:01/09/2025 Address:[address] [place], [place] Pcp:Yan Muro (RETIRED )MD Subjective: * Chief [...]
--- NOTE | ~2025-01-26 | US_ITS ---
EXAMINATION: US LOWER EXTREMITY VENOUS (REFLUX EXAM), BILATERAL CLINICAL INFORMATION: Varicose veins of the lower extremity with inflammation COMPARISON: None. TECHNIQUE: Color flow triplex imaging and compression Doppler was performed to evaluate both the deep and the superficial systems bilaterally. To evaluate the superficial system, the examination was performed in the upright position. Color-flow Doppler ultrasound and compression ultrasound were utilized. In addition, maneuvers were utilized to demonstrate reflux. FINDINGS: 1. DEEP VENOUS ULTRASOUND OF THE RIGHT LOWER EXTREMITY: Common Femoral Vein: Compressible, normal respiratory variation and augmented flow. Femoral Vein: Compressible, normal color flow and augmentation. Popliteal Vein: Compressible, normal augmentation. Deep Reflux: Popliteal vein > 2300 ms 2. SUPERFICIAL ULTRASOUND WITH DOPPLER OF RIGHT LOWER EXTREMITY: GREAT SAPHENOUS VEIN: Saphenofemoral Junction: 0.4 cm; Reflux: 0 ms Proximal Thigh: 0.3 cm; Reflux: 0 ms Mid Thigh: 0.2 cm; Reflux: 0 ms Distal Thigh: 0.3 cm; Reflux: >2700 ms At Knee: 0.2 cm; Reflux: >2400 ms Below Knee/Proximal Calf: 0.2 cm; Reflux: 700 ms Mid Calf: 0.3 cm; Reflux: 0 ms Ankle/Distal Calf: 0.2 cm; Reflux: 1650 ms SMALL SAPHENOUS VEIN: Linear echogenic material is noted in the deep wall of the proximal small saphenous vein. Drainage: Popliteal vein Saphenopopliteal Junction: 0.3 cm; Reflux: 0 ms Mid calf: 0.2 cm; Reflux: 0 ms Distal: 0.1 cm; Reflux: 0 ms VEIN OF GIACOMINI: Size: 0.1 cm Reflux: 0 ms PERFORATORS: Location: Greater saphenous vein, mid calf Size: 0.2 cm Reflux: 0 ms VARICOSITIES > 3mm: None Imaged 3. DEEP VENOUS ULTRASOUND OF THE LEFT LOWER EXTREMITY: Common Femoral Vein: Compressible, normal respiratory variation and augmented flow. Femoral Vein: Compressible, normal color flow and augmentation. Popliteal Vein: Compressible, normal augmentation. Deep Reflux: Common femoral vein = 1100 ms Mid femoral vein = 1500 ms 4. SUPERFICIAL ULTRASOUND WITH DOPPLER OF LEFT LOWER EXTREMITY: GREAT SAPHENOUS VEIN: Saphenofemoral Junction: 1.3 cm; Reflux: 2300 ms Proximal Thigh: 0.3 cm; Reflux: 1500 ms Mid Thigh: 0.3 cm; Reflux: 1700 ms Distal Thigh: 0.6 cm; Reflux: >2800 ms At Knee: 0.7 cm; Reflux: 2600 ms Below Knee/Proximl calf: 0.5 cm; Reflux: 0 ms Mid Calf: 0.5 cm; Reflux: 750 ms Distal Calf/Ankle: 0.5 cm; Reflux: 2500 ms SMALL SAPHENOUS VEIN: Drainage: Thigh extension Saphenopopliteal Junction: 0.3 cm; Reflux: 0 ms Mid calf: 0.2 cm; Reflux: 0 ms Distal calf: 0.2 cm; Reflux: >2900 ms VEIN OF GIACOMINI: Size: 0.3 Reflux: 0 PERFORATORS: Location: Small saphenous vein, mid Size: 0.2 cm Reflux: 0 ms Location: Small saphenous vein, mid Size: 0.2 cm Reflux: 0 ms Location: Great saphenous vein, [employer] [facility] to varicosity, distal calf Size: 0.3 cm Reflux: 0 ms VARICOSITIES > 3mm: Location: Great saphenous vein, proximal thigh Size: 0.3 cm Reflux: 0 ms Location: Great saphenous vein, mid thigh Size: 0.6 cm Reflux: >3000 ms Location: Great saphenous vein, distal thigh Size: 0.7 cm Reflux: >2900 ms Location: Great saphenous vein, proximal calf Size: 0.5 cm Reflux: 750 ms Location: Great saphenous vein, distal calf Size: 0.3 cm Reflux: 0 ms Location: Great saphenous vein, distal calf Size: 0.6 cm Reflux: 1200 ms US/US venous duplex LE BI IMPRESSION: Right: Deep and superficial venous incompetence. Chronic appearing nonocclusive superficial venous thrombus in the proximal small saphenous vein. Left: Deep and superficial venous incompetence also with numerous refluxing varicosities. Electronically signed by: Nicanor Akbar MD 01/26/2025 02:40 PM EDT
--- OUTSIDE RECORDS SUMMARY | 2025-01-26 14:44 | XMS_ITS | Clinical Summary ---
Author Organization [facility] Address [facility] [employer] [address] [address] Phone Care Team Providers Care Eligibility Examiner Name Role Phone Yan Muro MD Primary [...] AM EDT Office Visit [facility] [address] [place] [address] Makayla Mckee MD [address] [place] [phone] [email or web address] Health Maintenance Due Date Last Done Comments [...] this topic Medical Devices Implanted Type Area Machine Tack Puller Device Identifier Shelf Expiration Date Model / Serial / Lot Tutoplast Procssd-Pericar d 1.0cm X 1.0cm - [id number] Implanted:Qty: 1 on 09/14/2019 by Jose Healy MD at [facility] Graft Right: [employer] 09/14/2019 / / [id number] Tutoplast Procssd-Pericar d 1.0cm X 1.0cm - [id number] Implanted:Qty: 1 on 01/08/2016 by Jose Healy MD at [facility] Left: [employer] 03/26/2020 / / [id number] Procedures Procedure Name Priority Date/Time Associated Diagnosis Comments TSH WITH REFLEX Routine 07/29/2024 12:32 PM EDT Postablative hypothyroidism from Last 3 Months or Most Recently Relevant to Health Maintenance Results * TSH with reflex (07/29/2024 12:32 PM EDT) TSH 2.04 0.27 - 4.20 uIU/mL [facility] Blood 07/29/2024 12:3 2 PM EDT 07/29/2024 12:37 PM EDT us Makayla Mckee MD LAB BLOOD ORDERABLES F inal Result [address] [address] from Last 3 Months or Most Recently Relevant to Health Maintenance Insurance [employer] MEDEX SUPPLEMENT MEDICARE PART A & B [employer] MED[employer] SUPPLEMENT MEDICARE PART A & B [employer] MEDEX SUPPLEMENT MEDICARE PART A & B [employer] MEDEX SUPPLEMENT MEDICARE PART A & B [employer] MEDEX SUPPLEMENT MEDICARE PART A & B [facility] MEDEX SUPPLEMENT MEDICARE PART A & B Advance Directives For more information, please contact: [phone] (9AM - 5PM Teresa/[facility], Thursday-Thursday) Documents on File Type Date Recorded Patient Pantograph Machine Operator Expl anation Healthcare Proxy 10/10/2015 2:15 PM Care Teams Eligibility Examiner Relationship Specialty Start Date End Date Yan Muro MD [address] [place] [address] [place] [address] PCP - General Internal Medicine 06/12/23 Additional Source Comments The information contained in this document represents components of the legal health record. It is not the complete legal health record.[facility]
--- OUTSIDE RECORDS SUMMARY | 2025-01-26 14:44 | XMS_ITS | Patient Health Record ---
Author Organization [facility] Address [address] [place] [address] Care Team Providers Care School Age Program Associate Name Role Phone Jina (RETIRED) Yan MANCILLA Primary Care Provide r Unavailable Solo Adams Unavailable [phone] Allergies No Known Allergies Results Component Value Reference Range Notes Pathology (Not yet reviewed by provider) Interpretation: Performing Lab:[facility], [address] [place] [phone] Notes/Report: Reason For Referral No Information Medications [...] Status Risk Notes Problem Irritable bowel syndrome (47654376) Irritable bowel syndrome (K58.9) Active confirmed Problem 690691538 Encounter for screening for malignant neoplasm of colon (Z12.11) Active confirmed Problem Flatulence, eructation and gas pain (907840509) Bloating (R14.0) Active confirmed Problem Constipation (59529891) Constipation (K59.00) Active confirmed Problem 496992799 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 Problem 93778923 Polyp of colon (K63.5) Active confirmed Problem 22299828 Hiatal hernia (K44.9) Active confirmed Problem 629026407 Hx of adenomatou s colonic polyps (Z86.010) Active confirmed Problem 603055072 Gastroesophageal reflux disease, unspecified whether esophagitis present (K21.9) Active confirmed Vital Signs Temperature 97.5 degrees Fahrenheit 04/26/2024 Blood pressure diastolic 00 mm Hg 04/26/2024 Height 64.5 in 04/26/2024 Blood pressure systolic 000 mm Hg 04/26/2024 Weight 142 lbs 04/26/2024 BMI 24.00 kg/m2 04/26/2024 Encounters Encounter Location Date Provider Diagnosis [facility] [place] [address] [place], [place] [phone] 01/09/2025 Solo Angie [facility] [address] [place] [phone] 04/26/2024 Solo Adams Irritable bowel syndrome K58.9 ; Hx of adenomatous colonic polyps Z86.010 and Encounter for screening for malignant neoplasm of colon Z12.11 [facility] [address] [place] [phone] 08/01/2024 Solo Angie [facility] [address] [place] [phone] 10/25/2024 Solo Adams [facility] [address] [place] [phone] 01/04/2025 Solo Adams Assessments Encounter Date Diagnosis (ICD [...] OF [place] [address] [place] [address] [id number] CHUY MILLER Self - patient is the insured [employer] ATTN CLAIMS [address] [place] [address] [id number] CHUY MILLER Self - patient is the [...] Kearney's mucosa Graves' disease SVT-on metoprolol Denies [place],DM,CVA,Lung disease,renal dise ase Normal duodenal biopsies in [...]
== END 2025-01-26 13:17 | disposition home or self-care (01) ==
LOC: HO.US 13:16
PROVIDERS: PCP Internal Medicine; Visit Provider Surgery Vascular Surgery
DX: I83.12 Varicose veins of left lower extremity with inflammation (principal)
CPT/HCPCS: 93970

== ENCOUNTER → 2025-01-26 13:18 | Outpatient (BNV) | payer MEDICARE, SELFPAY | PROVIDERS: PCP Internal Medicine; Visit Provider Radiology Diagnostic Radiology | DX: I82.811 Embolism and thrombosis of superficial veins of right lower extremity (principal) | CPT/HCPCS: 93970 ==

== ENCOUNTER 2025-01-30 12:34 | Outpatient (AMB) | payer MEDICARE, SELFPAY ==
--- OUTSIDE RECORDS SUMMARY | 2024-08-03 05:30 | XMS_ITS ---
Author Organization [facility] Address [address] [place] [address] Care Team Providers Care Solid Waste Engineer Name Role Phone Jina (RETIRED) Yan MANCILLA Primary Care Provide Solo Gómez [phone] REASON FOR VISIT screening,hx polyps Encounters Encounter Location Date Provider Diagnosis [facility] [place] [address] [phone] 08/03/2024 Solo Adams Plan Of Treatment No Information Progress Notes * PONCHO MILLERADOB: 2 (74 yo F)Acc No.[id number]:08/03/2024 COLON WITH MAC Patient: CHUY PENALOZA Provider: Vj Adams MD :1950 A ge:73 Y S ex:Female Date:08/03/2024 Address:[address] [place], [place] Pcp:Yan Muro (RETIRED )MD Subjective: * Chief [...] Date: 0 08/03/2024 Generated for Mario Alberto morris/Danielito/eTransmitting on: 1 02:58 PM EDT
--- OUTSIDE RECORDS SUMMARY | 2024-10-31 05:20 | XMS_ITS ---
Author Organization [facility] Address [address] [place] [address] Care Team Providers Care Campaign Manager Name Role Phone Jina (RETIRED) Yan MANCILLA Primary Care Provide Solo Gómez [phone] REASON FOR VISIT screening,hx polyps Encounters Encounter Location Date Provider Diagnosis [facility] [place] [address] [place], [place] [phone] 10/31/2024 Solo Adams Plan Of Treatment No Information Progress Notes * PONCHO MILLERADOB: 2 (74 yo F)Acc No.[id number]:10/31/2024 COLON WITH MAC Patient: CHUY PENALOZA Provider: Vj Adams MD :1950 A ge:73 Y S ex:Female Date:10/31/2024 Address:[address] [place], [place] Pcp:Yan Muro (RETIRED )MD Subjective: * Chief [...]
--- OUTSIDE RECORDS SUMMARY | 2025-01-09 09:10 | XMS_ITS ---
Author Organization [facility] Address [address] [place] [address] Care Team Providers Care Wine Maker Name Role Phone Jina (RETIRED) Yan MANCILLA Primary Care Provide Solo Gómez [phone] REASON FOR VISIT screening colonoscopy Encounters Encounter Location Date Provider Diagnosis [facility] [place] [address] [place], [place] [phone] 01/09/2025 Solo Adams Plan Of Treatment No Information Progress Notes * PONCHO MILLERADOB: 2 (74 yo F)Acc No.[id number]:01/09/2025 COLON WITH MAC Patient: CHUY PENALOZA Provider: Vj Adams MD :1950 A ge:74 Y S ex:Female Date:01/09/2025 Address:[address] [place], [place] Pcp:Yan Muro (RETIRED )MD Subjective: * Chief [...] Adams MD Date: 0 01/09/2025 Generated for Mairo Alberto morris/Danielito/eTransmitting on: 1 02:58 PM EDT
--- OUTSIDE RECORDS SUMMARY | 2025-01-30 14:59 | XMS_ITS | Patient Health Record ---
Author Organization [facility] Address [address] [place] [address] Care Team Providers Care Welder/Installer Name Role Phone Jina (RETIRED) Yan MANCILLA Primary Care Provide r Unavailable Solo Adams Unavailable [phone] Allergies No Known Allergies Results Component Value Reference Range Notes Pathology (Not yet reviewed by provider) Interpretation: Performing Lab:[facility], [address] [place] [phone] Notes/Report: Reason For Referral No Information Medications [...] Status Risk Notes Problem Irritable bowel syndrome (18622461) Irritable bowel syndrome (K58.9) Active confirmed Problem 085714664 Encounter for screening for malignant neoplasm of colon (Z12.11) Active confirmed Problem Flatulence, eructation and gas pain (462192388) Bloating (R14.0) Active confirmed Problem Constipation (18713740) Constipation (K59.00) Active confirmed Problem 989828960 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 Problem 30193848 Polyp of colon (K63.5) Active confirmed Problem 36618239 Hiatal hernia (K44.9) Active confirmed Problem 666803511 Hx of adenomatou s colonic polyps (Z86.010) Active confirmed Problem 040794720 Gastroesophageal reflux disease, unspecified whether esophagitis present (K21.9) Active confirmed Vital Signs Temperature 97.5 degrees Fahrenheit 04/26/2024 Blood pressure diastolic 00 mm Hg 04/26/2024 Height 64.5 in 04/26/2024 Blood pressure systolic 000 mm Hg 04/26/2024 Weight 142 lbs 04/26/2024 BMI 24.00 kg/m2 04/26/2024 Encounters Encounter Location Date Provider Diagnosis [facility] Outpatient [address] [place], [place] [phone] 01/09/2025 Solo Angie [facility] [address] [place] [phone] 04/26/2024 Solo Adams Irritable bowel syndrome K58.9 ; Hx of adenomatous colonic polyps Z86.010 and Encounter for screening for malignant neoplasm of colon Z12.11 [facility] [address] [place] [phone] 08/01/2024 Solo Angie [facility] [address] [place] [phone] 10/25/2024 Solo Adams [facility] [address] [place] [phone] 01/04/2025 Solo Adams Assessments Encounter Date Diagnosis [...] OF [place] [address] [place] [address] [id number] CHUY MILLER Self - patient is the insured [employer] ATT[employer] CLAIMS [address] [place] [address] [id number] CHUY MILLER Self - patient is the [...] Kearney's mucosa Graves' disease SVT-on metoprolol Denies SC,DM,CVA,Lung disease,renal dise ase Normal duodenal biopsies in [...]
--- OUTSIDE RECORDS SUMMARY | 2025-01-30 14:59 | XMS_ITS | Clinical Summary ---
Author Organization [facility] Address [facility] [employer] [address] [address] Phone Care Team Providers Care Latex Fashions Designer Name Role Phone Yan Muro MD Primary [...] AM EDT Office Visit [facility] [address] [place] [address] Makayla Mckee MD [address] [place] [phone] [email or web address] Health Maintenance Due Date Last [...] this topic Medical Devices Implanted Type Area At Risk Specialist Device Identifier Shelf Expiration Date Model / Serial / Lot Tutoplast Procssd-Pericar d 1.0cm X 1.0cm - [id number] Implanted:Qty: 1 on 09/14/2019 by Jose Healy MD at [facility] Graft Right: [employer] 09/14/2019 / / [id number] Tutoplast Procssd-Pericar d 1.0cm X 1.0cm - [id number] Implanted:Qty: 1 on 01/08/2016 by Jose Healy MD at [facility] Left: [employer] 03/26/2020 / / [id number] Procedures Procedure Name Priority Date/Time Associated Diagnosis Comments TSH WITH REFLEX Routine 07/29/2024 12:32 PM EDT Postablative hypothyroidism from Last 3 Months or Most Recently Relevant to Health Maintenance Results * TSH with reflex (07/29/2024 12:32 PM EDT) TSH 2.04 0.27 - 4.20 uIU/mL [facility] Blood 07/29/2024 12:3 2 PM EDT 07/29/2024 12:37 PM EDT us Makayla Mckee MD LAB BLOOD ORDERABLES F inal Result [address] [address] from Last 3 Months or Most Recently Relevant to Health Maintenance Insurance [employer] SUPPLEMENT MEDICARE PART A & B [employer] SU[employer] MEDICARE PART A & B [employer] SU[employer] MEDICARE PART A & B [employer] SU[employer] MEDICARE PART A & B [employer] SUPPLEMENT MEDICARE PART A & B [facility] MEDEX SUPPLEMENT MEDICARE PART A & B Advance Directives For more information, please contact: [phone] (9AM - 5PM Teresa/[facility], Thursday-Thursday) Documents on File Type Date Recorded Patient Fretted String Instrument Repairer Expl anation Healthcare Proxy 10/10/2015 2:15 PM Care Teams Latex Fashions Designer Relationship Specialty Start Date End Date Yan Muro MD [address] [place] [address] [place] [address] PCP - General Internal Medicine 06/12/23 Additional Source Comments The information contained in this document represents components of the legal health record. It is not the complete legal health record.[facility]
== END 2025-01-30 12:35 | disposition home or self-care (01) ==
LOC: HO.HMGAL 12:34
PROVIDERS: PCP Internal Medicine; Visit Provider Registered Nurse Emergency
DX: J30.89 Other allergic rhinitis (principal)
CPT/HCPCS: 95117; 95165

== ENCOUNTER 2025-02-17 11:02 | Outpatient (AMB) | payer MEDICARE, SELFPAY ==
--- OUTSIDE RECORDS SUMMARY | 2024-08-03 05:30 | XMS_ITS ---
Author Organization [facility] Address [address] [place] [address] Care Team Providers Care Rabbet Operator Name Role Phone Jina (RETIRED) Yan MANCILLA Primary Care Provide Solo Gómez [phone] REASON FOR VISIT screening,hx polyps Encounters Encounter Location Date Provider Diagnosis [facility] [address] [place], [place] [phone] 08/03/2024 Solo Adams Plan Of Treatment No Information Progress Notes * PONCHO MILLERADOB: 2 (74 yo F)Acc No.[id number]:08/03/2024 COLON WITH MAC Patient: CHUY PENALOZA Provider: Vj Adams MD :1950 A ge:73 Y S ex:Female Date:08/03/2024 Address:[address] [place], [place] Pcp:Yan Muro (RETIRED )MD Subjective: * Chief [...] Generated for Mario Alberto morris/Danielito/eTransmitting on: 1 01:08 PM EDT
--- OUTSIDE RECORDS SUMMARY | 2024-10-31 05:20 | XMS_ITS ---
Author Organization [facility] Address [address] [place] [address] Care Team Providers Care Fruit Loader Machine Operator Name Role Phone Jina (RETIRED) Yan MANCILLA Primary Care Provide Solo Gómez [phone] REASON FOR VISIT screening,hx polyps Encounters Encounter Location Date Provider Diagnosis [facility] [place] [address] [place], [place] [phone] 10/31/2024 Solo Adams Plan Of Treatment No Information Progress Notes * PONCHO MILLERADOB: 2 (74 yo F)Acc No.[id number]:10/31/2024 COLON WITH MAC Patient: CHUY PENALOZA Provider: Vj Adams MD :1950 A ge:73 Y S ex:Female Date:10/31/2024 Address:[address] [place], [place] Pcp:Yan Muro (RETIRED )MD Subjective: * Chief [...] 10/31/2024 Generated for Mario Alberto morris/Danielito/eTransmitting on: 01:07 PM EDT
--- OUTSIDE RECORDS SUMMARY | 2025-01-09 09:10 | XMS_ITS ---
Author Organization [facility] Address [address] [place] [address] Care Team Providers Care Physicist Astrophysics Name Role Phone Jina (RETIRED) Yan MANCILLA Primary Care Provide Solo Gómez [phone] REASON FOR VISIT screening colonoscopy Encounters Encounter Location Date Provider Diagnosis [facility] [place] [address] [place], [place] [phone] 01/09/2025 Solo Adams Plan Of Treatment No Information Progress Notes * PONCHO MILLERADOB: 2 (74 yo F)Acc No.[id number]:01/09/2025 COLON WITH MAC Patient: CHUY PENALOZA Provider: Vj Adams MD :1950 A ge:74 Y S ex:Female Date:01/09/2025 Address:[address] [place], [place] Pcp:Yan Muro (RETIRED )MD Subjective: * Chief [...] 01/09/2025 Generated for Mario Alberto morris/Danielito/eTransmitting on: 01:08 PM EDT
--- NOTE | 2025-02-17 11:06 | MHC.PC.OV ---
Vital Signs 02/17/25 11:10 Height 5 ft 4.5 in Weight 135 lb 4 oz BMI 22.9 BP 120/62 Blood Pressure Location Rt brachial Position Sitting Respiration 16 Pulse 78 Pulse Source Pulse Oximeter Temp 98 F Temp Source Oral Pulse Oximetry (%) 99 Oxygen Delivery Method Room Air Intake Visit Reasons: follow-up chest pain Intake Note: follow-up chest pain Fine Chemicals Operator Required: No Allergies Seasonal Allergies Allergy (Unknown, Verified 02/17/25 11:07) Unknown Tobacco use date assessed: 02/17/25 Fall risk assessment: No Falls in past year Last assessed Fall Risk: 02/17/25 Dental Screening Dental Screen Date: 02/17/25 Did you have a dental visit in the last 12 months?: Yes Did you have a dental problem in the last 6 months where you did not have access to dental care?: No Was dental information given to patient?: Patient has dentist HPI HPI Comments History of Present Illness Details 74 year old female with a past medical history of hypothyroid, hyperlipdiemia, SVT, colon polyps, allergic rhinitis presenting for follow up. CV: On metoprolol daily. History of SVT. ER in October.. Developed chest pressure palpitations, nauseous and some back pain. EKG done. .Labs were consistent with infection, likely viral. Stress test was equivocal for small area of apical ischemia. Upcoming cardiology visit. She tells me that she always previously took pre dental and pre GI abx. Endocrine: Follows with Dr Mckee. TSH. On levothyroxine 25mcg six days a week MSK: Polyarthralgia. OA. Follows with rheumatology. Takes chondriotin and glucosamine, biotin, DHEA, vitamin D3, flaxseed. she tried metformin after reading about anti-inflammatory properties without any benefit so stopped Leg pain swelling.Upcoming vascular visit ROS see HPI PHYSICAL EXAM: GENERAL: Alert and oriented x 3. NAD EYES: EOMI. Anicteric. HENT: Moist mucous membranes. No scleral icterus. No cervical lymphadenopathy. LUNGS: Clear to auscultation bilaterally. CARDIOVASCULAR: Regular rate and rhythm. No JVD. ABDOMEN: Soft, non-tender +bs EXTREMITIES: No edema. Non-tender. SKIN: No rashes or lesions. Warm. NEUROLOGIC: Right coarse hand tremor PSYCHIATRIC: Cooperative. Appropriate mood and affect [facility] Medical History Seasonal allergies Hypothyroidism Hx of hypoglycemia Hx of supraventricular tachycardia Hiatal hernia GERD (gastroesophageal reflux disease) IBS (irritable bowel syndrome) Cataract Arthritis Graves disease Surgical History Hx of bilateral cataract extraction (~2018) Hx of hemorrhoidectomy (~2019) S/P DIAZ (total abdominal hysterectomy) History of esophagogastroduodenoscopy (EGD) (~2014) Hx of colonoscopy (~2018) History of bilateral oophorectomy H/O eye surgery Hx of tonsillectomy H/O hysterectomy for benign disease Family History Sister Uterine cancer Mother No problems noted. Father No problems noted. Social History Household Members: Spouse Housing: House Alcohol intake: never Patient Tobacco Use Status: Never used Tobacco Tobacco use type: Cigarette e-Cigarette/Vaping Use: Never Used service: No Current occupational status: employed Cognitive needs: No Hearing needs: No Vision needs: Yes (reading glasses) Questionnaire PHQ-9 Over the last 2 weeks, how often have you been bothered by any of the following problems? 1. Little interest or pleasure in doing things: not at all 2. Feeling down, depressed, or hopeless: not at all 3. Trouble falling or staying asleep, or sleeping too much: not at all 4. Feeling tired or having little energy: not at all 5. Poor appetite or overeating: not at all 6. Feeling bad about yourself - or that you are a failure or have let yourself or your family down: not at all 7. Trouble concentrating on things, such as reading the newspaper or watching television: not at all 8. Moving or speaking so slowly that other people could have noticed. Or the opposite - being so fidgety or restless that you have been moving around a lot more than usual: not at all 9. Thoughts that you would be better off or of hurting yourself in some way: not at all Total score: 0 Depression Screening Interpretation: Negative Depression Screening Done: Yes [address]1987 - PHQ-9 Billing: Yes Source: Developed by Drs. Solo De La Torre, Isela Pickens, Marshall Abbasi and colleagues, with an educational familia from [employer]. Thrive Questionnaire Date Thrive assessed: 11/11/24 I am a: Patient What is your living situation today?: I have a steady place to live Within the past 12 months, did the food you bought not last and you didn't have the money to get more?: Never true Within the past 12 months, did you worry whether your food would run out before you got money to buy more?: Never true Do you have trouble paying for medicines?: No Do you have trouble getting transportation to medical appointments?: No Do you have trouble paying your heating and electricity bill?: No Do you have trouble taking care of your child, family member or friend?: No Do you have trouble with day-to-day activities such as bathing, preparing meals, shopping, managing finances, etc.?: No Are you currently unemployed and looking for a job?: No Are you interested in more education?: No Please select the resources that you would like help with: None Currently or been in a relationship where the following occur: No concerns reported THRIVE Score: 0 AUDIT C Alcohol Use Questionnaire (AUDIT-C) 1. How often do you have a drink containing alcohol?: Never 3. How often do you have six or more drinks on one occasion?: Never Total Score: 0 KOFI-7 AMB Questionnaire KOFI-7 Date KOFI - 7 assessed: 11/11/24 Feeling nervous, anxious, or on edge: 0 = Not at all Not being able to stop or control worryin = Not at all Worrying too much about different things: 0 = Not at all Trouble relaxin = Not at all Being so restless that it is hard to sit still: 0 = Not at all Becoming easily annoyed or irritable: 0 = Not at all Feeling afraid as if something awful might happen: 0 = Not at all Total KOFI-7 score (0-4 normal; 5-9 mild; 10-14 moderate; 15-21 severe): 0 Source: Developed by Drs. Solo De La Torre, Marshall Ohara and colleagues, with an educational familia from [employer]. Physical exam (Primary Care) Vital Signs: Last Vital Signs Temp 98 F 02/17/25 11:10 Pulse 78 02/17/25 11:10 Resp 16 02/17/25 11:10 BP 120/62 02/17/25 11:10 Pulse Ox 99 02/17/25 11:10 Oxygen Delivery Method Room Air 02/17/25 11:10 BMI result Body Mass Index 22.9 Tobacco/Smoking Status: Tobacco use Status Tobacco use date assessed 02/17/25 02/17/25 11:14 Patient Tobacco Use Status Never used Tobacco 02/17/25 11:14 Tobacco use type Cigarette 02/17/25 11:14 e-Cigarette/Vaping Use Never Used 02/17/25 11:14 PHQ-9: PHQ-9 Score PHQ-9: Total score 0 02/17/25 11:59 Depression Screening Interpretation: Negative Thrive Assessment: Date of Thrive Assessment Date Thrive assessed 11/11/24 02/17/25 11:14 Currently or been in a relationship where the following occur: No concerns reported Coding Level of Care Code Est Pt Level 4 (20750) Complex EM visit Add On G2211 Diagnoses Palpitations R00.2 Hypothyroidism, unspecified type E03.9 Hypothyroidism type: unspecified Arthritis M19.90 Additional Codes PHQ-9 - 17327 - PHQ-9 Billing: Yes ([id number]) Assessment & Plan Assessment & Plan (1) Palpitations: Code(s): R00.2 - Palpitations Category: Medical (2) Hypothyroidism: Comment: s/p irradiation for Grave's disease Code(s): E03.9 - Hypothyroidism, unspecified Category: Medical Qualifiers: Hypothyroidism type: unspecified Qualified Code(s): E03.9 - Hypothyroidism, unspecified (3) Arthritis: Code(s): M19.90 - Unspecified osteoarthritis, unspecified site Category: Medical Plan 74 year old for follow up Abnormal stress test, h/o chest pain, palpitations-upcoming cardiology visit MSK-continue rheumatology follow up Hypothyroid-on levothyroxine. continue endocrine follow up Orders: Orders Lipid Panel 02/17/25 E78.5 - Hyperlipidemia, unspecified, M19.90 - Unspecified osteoarthritis, unspecified site, R00.2 - Palpitations, R07.9 - Chest pain, unspecified Complete Blood Count Auto Diff 02/17/25 E78.5 - Hyperlipidemia, unspecified, M19.90 - Unspecified osteoarthritis, unspecified site, R00.2 - Palpitations, R07.9 - Chest pain, unspecified Comprehensive Met. Panel 02/17/25 E78.5 - Hyperlipidemia, unspecified, M19.90 - Unspecified osteoarthritis, unspecified site, R00.2 - Palpitations, R07.9 - Chest pain, unspecified TSH reflex Free T4 4 Months E78.5 - Hyperlipidemia, unspecified, M19.90 - Unspecified osteoarthritis, unspecified site, R00.2 - Palpitations, R07.9 - Chest pain, unspecified Medications: New amoxicillin 2,000 mg (4 x 500 mg) PO ONCE PRN 28 tabs 0RF dental work
[2025-02-17 11:10] VITALS: BP 120/62; PULSE 78; RESP 16; TEMP 36.6; O2SAT 99; BMI 22.9
--- OUTSIDE RECORDS SUMMARY | 2025-02-17 13:08 | XMS_ITS | Clinical Summary ---
Author Organization [facility] Address [facility] [employer] [address] [address] Phone Care Team Providers Care Vamp Marker Name Role Phone Yan Muro MD Primary [...] AM EDT Office Visit [facility] [address] [place] [address] Makayla Mckee MD [address] [place] [phone] [email or web address] Health Maintenance Due Date Last Done Comments [...] this topic Medical Devices Implanted Type Area Printing Supervisor Device Identifier Shelf Expiration Date Model / Serial / Lot Tutoplast Procssd-Pericar d 1.0cm X 1.0cm - [id number] Implanted:Qty: 1 on 09/14/2019 by Jose Healy MD at [facility] Graft Right: [employer] 09/14/2019 / / [id number] Tutoplast Procssd-Pericar d 1.0cm X 1.0cm - [id number] Implanted:Qty: 1 on 01/08/2016 by Jose Healy MD at [facility] Left: [employer] 03/26/2020 / / [id number] Procedures Procedure Name Priority Date/Time Associated Diagnosis Comments TSH WITH REFLEX Routine 07/29/2024 12:32 PM EDT Postablative hypothyroidism from Last 3 Months or Most Recently Relevant to Health Maintenance Results * TSH with reflex (07/29/2024 12:32 PM EDT) TSH 2.04 0.27 - 4.20 uIU/mL [facility] Blood 07/29/2024 12:3 2 PM EDT 07/29/2024 12:37 PM EDT us Makayla Mckee MD LAB BLOOD ORDERABLES F inal Result [address] [address] from Last 3 Months or Most Recently Relevant to Health Maintenance Insurance [email or web address] MEDEX SUPPLEMENT MEDICARE PART A & B [email or web address] SUPPLEMENT MEDICARE PART A & B [email or web address] SUPPLEMENT MEDICARE PART A & B [email or web address] SUPPLEMENT MEDICARE PART A & B [email or web address] MED[employer] SUPPLEMENT MEDICARE PART A & B [facility] MEDEX SUPPLEMENT MEDICARE PART A & B Advance Directives For more information, please contact: [phone] (9AM - 5PM Teresa/[facility], Thursday-Thursday) Documents on File Type Date Recorded Patient Construction Carpenter Expl anation Healthcare Proxy 10/10/2015 2:15 PM Care Teams Vamp Marker Relationship Specialty Start Date End Date Yan Muro MD [address] [place] [address] [place] [address] PCP - General Internal Medicine 06/12/23 Additional Source Comments The information contained in this document represents components of the legal health record. It is not the complete legal health record.[facility]
--- OUTSIDE RECORDS SUMMARY | 2025-02-17 13:09 | XMS_ITS | Patient Health Record ---
Author Organization [facility] Address [address] [place] [address] Care Team Providers Care Building Dismantler Name Role Phone Jina (RETIRED) Yan MANCILLA Primary Care Provide r Unavailable Solo Adams Unavailable [phone] Allergies No Known Allergies Results Component Value Reference Range Notes Pathology (Not yet reviewed by provider) Interpretation: Performing Lab:[facility], [address] [place] [phone] Notes/Report: Reason For Referral No Information Medications [...] Active Estradiol 0.0375 MG/24HR APPLY 1 PATCH TOPICALLY TWICE A WEEK. Transdermal; Duration: 84 Not-Taking Immunizations Vaccine Route Administration Date Status Comme nts Influenza Unknown 12/27/2019 Administered Influenza Unknown 01/25/2022 Administered Influenza Unknown 03/29/2024 Administered Problems Problem Type SNOMED Code ICD Code Onset Dates Problem Status W/U Status Risk Notes Problem Irritable bowel syndrome (43367145) Irritable bowel syndrome (K58.9) Active confirmed Problem Screening for malignant neoplasm of colon (234385478) Encounter for screening for malignant neoplasm of colon (Z12.11) Active confirmed Problem Flatulence, eructation and gas pain (358109933) Bloating (R14.0) Active confirmed Problem Constipation (70854427) Constipation (K59.00) Active confirmed Problem Kearney's esophagus (833968506) Kearney's esophagus without dysplasia (K22.70) Active confirmed Problem Polyp of colon (55627252) Polyp of colon (K63.5) Active confirmed Problem Hiatal hernia (40433937) Hiatal hernia (K44.9) Active confirmed Problem History of adenomatous polyp of colon (691313315) Hx of adenomatous colonic polyps (Z86.010) Active confirmed Problem Gastroesophageal reflux disease (752436841) Gastroesophageal reflux disease, unspecified whether esophagitis present (K21.9) Active confirmed Vital Signs Temperature 97.5 degrees Fahrenheit 04/26/2024 Blood pressure diastolic 00 mm Hg 04/26/2024 Height 64.5 in 04/26/2024 Blood pressure systolic 000 mm Hg 04/26/2024 Weight 142 lbs 04/26/2024 BMI 24.00 kg/m2 04/26/2024 Encounters Encounter Location Date Provider Diagnosis [facility] [address] [place] [id number] 01/09/2025 Solo Adams [facility] [address] [facility] [address] [place] [phone] 04/26/2024 Solo Adams Irritable bowel syndrome K58.9 ; Hx of adenomatous colonic polyps Z86.010 and Encounter for screening for malignant neoplasm of colon Z12.11 [facility] [address] [address] 08/01/2024 Solo Adams [facility] [address] [facility] [address] [place] [phone] 10/25/2024 Solo Adams [facility] [address] [address] 01/04/2025 Solo Adams Assessments Encounter Date Diagnosis [...] Date MEDICARE OF [place] [address] [place] [address] [id number] CHUY MILLER Self - patient is the insured [employer] ATTN CLAIMS [address] [place] [address] [id number] CHUY MILLER Self - patient is the [...] Kearney's mucosa Graves' disease SVT-on metoprolol Denies NC,DM,CVA,Lung disease,renal dise ase Normal duodenal biopsies in [...]
== END 2025-02-17 12:00 | disposition home or self-care (01) ==
LOC: HO.HMCFM 11:02
PROVIDERS: PCP Internal Medicine; Visit Provider Internal Medicine
DX: R00.2 Palpitations (principal); E03.9 Hypothyroidism, unspecified; M19.90 Unspecified osteoarthritis, unspecified site

== ENCOUNTER → 2025-02-17 11:02 | Outpatient (BNVA) | payer MEDICARE, SELFPAY | PROVIDERS: PCP Internal Medicine; Visit Provider Internal Medicine | DX: R00.2 Palpitations (principal); E03.9 Hypothyroidism, unspecified; M19.90 Unspecified osteoarthritis, unspecified site; Z79.899 Other long term (current) drug therapy; Z13.31 Encounter for screening for depression | CPT/HCPCS: 96127; 99212 ==

== ENCOUNTER 2025-02-21 13:47 | Outpatient (AMB) | payer MEDICARE, SELFPAY ==
--- NOTE | 2025-02-21 13:49 | A.OFFVIS_ITS ---
Intake Visit Reasons: Follow Up 01/26 US Intake Note: Patient presents for US performed on 01/26/25. No complaints. Accompanied by: Self / Same As Patient Allergies Seasonal Allergies Allergy (Unknown, Verified 02/21/25 13:50) Unknown HPI HPI Follow Up 01/26 US: Details: 74-year-old female presents for follow-up regarding venous insufficiency. She reports that she has significant swelling in addition to a large cluster of varicosities in the left thigh. She now presents for routine follow-up. PFS Medical History Seasonal allergies Hypothyroidism Hx of hypoglycemia Hx of supraventricular tachycardia Hiatal hernia GERD (gastroesophageal reflux disease) IBS (irritable bowel syndrome) Cataract Arthritis Graves disease Surgical History Hx of bilateral cataract extraction (~2017) Hx of hemorrhoidectomy (~2018) S/P DIAZ (total abdominal hysterectomy) History of esophagogastroduodenoscopy (EGD) (~2014) Hx of colonoscopy (~2018) History of bilateral oophorectomy H/O eye surgery Hx of tonsillectomy H/O hysterectomy for benign disease Family History Sister Uterine cancer Mother No problems noted. Father No problems noted. Social History Household Members: Spouse Housing: House Alcohol intake: never Patient Tobacco Use Status: Never used Tobacco Tobacco use type: Cigarette e-Cigarette/Vaping Use: Never Used service: No Current occupational status: employed Cognitive needs: No Hearing needs: No Vision needs: Yes (reading glasses) Review of Systems Const Reports as per HPI ENT Reports no additional complaints Card Denies chest pain, Denies chest pain at rest and Denies chest pain with activity Resp Denies chest congestion and Denies cough GI Reports no additional complaints Musc Details: pain over varicosities, aching of lower extremities, swelling, cramping, heaviness and tiredness, itching Denies abnormal gait Skin/Breast Reports pruritus and Denies wounds Neuro Reports no additional complaints and Denies abnormal gait Psych Denies no additional complaints Physical Exam Const General: cooperative, healthy appearing and comfortable Orientation/consciousness: oriented to person, oriented to place and oriented to time Neck Carotids: no bruits Chest Chest palpation & inspection: normal inspection of the chest and normal palpation of entire chest wall Resp Effort & Inspection: normal respiratory effort and able to speak in complete sentences Cardio Rate: regular rate Heart sounds: S1 normal heart sound present and S2 normal heart sound present Peripheral pulses: Peripheral pulses 2+ throughout GI Inspection: Yes normal to inspection Skin Other: +2 edema, large rope-like varicosities greater than 4 mm left thigh and calf CEAP Classification C4 - skin color changes Ep - Etiology Primary As - superficial veins P - reflux General skin exam: dry skin Neuro General: oriented to person, oriented to place and oriented to time Extrem Right lower extremity: full ROM, normal capillary refill and edema Left lower extremity: full ROM, normal capillary refill and edema Psych Mental Status: mental status grossly normal Results Reviewed Results Reviewed: Brief summary of venous insufficiency testing is as follows: right great saphenous vein: Positive right small saphenous vein: negative right accessory vein: none present left great saphenous vein: Positive left small saphenous vein: negative left accessory vein: none present Please note there is no evidence of any venous aneurysms or significant tortuosity Assessment & Plan Assessment & Plan (1) Varicose veins of left lower extremity with inflammation: Code(s): I83.12 - Varicose veins of left lower extremity with inflammation Category: Medical Plan: This patient has varicose veins with inflammation. They continue to be a source of discomfort for the patient. The patient has tried conservative treatment with compression, leg elevation and exercise program for over 3 months time. They have been compliant with all treatment. This has provided minimal relief for the patient. I do not anticipate this course of treatment will alter the underlying etiology. The patient has been scheduled for lower extremity venous treatment inclusive of --- left great saphenous vein radiofrequency abla tion. Risks, benefits, and complications of this procedure has been discussed in detail with the patient including but not limited to bleeding, infection, and the development of a DVT. The patient has demonstrated a clear understanding and has consented. We will schedule the patient as soon as possible. Thank you for allowing us to participate in this patient's care. If there are any quest ions or concerns please do not hesitate to contact us. Coding Level of Care Code Est Pt Level 4 (09175) Complex EM visit Add On G2211 Diagnoses Varicose veins of left lower extremity with inflammation I83.12
--- OUTSIDE RECORDS SUMMARY | 2025-02-21 18:00 | XMS_ITS | Clinical Summary ---
Author Organization [facility] Address [facility] [employer] [address] [address] Phone Care Team Providers Care Alligator Trapper Name Role Phone Yna Muro MD Primary Care Provider Allergies Active [...] AM EDT Office Visit [facility] [address] [place] [address] Makayla Mckee MD [address] [place] [phone] [email or web address] Health Maintenance Due Date Last Done [...] this topic Medical Devices Implanted Type Area Food Sales Clerk Device Identifier Shelf Expiration Date Model / Serial / Lot Tutoplast Procssd-Pericar d 1.0cm X 1.0cm - [id number] Implanted:Qty: 1 on 09/14/2019 by Jose Healy MD at [facility] Graft Right: [employer] 09/14/2019 / / [id number] Tutoplast Procssd-Pericar d 1.0cm X 1.0cm - [id number] Implanted:Qty: 1 on 01/08/2016 by Jose Healy MD at [facility] Left: [employer] 03/26/2020 / / [id number] Procedures Procedure Name Priority Date/Time Associated Diagnosis Comments TSH WITH REFLEX Routine 07/29/2024 12:32 PM EDT Postablative hypothyroidism from Last 3 Months or Most Recently Relevant to Health Maintenance Results * TSH with reflex (07/29/2024 12:32 PM EDT) TSH 2.04 0.27 - 4.20 uIU/mL [facility] Blood 07/29/2024 12:3 2 PM EDT 07/29/2024 12:37 PM EDT us Makayla Mckee MD LAB BLOOD ORDERABLES F inal Result [address] [address] from Last 3 Months or Most Recently Relevant to Health Maintenance Insurance [employer] MEDEX SUPPLEMENT MEDICARE PART A & B [employer]) MEDEX SUPPLEMENT MEDICARE PART A & B [employer] MEDEX SUPPLEMENT MEDICARE PART A & B [employer]) MEDEX SUPPLEMENT MEDICARE PART A & B [employer]) MEDEX SUPPLEMENT MEDICARE PART A & B [facility] MEDEX SUPPLEMENT MEDICARE PART A & B Advance Directives For more information, please contact: [phone] (9AM - 5PM Teresa/[facility], Thursday-Thursday) Documents on File Type Date Recorded Patient Machine Puller And Laster Expl anation Healthcare Proxy 10/10/2015 2:15 PM Care Teams Alligator Trapper Relationship Specialty Start Date End Date Yan Muro MD [address] [place] [address] [place] [address] PCP - General Internal Medicine 06/12/23 Additional Source Comments The information contained in this document represents components of the legal health record. It is not the complete legal health record.[facility]
== END 2025-02-21 14:21 | disposition home or self-care (01) ==
LOC: HO.HVS 13:48
PROVIDERS: PCP Internal Medicine; Visit Provider Surgery Vascular Surgery
DX: I83.12 Varicose veins of left lower extremity with inflammation (principal)
CPT/HCPCS: 99214; G2211

== ENCOUNTER → 2025-02-21 13:47 | Outpatient (BNVA) | payer MEDICARE, SELFPAY | PROVIDERS: PCP Internal Medicine; Visit Provider Surgery Vascular Surgery | DX: I83.12 Varicose veins of left lower extremity with inflammation (principal) | CPT/HCPCS: 99212 ==

== ENCOUNTER 2025-02-27 11:10 | Outpatient (AMB) | payer MEDICARE, SELFPAY ==
--- OUTSIDE RECORDS SUMMARY | 2024-08-03 04:30 | XMS_ITS ---
Author Organization [facility] Address [address] [place] [address] Care Team Providers Care Grain Farmer Name Role Phone Jina (RETIRED) Yan MANCILLA Primary Care Provide Solo Gómez [phone] REASON FOR VISIT screening,hx polyps Encounters Encounter Location Date Provider Diagnosis [facility] Out[place] [address] [place], [place] [phone] 08/03/2024 Solo Adams Plan Of Treatment No Information Progress Notes * PONCHO MILLERADOB: 2 (74 yo F)Acc No.[id number]:08/03/2024 COLON WITH MAC Patient: CHUY PENALOZA Provider: Vj Adams MD :1950 A ge:73 Y S ex:Female Date:08/03/2024 Address:[address] [place], [place] Pcp:Yan Muro (RETIRED )MD Subjective: * Chief Complaints: * 1 . Screening,hx polyps. * Medical History: Objective: * Vitals: Assessment: Plan: * Treatment: * * The named appointment provid er may or may not be the originator of this progress note, and it is not deemed complete until electronically signed by the appointment provider. Sign off status: Pending * Provider: Vj Adams MD Date: 0 08/03/2024 Generated for Mario Alberto morris/Danielito/eTmaurasmitting on: 04/29/2024 02:08 PM EST
--- OUTSIDE RECORDS SUMMARY | 2024-10-31 04:20 | XMS_ITS ---
Author Organization [facility] Address [address] [place] [address] Care Team Providers Care Forepart Reducer Name Role Phone Jina (RETIRED) Yan MANCILLA Primary Care Provide Solo Gómez [phone] REASON FOR VISIT screening,hx polyps Encounters Encounter Location Date Provider Diagnosis [facility] [place] [address] [place], [place] [phone] 10/31/2024 Solo Adams Plan Of Treatment No Information Progress Notes * PONCHO MILLERADOB: 2 (74 yo F)Acc No.[id number]:10/31/2024 COLON WITH MAC Patient: CHUY PENALOZA Provider: Vj Adams MD :1950 A ge:73 Y S ex:Female Date:10/31/2024 Address:[address] [place], [place] Pcp:Yan Muro (RETIRED )MD Subjective: * Chief [...] Date: 0 10/31/2024 Generated for Mario Alberto morris/Danielito/eTransmitting on: 04/29/2024 02:08 PM EST
--- OUTSIDE RECORDS SUMMARY | 2025-01-09 08:10 | XMS_ITS ---
Author Organization [facility] Address [address] [place] [address] Care Team Providers Care Loan Assistant Name Role Phone Jina (RETIRED) Yan MANCILLA Primary Care Provide Solo Gómez [phone] REASON FOR VISIT screening colonoscopy Encounters Encounter Location Date Provider Diagnosis [facility] Outpatient [address] [place], [place] [phone] 01/09/2025 Solo Adams Plan Of Treatment No Information Progress Notes * PONCHO MILLERADOB: 2 (74 yo F)Acc No.[id number]:01/09/2025 COLON WITH MAC Patient: CHUY PENALOZA Provider: Vj Adams MD :1950 A ge:74 Y S ex:Female Date:01/09/2025 Address:[address] [place], [place] Pcp:Yan Muro (RETIRED )MD Subjective: * Chief Complaints: * 1 . Screening colonoscopy. * Medical History: Objective: * Vitals: Assessment: Plan: * Treatment: * * The named appointment provid er may or may not be the originator of this progress note, and it is not deemed complete until electronically signed by the appointment provider. Sign off status: Pending * Provider: Vj Adams MD Date: 0 01/09/2025 Generated for Mario Alberto morris/Danielito/eTmaurasmitting on: 04/29/2024 02:08 PM EST
--- OUTSIDE RECORDS SUMMARY | 2025-02-27 14:08 | XMS_ITS | Clinical Summary ---
Author Organization [facility] Address [facility]ly [facility] [employer] [address] [address] Phone Care Team Providers Care Industrial Cook Name Role Phone Yan Muro MD Primary [...] AM EDT Office Visit [facility] [address] [place] [address] Makayla Mckee MD [address] [place] [phone] [email or web address] Health Maintenance Due Date Last Done [...] this topic Medical Devices Implanted Type Area Resident Surgeon Device Identifier Shelf Expiration Date Model / Serial / Lot Tutoplast Procssd-Pericar d 1.0cm X 1.0cm - [id number] Implanted:Qty: 1 on 09/14/2019 by Jose Healy MD at [facility] Graft Right: [employer] 09/14/2019 / / [id number] Tutoplast Procssd-Pericar d 1.0cm X 1.0cm - [id number] Implanted:Qty: 1 on 01/08/2016 by Jose Healy MD at [facility] Left: [employer] 03/26/2020 / / [id number] Procedures Procedure Name Priority Date/Time Associated Diagnosis Comments TSH WITH REFLEX Routine 07/29/2024 12:32 PM EDT Postablative hypothyroidism from Last 3 Months or Most Recently Relevant to Health Maintenance Results * TSH with reflex (07/29/2024 12:32 PM EDT) TSH 2.04 0.27 - 4.20 uIU/mL [facility] Blood 07/29/2024 12:3 2 PM EDT 07/29/2024 12:37 PM EDT us Makayla Mckee MD LAB BLOOD BKR ORDERABL ES Final Result [address] [address] from Last 3 Months or Most Recently Relevant to Health Maintenance Insurance [employer] MEDEX SUPPLEMENT MEDICARE PART A & B [employer] MEDEX SUPPLEMENT MEDICARE PART A & B [employer] MEDEX SUPPLEMENT MEDICARE PART A & B Member Subscriber Plan / Payer (Ef fective 2017-Present) Name:Joanie Franco Member ID:[id number] Relation to Subscriber:Self Name:Joanie Franco Subscriber ID:[id number] Payer ID:[id number] Group ID:Not on file Type:Medicare Address: [facility] [employer] [facility] [address] [place], [place] [id number] [employer] MEDEX SUPPLEMENT MEDICARE PART A & B [employer] MEDEX SUPPLEMENT MEDICARE PART A & B Member Subscriber Plan / Payer ( fective 2017-Present) Name:Joanie Franco Member ID:[id number] Relation to Subscriber:Self Name:Joanie Franco Subscriber ID:[id number] Payer ID:[id number] Group ID:Not on file Type:Medicare Address: [employer] [address] [facility] MEDEX SUPPLEMENT MEDICARE PART A & B Advance Directives For more information, please contact: [phone] (9AM - 5PM Teresa/[facility], Thursday-Thursday) Documents on File Type Date Recorded Patient Radiation Protection Engineer Expl anation Healthcare Proxy 10/10/2015 2:15 PM Care Teams Industrial Cook Relationship Specialty Start Date End Date Yan Muro MD [address] [place] [address] [place] [address] PCP - General Internal Medicine 06/12/23 Additional Source Comments The information contained in this document represents components of the legal health record. It is not the complete legal health record.[facility]
--- OUTSIDE RECORDS SUMMARY | 2025-02-27 14:08 | XMS_ITS | Patient Health Record ---
Author Organization [facility] Address [address] [place] [address] Care Team Providers Care Dike Supervisor Name Role Phone Jina (RETIRED) Yan MANCILLA Primary Care Provide r Unavailable Solo Adams Unavailable [phone] Allergies No Known Allergies Results Component Value Reference Range Notes Pathology (Not yet reviewed by provider) Interpretation: Performing Lab:[facility], [address] [place] [id number] Notes/Report: Reason For Referral No Information Medications [...] Status Risk Notes Problem Irritable bowel syndrome (16433440) Irritable bowel syndrome (K58.9) Active confirmed Problem Screening for malignant neoplasm of colon (969718396) Encounter for screening for malignant neoplasm of colon (Z12.11) Active confirmed Problem Flatulence, eructation and gas pain (741446379) Bloating (R14.0) Active confirmed Problem Constipation (49059725) Constipation (K59.00) Active confirmed Problem Kearney's esophagus (007856398) Kearney's esophagus without dysplasia (K22.70) Active confirmed Problem Polyp of colon (59616114) Polyp of colon (K63.5) Active confirmed Problem Hiatal hernia (24056847) Hiatal hernia (K44.9) Active confirmed Problem History of adenomatous polyp of colon (606029360) Hx of adenomatous colonic polyps (Z86.010) Active confirmed Problem Gastroesophageal reflux disease (108676459) Gastroesophageal reflux disease, unspecified whether esophagitis present (K21.9) Active confirmed Vital Signs Temperature 97.5 degrees Fahrenheit 04/26/2024 Blood pressure diastolic 00 mm Hg 04/26/2024 Height 64.5 in 04/26/2024 Blood pressure systolic 000 mm Hg 04/26/2024 Weight 142 lbs 04/26/2024 BMI 24.00 kg/m2 04/26/2024 Encounters Encounter Location Date Provider Diagnosis [facility] [address] [place] [id number] 01/09/2025 Solo Adams [facility] [address] [facility] [address] [place] [phone] 04/26/2024 Solo Adams Irritable bowel syndrome K58.9 ; Hx of adenomatous colonic polyps Z86.010 and Encounter for screening for malignant neoplasm of colon Z12.11 [facility] [address] [address] 08/01/2024 Solo Adams [facility] [address] [place] [phone] 10/25/2024 Solo Adams [facility] [address] [address] 01/04/2025 Solo Adams Assessments Encounter Date Diagnosis [...] [place] [address] [place] [address] [id number] CHUY MILLER Self - patient is the insured MED[employer] ATTN CLAIMS [address] [place] [address] [id number] CHUY MILLER Self - patient is the [...] Kearney's mucosa Graves' disease SVT-on metoprolol Denies MA,DM,CVA,Lung disease,renal dise ase Normal duodenal biopsies in [...]
== END 2025-02-27 11:12 | disposition home or self-care (01) ==
LOC: HO.HMGAL 11:10
PROVIDERS: PCP Internal Medicine; Visit Provider Registered Nurse Emergency
DX: J30.89 Other allergic rhinitis (principal)
CPT/HCPCS: 95117; 95165

== ENCOUNTER 2025-03-13 11:21 | Outpatient (AMB) | payer MEDICARE, SELFPAY | END 2025-03-13 11:21 | disposition home or self-care (01) | LOC: HO.HMGAL 11:21 | PROVIDERS: PCP Internal Medicine; Visit Provider Registered Nurse Emergency | DX: J30.89 Other allergic rhinitis (principal) | CPT/HCPCS: 95117; 95165 ==

== ENCOUNTER 2025-03-14 13:06 | Outpatient (AMB) | payer MEDICARE, SELFPAY ==
[2025-03-14 13:17] VITALS: BP 120/80; PULSE 73; BMI 23.1
--- NOTE | 2025-03-14 13:17 | MHC.OFFVIS ---
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 Intake Note: New patient dx palpitations this has been a life long issue Phlebotomist Required: No Allergies Seasonal Allergies Allergy (Unknown, Verified 02/21/25 13:50) Unknown Medication List - Last Reconciled 03/14/25 by Miguel Serrano MD amoxicillin 2,000 mg (4 x 500 mg) PO ONCE PRN aspirin 81 mg PO DAILY calcium carbonate 500 mg PO .3x a week cyclobenzaprine 5 mg PO BEDTIME PRN diclofenac sodium 1% 4 grams topical QID fexofenadine (Marlen Allergy) 180 mg PO DAILY ibuprofen 800 mg PO Q8H lactobacillus combination no.4 (Probiotic) 3,000 mmu cells PO DAILY levothyroxine mcg PO metoprolol tartrate 25 mg PO BID cekexitf-dgs-GB-lycopen-lutein 0.4 mg-300 mcg- 250 mcg (Centrum Silver) 1 tab PO DAILY HPI Comments Details: I was consulted to see Joanie in cardiology consultation today for symptoms of palpitations and chest pressure. Patient is 74 year female says in her late 30s she was diagnose with mitral valve prolapse and cardiac arrhythmias with SVT when she had fast heart rate. Since then she has been on metoprolol therapy in his overall done well. She is not a best historian. 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 She is pretty active in his day-to-day activity. She recently had another episode and ended up going to [facility] although EKGs done there initially did not show any evidence of SVT. She has symptoms of rapid heart rate associated with chest pressure. Symptoms are similar to and has happen in the past similar to her SVT. She also has symptoms of PVCs and PACs which she feels has fluttering in his chest. Since then she had a myocardial perfusion imaging which suspect apical ischemia. She had echocardiogram which shows no evidence of mitral valve prolapse with normal LV ejection fraction. Holter monitor shows normal sinus rhythm without any significant SVT with a occasional PVCs. She says she feels his PVCs but these are not very bothersome to her. She is referred here because of abnormal stress test and chest pressure. Denies any clear exertional chest tightness or pressure. She says during this episodes of blood pressure very high. Since been increase her metoprolol she has been doing well. [facility] Medical History Seasonal allergies Hypothyroidism Hx of hypoglycemia Hx of supraventricular tachycardia Hiatal hernia GERD (gastroesophageal reflux disease) IBS (irritable bowel syndrome) Cataract Arthritis Graves disease Surgical History Hx of bilateral cataract extraction (~2017) Hx of hemorrhoidectomy (~2018) S/P DIAZ (total abdominal hysterectomy) History of esophagogastroduodenoscopy (EGD) (~2014) Hx of colonoscopy (~2018) History of bilateral oophorectomy H/O eye surgery Hx of tonsillectomy H/O hysterectomy for benign disease Family History Sister Uterine cancer Mother No problems noted. Father No problems noted. Social History Household Members: Spouse Housing: House Alcohol intake: never Patient Tobacco Use Status: Never used Tobacco Tobacco use type: Cigarette e-Cigarette/Vaping Use: Never Used service: No Current occupational status: employed Cognitive needs: No Hearing needs: No Vision needs: Yes (reading glasses) Review of Systems Const Denies chills, Denies daytime sleepiness, Denies fatigue, Denies fever(s), Denies frequent falls, Denies poor appetite, Denies snoring, Denies stops breathing during sleep, Denies weakness, Denies weight gain and Denies weight loss Eyes Denies loss of vision ENT Denies dizziness and Denies hearing loss Card Reports chest pain, Denies claudication, Denies leg edema, Denies lightheadedness, Reports palpitations, Denies dyspnea, Denies dyspnea on exertion and Denies orthopnea Resp Denies cough, Denies excessive phlegm production, Denies dyspnea, Denies dyspnea on exertion, Denies snoring and Denies wheezing GI Denies abdominal pain, Denies hematochezia, Denies change in bowel habits, Denies nausea and Denies vomiting Denies urinary frequency and Denies dysuria Musc Denies arthralgias, Denies muscle weakness and Denies numbness Skin/Breast Denies nail changes and Denies rash Neuro Denies Abnormal speech present, Denies dizziness, Denies frequent falls, Denies loss of vision, Denies memory loss, Denies numbness and Denies weakness Psych Denies depression and Denies memory loss Endo Denies fatigue and Reports palpitations Von/Lymph Reports easy bruising and Reports other (anemia) Aller/Immun Denies wheezing Physical Exam Vital Signs: Last Vital Signs Pulse 73 03/14/25 13:17 BP 120/80 03/14/25 13:17 BMI result Body Mass Index 23.1 Const General: cooperative, comfortable, no acute distress, alert, awake and Physically active Nutritional Appearance: average body habitus Orientation/consciousness: patient oriented x3 Limitations: no limitations HEENT Head: Yes normocephalic and Yes atraumatic Neck Neck: Yes trachea midline, Yes supple and Yes no JVD Resp Effort & Inspection: normal respiratory effort Auscultation: clear to auscultation bilaterally Cardio Jugular venous distension: no JVD Palpation: normal PMI Rate: regular rate Rhythm: regular rhythm Heart sounds: S1 normal heart sound present, S2 normal heart sound present, no click, no gallops, no murmurs and no rubs GI Auscultation: normal bowel sounds Skin General skin exam: no rashes or lesions noted Neuro General: patient oriented x3 and no focal motor deficits Speech: No Abnormal speech present Motor exam (neuro): Tremors during motor activity present Extrem General: Yes no clubbing, cyanosis or edema Psych Appearance: grossly normal Office Procedures EKG Details: EKG shows poor baseline with normal sinus rhythm with normal EKGs [id number], Complete Assessment & Plan Assessment & Plan (1) Chest pain: Code(s): R07.9 - Chest pain, unspecified Category: Medical Qualifiers: Chest pain type: unspecified Qualified Code(s): R07.9 - Chest pain, unspecified Plan: Chest pain episode along with the SVT with abnormal nuclear stress test suggestive of possible apical ischemia. She has multiple risk factors for coronary artery disease. This needs to be further evaluated with a coronary CTA. She is currently not having any active symptoms. Recommend to avoid sudden strenuous activity. Otherwise continue low-dose aspirin therapy. Continue blood pressure control which is currently well optimized. Target goal LDL definitely less than 100 mg/dL. (2) Palpitations: Code(s): R00.2 - Palpitations Category: Medical Plan: Palpitations which could represent SVT. Although her own EKGs device did not record any fast heart rate. Holter monitor has been on with isolated PVCs. She is aware of PVCs in his not very symptomatic from that perspective. Otherwise since increasing metoprolol she has not had any rapid heart rate. We discussed about vagal maneuvers. We discussed about continue to monitor EKGs when she has symptoms. If she has recurrent SVT on metoprolol therapy can consider ablation therapy. She has no evidence of mitral valve prolapse and this was discussed with her by recent echocardiogram and discussed about the change in criteria to diagnose mitral valve prolapse by echocardiography. Either way she does not require antibiotic prophylaxis. Stress mitigation strategies were discussed. Will follow up in the clinic in 1 year's time, sooner PRN. Thank you for allowing me to partake in her care Orders: Orders CT Cardiac Coronary Angio 1 Week R07.9 - Chest pain, unspecified Coding Level of Care Code New Pt Level 4 (79427) Complex EM visit Add On G2211 Diagnoses Chest pain, unspecified type R07.9 Chest pain type: unspecified Palpitations R00.2 CPT Codes EKG - CPT: 38946-[id number], Complete ([id number])
--- OUTSIDE RECORDS SUMMARY | 2025-03-15 04:48 | XMS_ITS | Clinical Summary ---
Author Organization [facility] Address [facility] Graph Alchemist [address] [address] Phone Care Team Providers Care Fisher Reef Net Name Role Phone Yan Muro MD Primary [...] AM EDT Office Visit [facility] [address] [place] [address] Makayla Mckee MD [address] [place] [phone] [email or web address] Health Maintenance Due Date Last Done [...] 2024 01/19/2020, 2016 COVID-19 VACCINE (2 - 2024- season) 2024 07/10/2020 TSH LEVEL 07/29/2025 07/29/2024, 08/04/2023, 11/16/2023, Additional history exists RSV VACCINE (1 - 1-dose 75+ series) 12/04/2026 SMOKING STATUS SCREENING (Once After 26 Yrs) Completed 07/29/2024 HEPATITIS A VACCINES Aged Out No long er eligible based on patient's age to complete this topic HIB VACCINES Aged Out No longer eligi ble based on patient's age to complete this topic IPV VACCINES Aged Out No longer eligi ble based on patient's age to complete this topic MENINGOCOCCAL VACCINES (ACWY) Aged Out No longer eligible based on patient's age to complete this topic MENINGOCOCCAL VACCINES (B) Aged Out N o longer eligible based on patient's age to complete this topic Medical Devices Implanted Type Area Fbi Special Agent Device Identifier Shelf Expiration Date Model / Serial / Lot Tutoplast Procssd-Pericar d 1.0cm X 1.0cm - [id number] Implanted:Qty: 1 on 09/14/2019 by Jose Healy MD at [facility] Graft Right: [employer] 09/14/2019 / / [id number] Tutoplast Procssd-Pericar d 1.0cm X 1.0cm - [id number] Implanted:Qty: 1 on 01/08/2016 by Jose Healy MD at [facility] Left: [employer] 03/26/2020 / / [id number] Procedures Procedure Name Priority Date/Time Associated Diagnosis Comments TSH WITH REFLEX Routine 07/29/2024 12:32 PM EDT Postablative hypothyroidism from Last 3 Months or Most Recently Relevant to Health Maintenance Results * TSH with reflex (07/29/2024 12:32 PM EDT) TSH 2.04 0.27 - 4.20 uIU/mL [facility] Blood 07/29/2024 12:3 2 PM EDT 07/29/2024 12:37 PM EDT Makayla Mckee MD LAB BLOOD BKR ORDERABL ES Final Result [facility] [address] [place] [address] from Last 3 Months or Most Recently Relevant to Health Maintenance Insurance [employer] CROSS MEDEX SUPPLEMENT MEDICARE PART A & B [employer] MEDEX SUPPLEMENT MEDICARE PART A & B [employer] MEDEX SUPPLEMENT MEDICARE PART A & B [employer] MEDEX SUPPLEMENT MEDICARE PART A & B [employer] MEDEX SUPPLEMENT MEDICARE PART A & B [employer]UE [employer] MEDEX SUPPLEMENT MEDICARE PART A & B Advance Directives For more information, please contact: [phone] (9AM - 5PM [facility], Thursday-Thursday) Documents on File Type Date Recorded Patient Dice Maker Expl anation Healthcare Proxy 10/10/2015 2:15 PM Care Teams Fisher Reef Net Relationship Specialty Start Date End Date Yan Muro MD [address] [place] [address] [place] [address] PCP - General Internal Medicine 06/12/23 Additional Source Comments The information contained in this document represents components of the legal health record. It is not the complete legal health record.[facility]
== END 2025-03-14 13:54 | disposition home or self-care (01) ==
LOC: HO.HCS 13:07
PROVIDERS: PCP Internal Medicine; Visit Provider Internal Medicine Cardiovascular Disease
DX: R07.9 Chest pain, unspecified (principal); R00.2 Palpitations
CPT/HCPCS: 93010; 99214; G2211

== ENCOUNTER → 2025-03-14 13:06 | Outpatient (BNVA) | payer MEDICARE, SELFPAY | PROVIDERS: PCP Internal Medicine; Visit Provider Internal Medicine Cardiovascular Disease | DX: R07.9 Chest pain, unspecified (principal); R00.2 Palpitations | CPT/HCPCS: 93005; 99212 ==

== ENCOUNTER 2025-03-16 14:21 | Outpatient (REF) | payer MEDICARE, SELFPAY ==
--- OUTSIDE RECORDS SUMMARY | 2024-08-03 04:30 | XMS_ITS ---
Author Organization [facility] Address [address] [place] [address] Care Team Providers Care And Drying Supervisor Cooking Casing Name Role Phone Jina (RETIRED) Yan MANCILLA Primary Care Provide Solo Gómez [phone] REASON FOR VISIT screening,hx polyps Encounters Encounter Location Date Provider Diagnosis [facility] [place] [address] [place], [place] [phone] 08/03/2024 Solo Adams Plan Of Treatment No Information Progress Notes * PONCHO MILLERADOB: 2 (74 yo F)Acc No.[id number]:08/03/2024 COLON WITH MAC Patient: CHUY PENALOZA Provider: Vj Adams MD :1950 A ge:73 Y S ex:Female Date:08/03/2024 Address:[address] [place], [place] Pcp:Yan Muro (RETIRED )MD Subjective: * Chief Complaints: * S creening,hx polyps * The named appointment provid er may or may not be the originator of this progress note, and it is not deemed complete until electronically signed by the appointment provider. Sign off status: Pending * Provider: Vj Adams MD Date: 0 08/03/2024 Generated for Mario Alberto morris/Danielito/Osmarsmitting on: 05/16/2024 07:45 PM EST
--- OUTSIDE RECORDS SUMMARY | 2024-10-31 04:20 | XMS_ITS ---
Author Organization [facility] Address [address] [place] [address] Care Team Providers Care Birth Attendant Name Role Phone Jina (RETIRED) Yan MANCILLA Primary Care Provide Solo Gómez [phone] REASON FOR VISIT screening,hx polyps Encounters Encounter Location Date Provider Diagnosis [facility] [place] [address] [place], [place] [phone] 10/31/2024 Solo Adams Plan Of Treatment No Information Progress Notes * PONCHO MILLERADOB: 2 (74 yo F)Acc No.[id number]:10/31/2024 COLON WITH MAC Patient: CHUY PENALOZA Provider: Vj Adams MD :1950 A ge:73 Y S ex:Female Date:10/31/2024 Address:[address] [place], [place] Pcp:Yan Muro (RETIRED )MD Subjective: * Chief Complaints: * S creening,hx polyps * The named appointment provid er may or may not be the originator of this progress note, and it is not deemed complete until electronically signed by the appointment provider. Sign off status: Pending * Provider: Vj Adams MD Date: 0 10/31/2024 Generated for Mario Alberto morris/Danielito/eTmaurasmitting on: 05/16/2024 07:45 PM EST
--- OUTSIDE RECORDS SUMMARY | 2025-01-09 08:10 | XMS_ITS ---
Author Organization [facility] Address [address] [place] [address] Care Team Providers Care Blind Lacer Name Role Phone Jina (RETIRED) Yan MANCILLA Primary Care Provide Solo Gómez Unavailable [phone] REASON FOR VISIT screening colonoscopy Encounters Encounter Location Date Provider Diagnosis [facility] [place] [address] [place] [phone] 01/09/2025 Solo Adams Plan Of Treatment No Information Progress Notes * PONHCO MILLERADOB: 2 (74 yo F)Acc No.[id number]:01/09/2025 COLON WITH MAC Patient: CHUY PENALOZA Provider: Vj Adams MD :1950 A ge:74 Y S ex:Female Date:01/09/2025 Address:[address] [place], [place] Pcp:Yan Muro (RETIRED )MD Subjective: * Chief Complaints: * S creening colonoscopy Billing Information: * Procedure Codes: * The named appointment provid er may or may not be the originator of this progress note, and it is not deemed complete until electronically signed by the appointment provider. Sign off status: Pending * Provider: Vj Adams MD Date: 0 01/09/2025 Generated for Mario Alberto morris/Danielito/eTransmitting on: 05/16/2024 07:45 PM EST
--- NOTE | 2025-03-16 14:25 | EMG_ITS ---
Chief complaint: A year and a half of right shoulder pain, describes numbness/tingling on the upper arm. She also has tremors on the right hand/upper extremity. Reason for referral: Evaluate for cervical radiculopathy Referred by: Dr. Russo Procedure done: Right upper extremity NCS/EMG Precautions and/or limitations: None The limb temperature was monitored continuously and remained between 32-36 degrees C during the performance of the NCS. Nerve Conduction Studies Anti Sensory Summary Table ?Stim Site NR Onset (ms) Norm Onset (ms) Peak (ms) Norm Peak (ms) O-P Amp (?V) Norm O-P Amp Site1 Site2 Delta-0 (ms) Dist (cm) Jesse (m/s) Norm Jesse (m/s) Right Median Anti Sensory (2nd Digit) Wrist ? 2.4 3.4 <3.6 22.7 >10 Wrist 2nd Digit 2.4 14.0 58 Right Radial Anti Sensory (Thumb) Forearm ? 1.6 2.0 <3.1 20.7 Forearm Thumb 1.6 10.0 63 Right Ulnar Anti Sensory (5th Digit) Wrist ? 2.4 3.2 <3.7 23.2 >15.0 Wrist 5th Digit 2.4 14.0 58 Motor Summary Table ?Stim Site NR Onset (ms) Norm Onset (ms) O-P Amp (mV) Norm O-P Amp iAmp (mV) Amp (1st) (%) Site1 Site2 Delta-0 (ms) Dist (cm) Jesse (m/s) Norm Jesse (m/s) Right Median Motor (Abd Poll Brev) Wrist ? 3.3 <3.9 9.1 >4.5 10.8 100.0 Elbow Wrist 3.1 19.0 61 >45 Elbow ? 6.4 9.0 11.1 98.9 Right Ulnar Motor (Abd Dig Minimi) Wrist ? 2.8 <3.0 8.7 >5 10.1 100.0 B Elbow Wrist 3.1 16.0 52 >45 B Elbow ? 5.9 8.0 9.5 92.0 A Elbow B Elbow 1.4 10.0 71 >45 A Elbow ? 7.3 8.6 10.3 98.9 EMG ?Side Muscle Nerve Root Ins Act Fibs Psw Amp Dur Poly Recrt Int Pat Comment Right 1stDorInt Ulnar C8-T1 Nml Nml Nml Nml Nml 0 Nml Complete Right FlexCarRad Median C6-7 Nml Nml Nml Nml Nml 0 Nml Complete Right Biceps Musculocut C5-6 Nml Nml Nml Nml Nml 0 Nml Complete Right Triceps Radial C6-7-8 Nml Nml Nml Nml Nml 0 Nml Complete Right Deltoid Axillary C5-6 Nml Nml Nml Nml Nml 0 Nml Complete Paraspinal EMG ?Side Muscle Nerve Root Ins Act Fibs Psw Comment Right Cervical Upper Rami Nml Nml Nml Right Cervical Mid Rami Nml Nml Nml Right Cervical Lower Rami Nml Nml Nml FINDINGS: All motor and sensory nerves tested showed normal latencies, amplitudes and conduction velocities. Concentric needle EMG was performed in selected muscles of the right upper extremity and cervical paraspinals. Study did not reveal signs of electric abnormalities as shown in the table above. IMPRESSION: 1. This is a normal study. 2. There is no electrodiagnostic evidence for median neuropathy, ulnar neuropathy, brachial plexopathy, or cervical radiculopathy. Thank you for your kind referral. Caity Marino MD, JAMAAL Board Certified, [place] Board of Physical Medicine and Rehabilitation (ABPMR) Board Certified, [place] Board of Electrodiagnostic Medicine (ABEM) CODIN 53353 x 1 extremity MTDD
--- OUTSIDE RECORDS SUMMARY | 2025-03-16 19:45 | XMS_ITS | Clinical Summary ---
Author Organization [facility] Address [facility] [email or web address] [address] [address] Phone Care Team Providers Care Car Dumper Operator Helper Name Role Phone Yan Muro MD Primary [...] AM EDT Office Visit [facility] [address] [place] [address] Makayla Mckee MD [address] [place] [address] [email or web address] Health Maintenance Due Date Last Done [...] this topic Medical Devices Implanted Type Area Medical Imaging Technologist Device Identifier Shelf Expiration Date Model / Serial / Lot Tutoplast Procssd-Pericar d 1.0cm X 1.0cm - [id number] Implanted:Qty: 1 on 09/14/2019 by Jose Healy MD at [facility] Graft Right: [employer] 09/14/2019 / / [id number] Tutoplast Procssd-Pericar d 1.0cm X 1.0cm - [id number] Implanted:Qty: 1 on 01/08/2016 by Jose Healy MD at [facility] Left: [employer] 03/26/2020 / / [id number] Procedures Procedure Name Priority Date/Time Associated Diagnosis Comments TSH WITH REFLEX Routine 07/29/2024 12:32 PM EDT Postablative hypothyroidism from Last 3 Months or Most Recently Relevant to Health Maintenance Results * TSH with reflex (07/29/2024 12:32 PM EDT) TSH 2.04 0.27 - 4.20 uIU/mL [facility] Blood 07/29/2024 12:3 2 PM EDT 07/29/2024 12:37 PM EDT Makayla Mckee MD LAB BLOOD BKR ORDERABL ES Final Result [facility] [address] [place] [address] from Last 3 Months or Most Recently Relevant to Health Maintenance Insurance [employer] CROSS MEDEX SUPPLEMENT MEDICARE PART A & B [employer] MEDEX SUPPLEMENT MEDICARE PART A & B [employer] MEDEX SUPPLEMENT MEDICARE PART A & B [employer] MEDEX SUPPLEMENT MEDICARE PART A & B [employer] MEDEX SUPPLEMENT MEDICARE PART A & B [employer]UE [employer] MEDEX SUPPLEMENT MEDICARE PART A & B Advance Directives For more information, please contact: [phone] (9AM - 5PM [facility], Thursday-Thursday) Documents on File Type Date Recorded Patient Wash Rack Operator Expl anation Healthcare Proxy 10/10/2015 2:15 PM Care Teams Car Dumper Operator Helper Relationship Specialty Start Date End Date Yan Muro MD [address] [place] [address] [place] [address] PCP - General Internal Medicine 06/12/23 Additional Source Comments The information contained in this document represents components of the legal health record. It is not the complete legal health record.[facility]
--- OUTSIDE RECORDS SUMMARY | 2025-03-16 19:46 | XMS_ITS | Patient Health Record ---
Author Organization [facility] Address [address] [place] [address] Care Team Providers Care Hat Mender Name Role Phone Jina (RETIRED) Yan MANCILLA Primary Care Provide r Unavailable Solo Adams Unavailable [phone] Allergies No Known Allergies Results Component Value Reference Range Notes Pathology (Not yet reviewed by provider) Interpretation: Performing Lab:[facility], [address] [place] [phone] Notes/Report: Reason For Referral No Information Medications Medication SIG (Take, Route, Frequency, Duration) Notes Start Date End Date Status Biotin Active Metoprolol Succinate ER 25 MG Tablet Extended Release 24 Hour 12.5 in am 12.5 in pm tablet Orally Once a day Active Levothyroxine Sodium 125 MCG Tablet 1 tablet Orally Once a day Active Marlen Allergy 180 MG Tablet 1 tablet Orally Once a day Active Estradiol 0.0375 MG/24HR Patch Twice Weekly APPLY 1 PATCH TOPICALLY TWICE A WEEK. 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 Section Notes: Noinsmoker; no alcohol Noinsmoker; no alcohol Noinsmoker; no alcohol Nonsmoker; no alcohol Problems Problem Type SNOMED Code ICD Code Onset Dates Problem Status W/U Status Risk Notes Problem Irritable bowel syndrome (68995134) Irritable bowel syndrome (K58.9) Active confirmed Problem Screening for malignant neoplasm of colon (481118333) Encounter for screening for malignant neoplasm of colon (Z12.11) Active confirmed Problem Flatulence, eructation and gas pain (925434457) Bloating (R14.0) Active confirmed Problem Constipation (08729448) Constipation (K59.00) Active confirmed Problem Kearney's esophagus (173963218) Kearney's esophagus without dysplasia (K22.70) Active confirmed Problem Polyp of colon (76302624) Polyp of colon (K63.5) Active confirmed Problem Hiatal hernia (97602711) Hiatal hernia (K44.9) Active confirmed Problem History of adenomatous polyp of colon (307857704) Hx of adenomatous colonic polyps (Z86.010) Active confirmed Problem Gastroesophageal reflux disease (771791852) Gastroesophageal reflux disease, unspecified whether esophagitis present (K21.9) Active confirmed Vital Signs Temperature 97.5 degrees Fahrenheit 04/26/2024 Blood pressure diastolic 00 mm Hg 04/26/2024 Height 64.5 in 04/26/2024 Blood pressure systolic 000 mm Hg 04/26/2024 Weight 142 lbs 04/26/2024 BMI 24.00 kg/m2 04/26/2024 Encounters Encounter Location Date Provider Diagnosis [facility] [address] [place] [id number] 01/09/2025 Solo Adams [facility] [address] [facility] [address] [place] [phone] 04/26/2024 Solo Adams Irritable bowel syndrome K58.9 ; Hx of adenomatous colonic polyps Z86.010 and Encounter for screening for malignant neoplasm of colon Z12.11 [facility] [address] [phone] 08/01/2024 Solo Adams [facility] [address] [place] [address] [address] [place] [phone] 10/25/2024 Solo Adams [facility] [address] [place] [phone] 01/04/2025 Solo Adams Assessments Encounter Date Diagnosis [...] End Date MEDICARE OF [place] [address] [place] [address] [id number] CHUY MILLER Self - patient is the insured MEDEX ATTN CLAIMS [address] [place] [address] [id number] CHUY MILLER Self - patient is the [...] the hemorrhoid surgery Surgical History Surgery Date(Month/Year) DIAZ for endometriosis Eye surgery for the Graves' disease for tissue decompression Hemorrhoidectomy 05/2018 Cataract surgery-- both eyes 2018
== END 2025-03-16 14:22 | disposition home or self-care (01) ==
LOC: HO.NEURO 14:21
PROVIDERS: PCP Internal Medicine; Visit Provider Internal Medicine Rheumatology
DX: R20.0 Anesthesia of skin (principal); R20.2 Paresthesia of skin; M54.10 Radiculopathy, site unspecified
CPT/HCPCS: 95886; 95909

== ENCOUNTER → 2025-03-16 14:25 | Outpatient (BNV) | payer MEDICARE, SELFPAY | PROVIDERS: PCP Internal Medicine; Visit Provider Physical Medicine & Rehabilitation | DX: M54.10 Radiculopathy, site unspecified (principal) | CPT/HCPCS: 95886; 95909 ==

== ENCOUNTER 2025-03-27 13:37 | Outpatient (AMB) | payer MEDICARE, SELFPAY ==
--- OUTSIDE RECORDS SUMMARY | 2025-03-27 17:11 | XMS_ITS | Clinical Summary ---
Author Organization [facility] Address [facility] [employer] [address] [address] Phone Care Team Providers Care High Pressure Boiler Operator Name Role Phone Yan Muro MD Primary [...] AM EDT Office Visit [facility] [address] [place] [address] Makayla Mckee MD [address] [place] [phone] [email or web address] Health Maintenance Due Date Last Done [...] this topic Medical Devices Implanted Type Area Cook Apprentice Device Identifier Shelf Expiration Date Model / Serial / Lot Tutoplast Procssd-Pericar d 1.0cm X 1.0cm - [id number] Implanted:Qty: 1 on 09/14/2019 by Jose Healy MD at [facility] Graft Right: [employer] 09/14/2019 / / [id number] Tutoplast Procssd-Pericar d 1.0cm X 1.0cm - [id number] Implanted:Qty: 1 on 01/08/2016 by Jose Healy MD at [facility] Left: [employer] 03/26/2020 / / [id number] Procedures Procedure Name Priority Date/Time Associated Diagnosis Comments TSH WITH REFLEX Routine 07/29/2024 12:32 PM EDT Postablative hypothyroidism from Last 3 Months or Most Recently Relevant to Health Maintenance Results * TSH with reflex (07/29/2024 12:32 PM EDT) TSH 2.04 0.27 - 4.20 uIU/mL [facility] Blood 07/29/2024 12:3 2 PM EDT 07/29/2024 12:37 PM EDT Makayla Mckee MD LAB BLOOD BKR ORDERABL ES Final Result [facility] [address] [place] [address] from Last 3 Months or Most Recently Relevant to Health Maintenance Insurance [employer]OSS MEDEX SUPPLEMENT MEDICARE PART A & B [employer] MEDEX SUPPLEMENT MEDICARE PART A & B [employer] MEDEX SUPPLEMENT MEDICARE PART A & B [employer] MEDEX SUPPLEMENT MEDICARE PART A & B [employer] MEDEX SUPPLEMENT MEDICARE PART A & B [employer] MEDEX SUPPLEMENT MEDICARE PART A & B Advance Directives For more information, please contact: [phone] (9AM - 5PM [facility], Thursday-Thursday) Documents on File Type Date Recorded Patient Finisher Wallboard And Plasterboard Expl anation Healthcare Proxy 10/10/2015 2:15 PM Care Teams High Pressure Boiler Operator Relationship Specialty Start Date End Date Yan Muro MD [address] [place] [address] [place] [address] PCP - General Internal Medicine 06/12/23 Additional Source Comments The information contained in this document represents components of the legal health record. It is not the complete legal health record.[facility]
== END 2025-03-27 13:37 | disposition home or self-care (01) ==
LOC: HO.HMGAL 13:37
PROVIDERS: PCP Internal Medicine; Visit Provider Registered Nurse Emergency
DX: J30.89 Other allergic rhinitis (principal)
CPT/HCPCS: 95117; 95165

== ENCOUNTER 2025-03-31 10:18 | Outpatient (AMB) | payer MEDICARE, SELFPAY ==
[2025-03-31 10:23] VITALS: BMI 23.0
--- NOTE | 2025-03-31 10:23 | MHC.OFFVIS ---
Vital Signs 03/31/25 10:23 Height 5 ft 4.5 in Weight 136 lb BMI 23.0 Intake Visit Reasons: Left GSV RFA Wild Oyster Harvester Required: No Accompanied by: Self / Same As Patient Allergies Seasonal Allergies Allergy (Unknown, Verified 03/31/25 10:23) Unknown PFSH Medical History Seasonal allergies Hypothyroidism Hx of hypoglycemia Hx of supraventricular tachycardia Hiatal hernia GERD (gastroesophageal reflux disease) IBS (irritable bowel syndrome) Cataract Arthritis Graves disease Surgical History Hx of bilateral cataract extraction (~2017) Hx of hemorrhoidectomy (~2018) S/P DIAZ (total abdominal hysterectomy) History of esophagogastroduodenoscopy (EGD) (~2014) Hx of colonoscopy (~2018) History of bilateral oophorectomy H/O eye surgery Hx of tonsillectomy H/O hysterectomy for benign disease Family History Sister Uterine cancer Mother No problems noted. Father No problems noted. Social History Household Members: Spouse Housing: House Alcohol intake: never Patient Tobacco Use Status: Never used Tobacco Tobacco use type: Cigarette e-Cigarette/Vaping Use: Never Used service: No Current occupational status: employed Cognitive needs: No Hearing needs: No Vision needs: Yes (reading glasses) Physical Exam Vital Signs: BMI result Body Mass Index 23.0 Office Procedures Vascular Office Procedure Details Details: Diagnosis: Varicose veins with inflammation of Left leg Procedure: Endovenous radiofrequency ablation of the left great saphenous vein and left anterior saphenous vein of the lower extremity. Anesthesia: Local infiltration 5 cc, Tumescent 500 cc. Estimated Blood Loss: minimal Specimen: Varicose veins The patient was transferred to the procedure suite and the insufficient saphenous vein was mapped by ultrasound and diagrammed on the overlying skin. The depth and diameter of the vein(s) to be treated was documented. The varicose tributary veins and suitable access sites were identified and mapped as well. The patient was then positioned supine on the procedure table. The affected limb was prepped and draped in the usual sterile fashion. The RF catheter was placed on the sterile field, flushed and wiped down, prepared, and connected by a sterile cable. The patient was placed in supine position and local anesthesia was instilled in the skin overlying the access site. A skin incision was made overlying the identified and mapped great saphenous vein entry site. The vein was accessed using ultrasound guidance and the Seldinger technique, a guide wire was introduced through the needle, which was then exchanged over the guide wire for a 6F sheath, which was secured in place. The guide wire was removed and the sheath was flushed. The RF catheter was placed into the vein through the sheath and preferentially, imaging was used to place the catheter tip just inferior to the superficial epigastric vein to preserve normal physiological flow in that vein. Additionally, it was confirmed by ultrasound guidance that the catheter tip was also placed a minimum of 1.5cm distal to the saphenofemoral junction. After the RF catheter position was verified by ultrasound, tumescent anesthesia was infiltrated, under ultrasound guidance, precisely into the perivenous compartment along the entire length of vein from the entry site to the saphenofemoral junction until a halo of fluid was noted around the vein. The patient was then placed in supine position to further exsanguinate the superficial venous system. After RF catheter position was again confirmed with ultrasound imaging, and under direct external compression along the length of the heating element, RF energy was applied. The vein was segmentally ablated by heating a 8 cm segment and then indexing the catheter forward by 7.5 cm until the treatment length is completed. Device temperature was maintained at 120 plus or minus 5 degrees C with an initial power level of 40W dropping to below 20W for each treatment. Total vein length treated 12 cm Total cycles of RF 3 we then accessed the accessory saphenous vein in a similar fashion. This was at a below-knee location and brought more anteriorly. This terminated in the mid thigh. In a similar fashion we segmentally ablated 8 cm segments an indexed the catheter forward by 7.5 cm until the treatment length was completed. Total vein length was was 24 cm with total cycles of RF 3. Repeat ultrasound of the saphenous vein was performed, confirming successful treatment. The catheter and sheath were withdrawn and hemostasis established with direct pressure. After assuring hemostasis, the skin incision over the saphenous vein was closed with a bandage and a compression wrap, and/ or graduated compression stocking was applied from the level of the foot to the most proximal level of the thigh. 41636 - Endovenous RF, 1st Vein 39875 - RF Ablation, subsequent vein All charges added?: Procedure code (CPT) selection complete Assessment & Plan Assessment & Plan (1) Varicose veins of left lower extremity with inflammation: Comment: 03/31/2025 - left great and anterior saphenous vein radiofrequency ablation Code(s): I83.12 - Varicose veins of left lower extremity with inflammation Category: Medical Plan: see op note Coding Level of Care Code Procedure Only Diagnoses Varicose veins of left lower extremity with inflammation I83.12 CPT Codes Details - Vascular 1: 16235 - Endovenous RF, 1st Vein ([id number]) Details - Vascular 2: 12501 - RF Ablation, subsequent vein ([id number])
== END 2025-03-31 11:37 | disposition home or self-care (01) ==
LOC: HO.HVS 10:19
PROVIDERS: PCP Internal Medicine; Visit Provider Surgery Vascular Surgery
DX: I83.12 Varicose veins of left lower extremity with inflammation (principal)
CPT/HCPCS: 36475; 36476

== ENCOUNTER → 2025-03-31 10:18 | Outpatient (BNVA) | payer MEDICARE, SELFPAY | PROVIDERS: PCP Internal Medicine; Visit Provider Surgery Vascular Surgery | DX: I83.12 Varicose veins of left lower extremity with inflammation (principal) | CPT/HCPCS: 36475; 36476; J2003; J2004 ==

== ENCOUNTER 2025-04-10 11:26 | Outpatient (AMB) | payer MEDICARE, SELFPAY | END 2025-04-10 11:26 | disposition home or self-care (01) | LOC: HO.HMGAL 11:26 | PROVIDERS: PCP Internal Medicine; Visit Provider Registered Nurse Emergency | DX: J30.89 Other allergic rhinitis (principal) | CPT/HCPCS: 95117; 95165 ==

== ENCOUNTER 2025-04-12 12:35 | Outpatient (AMB) | payer MEDICARE, SELFPAY ==
--- OUTSIDE RECORDS SUMMARY | 2024-08-03 04:30 | XMS_ITS ---
Author Organization [facility] Address [address] [place] [address] Care Team Providers Care Branding Machine Tender Name Role Phone Jina (RETIRED) Yan MANCILLA Primary Care Provide Solo Gómez [phone] REASON FOR VISIT screening,hx polyps Encounters Encounter Location Date Provider Diagnosis [facility] Out[facility] [address] [place], [place] [phone] 08/03/2024 Solo Adams Plan Of Treatment No Information Progress Notes * PONCHO MILLERADOB: 2 (74 yo F)Acc No.[id number]:08/03/2024 COLON WITH MAC Patient: CHUY PENALOZA Provider: Vj Adams MD :1950 A ge:73 Y S ex:Female Date:08/03/2024 Address:[address] [place], [place] Pcp:Yan Muro (RETIRED )MD Subjective: * Chief Complaints: * S creening,hx polyps * The named appointment provid er may or may not be the originator of this progress note, and it is not deemed complete until electronically signed by the appointment provider. Sign off status: Pending * Provider: Vj Adams MD Date: 0 08/03/2024 Generated for Mario Alberto morris/Danielito/eTmaurasmitting on: 1 06/13/2024 04:46 PM EST
--- OUTSIDE RECORDS SUMMARY | 2024-10-31 04:20 | XMS_ITS ---
Author Organization [facility] Address [address] [place] [address] Care Team Providers Care Interactive Developer Name Role Phone Jina (RETIRED) Yan MANCILLA Primary Care Provide Solo Gómez [phone] REASON FOR VISIT screening,hx polyps Encounters Encounter Location Date Provider Diagnosis [facility] [place] [address] [place], [place] [phone] 10/31/2024 Solo Adams Plan Of Treatment No Information Progress Notes * PONCHO MILLERADOB: 2 (74 yo F)Acc No.[id number]:10/31/2024 COLON WITH MAC Patient: CHUY PENALOZA Provider: Vj Adams MD :1950 A ge:73 Y S ex:Female Date:10/31/2024 Address:[address] [place], [place] Pcp:Yan Muro (RETIRED )MD Subjective: * Chief Complaints: * S creening,hx polyps * The named appointment provid er may or may not be the originator of this progress note, and it is not deemed complete until electronically signed by the appointment provider. Sign off status: Pending * Provider: Vj Adams MD Date: 0 10/31/2024 Generated for Mario Alberto morris/Danielito/Osmarsmitting on: 06/13/2024 04:45 PM EST
--- OUTSIDE RECORDS SUMMARY | 2025-01-09 08:10 | XMS_ITS ---
Author Organization [facility] Address [address] [place] [address] Care Team Providers Care Plumbing Assembler Name Role Phone Jina (RETIRED) Yan MANCILLA Primary Care Provide Solo Gómez Unavailable [phone] REASON FOR VISIT screening colonoscopy Encounters Encounter Location Date Provider Diagnosis [facility] [place] [address] [place] [phone] 01/09/2025 Solo Adams Plan Of Treatment No Information Progress Notes * PONCHO MILLERADOB: 2 (74 yo F)Acc No.[id number]:01/09/2025 COLON WITH MAC Patient: CHUY PENALOZA Provider: Vj Adams MD :1950 A ge:74 Y S ex:Female Date:01/09/2025 Address:[address] [place], [place] Pcp:Yan Muro (RETIRED )MD Subjective: * Chief [...] Generated for Mario Alberto morris/Danielito/eTransmitting on: 1 06/13/2024 04:45 PM EST
[2025-04-12 12:44] VITALS: BP 116/80; PULSE 81; O2SAT 99; BMI 23.0
--- NOTE | 2025-04-12 12:44 | MHC.OFFVIS ---
Vital Signs 04/12/25 12:44 Height 5 ft 4.5 in Weight 136 lb 3.931 oz BMI 23.0 BP 116/80 Blood Pressure Location Rt brachial Position Sitting Pulse 81 Pulse Source Pulse Oximeter Pulse Oximetry (%) 99 Oxygen Delivery Method Room Air Intake Visit Reasons: 3months Intake Note: Patient presents for osteoarthritis follow up. Accompanied by: Self / Same As Patient Allergies Seasonal Allergies Allergy (Unknown, Verified 04/12/25 12:44) Unknown HPI HPI 3months: Details: Right shoulder pain reoccurred 2 months ago. She is having difficulty functioning with her shoulder. She continues to have radicular pain from her neck to her elbow. PFSH Medical History Seasonal allergies Hypothyroidism Hx of hypoglycemia Hx of supraventricular tachycardia Hiatal hernia GERD (gastroesophageal reflux disease) IBS (irritable bowel syndrome) Cataract Arthritis Graves disease Surgical History Hx of bilateral cataract extraction (~2017) Hx of hemorrhoidectomy (~2018) S/P DIAZ (total abdominal hysterectomy) History of esophagogastroduodenoscopy (EGD) (~2014) Hx of colonoscopy (~2019) History of bilateral oophorectomy H/O eye surgery Hx of tonsillectomy H/O hysterectomy for benign disease Family History Sister Uterine cancer Mother No problems noted. Father No problems noted. Social History Household Members: Spouse Housing: House Alcohol intake: never Patient Tobacco Use Status: Never used Tobacco Tobacco use type: Cigarette e-Cigarette/Vaping Use: Never Used service: No Current occupational status: employed Cognitive needs: No Hearing needs: No Vision needs: Yes (reading glasses) Physical Exam Vital Signs: Last Vital Signs Pulse 81 04/12/25 12:44 BP 116/80 04/12/25 12:44 Pulse Ox 99 04/12/25 12:44 Oxygen Delivery Method Room Air 04/12/25 12:44 BMI result Body Mass Index 23.0 Const Other: General: Comfortable Skin: No lesions seen MSK: Localized tenderness to the right subacromial region and anteriorly. Positive painful arc sign and López Paul testing. She has pain in bilateral shoulders with active range of motion. Right shoulder abduction 160 degrees. Left shoulder range of motion is full. No triggering observed. Office Procedures AMB Joint Injection/Aspiration Joint Injection/Aspiration Details: Right subacromial region Prep: site was prepped using aseptic technique Injected: 40 mg of, Kenalog, with 1 mL of and 1% plain lidocaine Procedure: Informed verbal consent was obtained. The patient tolerated the procedure well. Postprocedure protocol was discussed with patient. Primary Site: Right Shoulder Coding 79686 - Large joint Procedure code (CPT) selection complete Office Meds lidocaine (PF) 10 mg/mL (1 %) injection solution Performing Provider: Frank Russo MD Performing Location: [facility] Rheumatology-[facility] Administered by: Frank Russo MD on 04/12/25 13:06 Dose Route Admin Location Dispensed Lot Number Expiration Date [facility] Furniture Painter 1 mL Infiltration 2 mL [id number] 09/24/26 38837-694-46 [employer] Total Dispensed Waste 2 mL 50 % Kenalog 40 mg/mL suspension for injection Performing Provider: Frank Russo MD Performing Location: [facility] Rheumatology[place] Administered by: Elvi Nieves RN on 04/12/25 13:06 Dose Route Admin Location Dispensed Lot Number Expiration Date [facility] Furn[employer]ter 40 mg intrabursal 1 mL [id number] 10/24/26 [address]-5 [employer] Total Dispensed Waste 1 mL 0 % Assessment & Plan Assessment & Plan (1) Subacromial impingement of right shoulder: Comment: Recurrent. Rheumatology history. Temporary benefit with cortisone injection to subacromial region 08/2024, 12/2024. Failed conservative management with PT exercises, ibuprofen, and diclofenac gel. She did not tolerate meloxicam due to exacerbation of GERD. Code(s): M75.41 - Impingement syndrome of right shoulder Category: Medical Plan: Patient received right subacromial cortisone injection If pain returns, I will order MRI to rule out ligament injury requiring orthopedic surgery evaluation for repair Return to clinic in 3 months (2) Left trigger finger: Comment: left third finger. Resolved with cortisone injection from December 2024. Failed splinting and OT. Code(s): M65.30 - Trigger finger, unspecified finger Category: Medical Qualifiers: Trigger finger location: middle finger Qualified Code(s): M65.332 - Trigger finger, left middle finger Plan: Monitor clinically (3) Back pain with right-sided radiculopathy: Comment: Chronic radiculopathy involving right upper extremity. Unclear etiology. EMG right upper extremity was normal. We discussed workup and conservative management. Code(s): M54.10 - Radiculopathy, site unspecified Category: Medical Plan: C-spine x-ray ordered to evaluate for spinal pathology last visit. I recommended that she obtain x-ray PT ordered last visit. I encouraged her to call to schedule visit Return to clinic in 3 months (4) Low back pain: Comment: Due to myofascial strain from paraspinal muscles. Discussed conservative management. Code(s): M54.50 - Low back pain, unspecified Category: Medical Qualifiers: Back pain laterality: right Chronicity: chronic Sciatica presence: without sciatica Qualified Code(s): M54.50 - Low back pain, unspecified; G89.29 - Other chronic pain Plan: Continue to apply heat to back Try lidocaine patches PT ordered for myofascial release, TENs unit, back strengthening She will use cyclobenzaprine 5 mg q.h.s. prn back pain. We discussed side effects of long-term muscle relaxer use including dependence. She will try to use it only as needed when pain is uncontrolled Avoid oral NSAIDs and Tylenol in setting of mild transaminitis Return to clinic 3 months Orders: Orders AMB Joint Injection/Aspiration Today G89.29 - Other chronic pain, M25.511 - Pain in right shoulder Coding Level of Care Code Est Pt Level 4 (49869) Add On Problem Visit Only Diagnoses Subacromial impingement of right shoulder M75.41 Trigger middle finger of left hand M65.332 Trigger finger location: middle finger Back pain with right-sided radiculopathy M54.10 Chronic right-sided low back pain without sciatica M54.50; G89.29 Back pain laterality: right Chronicity: chronic Sciatica presence: without sciatica CPT Codes Coding - 19735 Large joint: 94403 - Large joint ([id number])
--- OUTSIDE RECORDS SUMMARY | 2025-04-12 16:46 | XMS_ITS | Clinical Summary ---
Author Organization [facility] Address [facility] Jade Magnet [address] [address] Phone Care Team Providers Care Ticket Worker Name Role Phone Yan Muro MD [...] Encounters Date Type Department Care Team Description 04/12/2025 Telephone [facility] [address] [place] [address] Makayla Mckee MD Labs Question from Last 3 Months Social History Tobacco [...] Description 08/03/2025 11:40 AM EDT Office Visit [facility] [address] [address] Makayla Mckee MD [address] [place] [address] [email or web address] Health Maintenance Due Date Last Done Comments [...] this topic Medical Devices Implanted Type Area Security System Administrator Device Identifier Shelf Expiration Date Model / Serial / Lot Tutoplast Procssd-Pericar d 1.0cm X 1.0cm - [id number] Implanted:Qty: 1 on 09/14/2019 by Jose Healy MD at [facility] Graft Right: [employer] 09/14/2019 / / [id number] Tutoplast Procssd-Pericar d 1.0cm X 1.0cm - [id number] Implanted:Qty: 1 on 01/08/2016 by Jose Healy MD at [facility] Left: [employer] 03/26/2020 / / [id number] Procedures Procedure Name Priority Date/Time Associated Diagnosis Comments TSH WITH REFLEX Routine 07/29/2024 12:32 PM EDT Postablative hypothyroidism from Last 3 Months or Most Recently Relevant to Health Maintenance Results * TSH with reflex (07/29/2024 12:32 PM EDT) TSH 2.04 0.27 - 4.20 uIU/mL [facility] Blood 07/29/2024 12:3 2 PM EDT 07/29/2024 12:37 PM EDT us Makayla Mckee MD LAB BLOOD BKR ORDERABL ES Final Result [address] [address] from Last 3 Months or Most Recently Relevant to Health Maintenance Insurance WADE [employer] MEDEX SUPPLEMENT MEDICARE PART A & B [employer] MED[employer] SUPPLEMENT MEDICARE PART A & B [employer] MED[employer] SUPPLEMENT MEDICARE PART A & B MEDICARE PART A & B [employer] MEDEX SUPPLEMENT MEDICARE PART A & B [facility] MEDEX SUPPLEMENT MEDICARE PART A & B Advance Directives For more information, please contact: [phone] (9AM - 5PM [facility], Thursday-Thursday) Documents on File Type Date Recorded Patient Special Officer Automat Expl anation Healthcare Proxy 10/10/2015 2:15 PM Care Teams Ticket Worker Relationship Specialty Start Date End Date Yan Muro MD [address] [place] [address] [place] [address] PCP - General Internal Medicine 06/12/23 Additional Source Comments The information contained in this document represents components of the legal health record. It is not the complete legal health record.[facility]
--- OUTSIDE RECORDS SUMMARY | 2025-04-12 16:46 | XMS_ITS | Patient Health Record ---
Author Organization [facility] Address [address] [place] [address] Care Team Providers Care Infection Control Rn Name Role Phone Jina (RETIRED) Yan MANCILLA Primary Care Provide r Solo Corey Unavailable [phone] Allergies No Known Allergies Results Component Value Reference Range Notes Pathology (Not yet reviewed by provider) Interpretation: Performing Lab:[facility], [address] [place] [id number] Notes/Report: Reason For Referral No Information Medications [...] Status Risk Notes Problem Irritable bowel syndrome (52648714) Irritable bowel syndrome (K58.9) Active confirmed Problem Screening for malignant neoplasm of colon (420906912) Encounter for screening for malignant neoplasm of colon (Z12.11) Active confirmed Problem Flatulence, eructation and gas pain (950119049) Bloating (R14.0) Active confirmed Problem Constipation (02627593) Constipation (K59.00) Active confirmed Problem Kearney's esophagus (816762150) Kearney's esophagus without dysplasia (K22.70) Active confirmed Problem Polyp of colon (75567645) Polyp of colon (K63.5) Active confirmed Problem Hiatal hernia (06858922) Hiatal hernia (K44.9) Active confirmed Problem History of adenomatous polyp of colon (579499860) Hx of adenomatous colonic polyps (Z86.010) Active confirmed Problem Gastroesophageal reflux disease (162982165) Gastroesophageal reflux disease, unspecified whether esophagitis present (K21.9) Active confirmed Vital Signs Temperature 97.5 degrees Fahrenheit 04/26/2024 Blood pressure diastolic 00 mm Hg 04/26/2024 Height 64.5 in 04/26/2024 Blood pressure systolic 000 mm Hg 04/26/2024 Weight 142 lbs 04/26/2024 BMI 24.00 kg/m2 04/26/2024 Encounters Encounter Location Date Provider Diagnosis [facility] [address] [place] [id number] 01/09/2025 Solo Adams [facility] [address] [place] [phone] 04/26/2024 Solo Adams Irritable bowel syndrome K58.9 ; Hx of adenomatous colonic polyps Z86.010 and Encounter for screening for malignant neoplasm of colon Z12.11 [facility] [address] [phone] 08/01/2024 Solo Adams [facility] [address] [place] [address] Drive [address] [place] [phone] 10/25/2024 Solo Adams [facility] [address] [place] [phone] 01/04/2025 Solo Adams Assessments Encounter Date Diagnosis [...] End Date MEDICARE OF [place] [address] [place] [address] [id number] CHUY MILLER Self - patient is the insured MEDEX ATTN CLAIMS [address] [place] [address] [phone] [id number] CHUY MILLER Self - patient is the [...] Kearney's mucosa Graves' disease SVT-on metoprolol Denies FL,DM,CVA,Lung disease,renal dise ase Normal duodenal biopsies in [...]
--- OUTSIDE RECORDS SUMMARY | 2025-04-12 16:46 | XMS_ITS | Encounter Summary ---
Author Organization [facility] Address [facility] Kiddy [address] [address] Phone Care Team Providers Care Corporate Real Estate Specialist Name Role Phone Yan Muro MD Primary Care Provider Reason for Visit * Reason Onset Date Comments Labs Question 04/12/2025 Encounter Details Date Type Department Care Team (Late st Contact Info) Description 04/12/2025 Telephone [facility] [address] [place] [phone] Makayla Mckee MD [address] [place] [phone] [email or web address] Labs Question Social History Tobacco Use Types Packs/Day Years [...] on file Sexual Orientation Not on file documented as of this encounter Progress Notes * Zuleyka Evans LPN - 04/12/2025 3:07 PM EST Call to pt ,left message for pt to call back * Emma Chi - 04/12/2025 10:47 AM EST Patient has not been feeling well, asking if they could have labs ordered? Please call [phone] 2:00pm today. documented in this encounter Plan of Treatment Upcoming Encounters Date Type Department Care Team (Late st Contact Info) Description 08/03/2025 11:40 AM EDT Office Visit [facility] [address] [place] [address] Makayla Mckee MD [address] [place] [address] [email or web address] documented as of this encounter Visit Diagnoses Not on filedocumented in this encounter Care Teams Corporate Real Estate Specialist Relationship Specialty Start Date End Date Yan Muro MD [address] [place] [address] [place] [address] PCP - General Internal Medicine 06/12/23 documented as of this encounter Additional Source Comments The information contained in this document represents components of the legal health record. It is not the complete legal health record.[facility]
== END 2025-04-12 13:19 | disposition home or self-care (01) ==
LOC: HO.RHES 12:37
PROVIDERS: PCP Internal Medicine; Visit Provider Internal Medicine Rheumatology
DX: M75.41 Impingement syndrome of right shoulder (principal); M25.511 Pain in right shoulder; M65.332 Trigger finger, left middle finger; M54.10 Radiculopathy, site unspecified; M54.50 Low back pain, unspecified; G89.29 Other chronic pain
CPT/HCPCS: 20610; 99214

== ENCOUNTER → 2025-04-12 12:35 | Outpatient (BNVA) | payer MEDICARE, SELFPAY | PROVIDERS: PCP Internal Medicine; Visit Provider Internal Medicine Rheumatology | DX: M75.41 Impingement syndrome of right shoulder (principal); M65.332 Trigger finger, left middle finger; M54.50 Low back pain, unspecified; G89.29 Other chronic pain | CPT/HCPCS: 20610; 99212; J2003; J3301 ==

== ENCOUNTER 2025-04-13 13:33 | Outpatient (REF) | payer MEDICARE, SELFPAY ==
--- NOTE | ~2025-04-13 | XR_ITS ---
EXAMINATION: XR CERVICAL SPINE 2-3 VIEWS HISTORY: M54.10 - Radiculopathy, site unspecified COMPARISON: There are no prior studies available for comparison. FINDINGS: AP, lateral, and open-mouth odontoid views of the cervical spine are submitted. Osseous mineralization is normal. Seven cervical vertebral bodies are identified maintaining normal height and alignment without evidence of fracture or subluxation. There is moderate degenerative disc disease at the C5-6 level, with disc space narrowing and osteophyte formation. The odontoid and lateral masses of C1 are intact. There is no prevertebral soft tissue swelling. XR/XR cervical spine 3V IMPRESSION: Moderate degenerative disc disease at C5-6. Electronically signed by: Solo Reza MD 04/13/2025 02:55 PM EST
== END 2025-04-13 13:34 | disposition home or self-care (01) ==
LOC: HO.XRAY 13:33
PROVIDERS: Absent Provider Internal Medicine Rheumatology; PCP Internal Medicine; Visit Provider Surgery Vascular Surgery
DX: I83.11 Varicose veins of right lower extremity with inflammation (principal); I83.12 Varicose veins of left lower extremity with inflammation; M54.10 Radiculopathy, site unspecified
CPT/HCPCS: 72040; 99212

== ENCOUNTER 2025-04-13 13:33 | Outpatient (AMB) | payer MEDICARE, SELFPAY ==
--- OUTSIDE RECORDS SUMMARY | 2024-08-03 04:30 | XMS_ITS ---
Author Organization [facility] Address [address] [place] [address] Care Team Providers Care Aerosol Supervisor Name Role Phone Jina (RETIRED) Yan MANCILLA Primary Care Provide Solo Gómez [phone] REASON FOR VISIT screening,hx polyps Encounters Encounter Location Date Provider Diagnosis [facility] Out[facility] [address] [place], [place] [phone] 08/03/2024 Solo Adams Plan Of Treatment No Information Progress Notes * PONCHO MILLERADOB: 2 (74 yo F)Acc No.[id number]:08/03/2024 COLON WITH MAC Patient: CHUY PENALOZA Provider: jV Adams MD :1950 A ge:73 Y S ex:Female Date:08/03/2024 Address:[address] [place], [place] Pcp:Yan Muro (RETIRED )MD Subjective: * Chief Complaints: * S creening,hx polyps * The named appointment provid er may or may not be the originator of this progress note, and it is not deemed complete until electronically signed by the appointment provider. Sign off status: Pending * Provider: Vj Adams MD Date: 0 08/03/2024 Generated for Mario Alberto morris/Danielito/Osmarsmitting on: 06/14/2024 05:40 PM EST
--- OUTSIDE RECORDS SUMMARY | 2024-10-31 04:20 | XMS_ITS ---
Author Organization [facility] Address [address] [place] [address] Care Team Providers Care Operations Support Analyst Name Role Phone Jina (RETIRED) Yan MANCILLA Primary Care Provide Solo Gómez [phone] REASON FOR VISIT screening,hx polyps Encounters Encounter Location Date Provider Diagnosis [facility] [place] [address] [place], [place] [phone] 10/31/2024 Solo Adams Plan Of Treatment No Information Progress Notes * PONCHO MILLERADOB: 2 (74 yo F)Acc No.[id number]:10/31/2024 COLON WITH MAC Patient: CHUY PENALOZA Provider: Vj Adams MD :1950 A ge:73 Y S ex:Female Date:10/31/2024 Address:[address] [place] [place], [place] Pcp:Yan Muro (RETIRED )MD Subjective: * Chief Complaints: * S creening,hx polyps * The named appointment provid er may or may not be the originator of this progress note, and it is not deemed complete until electronically signed by the appointment provider. Sign off status: Pending * Provider: Vj Adams MD Date: 0 10/31/2024 Generated for Mario Alberto morris/Danielito/Osmarsmitting on: 06/14/2024 05:39 PM EST
--- OUTSIDE RECORDS SUMMARY | 2025-01-09 08:10 | XMS_ITS ---
Author Organization [facility] Address [address] [place] [address] Care Team Providers Care County Manager Name Role Phone Jina (RETIRED) Yan MANCILLA Primary Care Provide Solo Gómez Unavailable [phone] REASON FOR VISIT screening colonoscopy Encounters Encounter Location Date Provider Diagnosis [facility] Out[place] [address] [place] [phone] 01/09/2025 Solo Adams Plan Of Treatment No Information Progress Notes * PONCHO MILLERADOB: 2 (74 yo F)Acc No.[id number]:01/09/2025 COLON WITH MAC Patient: CHUY PENALOZA Provider: Vj Adams MD :1950 A ge:74 Y S ex:Female Date:01/09/2025 Address:[address] [place], [place] Pcp:Yan Muro (RETIRED )MD Subjective: * Chief Complaints: * S creening colonoscopy Billing Information: * Procedure Codes: * The named appointment provid er may or may not be the originator of this progress note, and it is not deemed complete until electronically signed by the appointment provider. Sign off status: Pending * Provider: jV Adams MD Date: 0 01/09/2025 Generated for Mario Alberto morris/Danielito/eTransmitting on: 1 06/14/2024 05:40 PM EST
[2025-04-13 13:50] VITALS: BMI 23.0
--- NOTE | 2025-04-13 13:50 | MHC.OFFVIS ---
Vital Signs 04/13/25 13:50 Height 5 ft 4.5 in Weight 136 lb BMI 23.0 Intake Visit Reasons: 2 wk follow up Left GSV RFA 03/31/25 Intake Note: 2 week follow up Left GSV RFA 03/31/25. Pt states some tenderness over the bruising/treated area. Leg is overall feeling better. Electrical Mechanical Technician Required: No Accompanied by: Self / Same As Patient Allergies Seasonal Allergies Allergy (Unknown, Verified 04/13/25 14:03) Unknown HPI HPI 2 wk follow up Left GSV RFA 03/31/25: Details: Patient presents for follow-up status post left great saphenous vein ablation. This was done on 03/31/2025. She reports she is doing fairly well after that. Her venous cluster in the left medial thigh has decreased. Overall reports a good result with the left side. She is concerned about the right lower extremity. And now presents for routine follow-up. PFSH Medical History Seasonal allergies Hypothyroidism Hx of hypoglycemia Hx of supraventricular tachycardia Hiatal hernia GERD (gastroesophageal reflux disease) IBS (irritable bowel syndrome) Cataract Arthritis Graves disease Surgical History Hx of bilateral cataract extraction (~2017) Hx of hemorrhoidectomy (~2018) S/P DIAZ (total abdominal hysterectomy) History of esophagogastroduodenoscopy (EGD) (~2014) Hx of colonoscopy (~2018) History of bilateral oophorectomy H/O eye surgery Hx of tonsillectomy H/O hysterectomy for benign disease Family History Sister Uterine cancer Mother No problems noted. Father No problems noted. Social History Household Members: Spouse Housing: House Alcohol intake: never Patient Tobacco Use Status: Never used Tobacco Tobacco use type: Cigarette e-Cigarette/Vaping Use: Never Used service: No Current occupational status: employed Cognitive needs: No Hearing needs: No Vision needs: Yes (reading glasses) Review of Systems Const Reports as per HPI ENT Reports no additional complaints Card Denies chest pain, Denies chest pain at rest and Denies chest pain with activity Resp Denies chest congestion and Denies cough GI Reports no additional complaints Musc Details: pain over varicosities, aching of lower extremities, swelling, cramping, heaviness and tiredness, itching Denies abnormal gait Skin/Breast Reports pruritus and Denies wounds Neuro Reports no additional complaints and Denies abnormal gait Psych Denies no additional complaints Physical Exam Vital Signs: BMI result Body Mass Index 23.0 Const General: cooperative, healthy appearing and comfortable Orientation/consciousness: oriented to person, oriented to place and oriented to time Neck Carotids: no bruits Chest Chest palpation & inspection: normal inspection of the chest and normal palpation of entire chest wall Resp Effort & Inspection: normal respiratory effort and able to speak in complete sentences Cardio Rate: regular rate Heart sounds: S1 normal heart sound present and S2 normal heart sound present Peripheral pulses: Peripheral pulses 2+ throughout GI Inspection: Yes normal to inspection Skin Other: +2 edema, large rope-like varicosities greater than 4 mm cluster left thigh CEAP Classification C4 - skin color changes Ep - Etiology Primary As - superficial veins P - reflux General skin exam: dry skin Neuro General: oriented to person, oriented to place and oriented to time Extrem Right lower extremity: full ROM, normal capillary refill and edema Left lower extremity: full ROM, normal capillary refill and edema Psych Mental Status: mental status grossly normal Results Reviewed Results Reviewed: Brief summary of venous insufficiency testing is as follows: right great saphenous vein: Positive right small saphenous vein: negative right accessory vein: none present left great saphenous vein: Ablated left small saphenous vein: negative left accessory vein: none present Please note there is no evidence of any venous aneurysms or significant tortuosity Assessment & Plan Assessment & Plan (1) Varicose veins of left lower extremity with inflammation: Comment: 03/31/2025 - left great and anterior saphenous vein radiofrequency ablation Code(s): I83.12 - Varicose veins of left lower extremity with inflammation Category: Medical Plan: Doing well will require left leg microphlebectomy in the future. Continue with compression (2) Varicose veins of right lower extremity with inflammation: Code(s): I83.11 - Varicose veins of right lower extremity with inflammation Category: Medical Plan: This patient has varicose veins with inflammation. They continue to be a source of discomfort for the patient. The patient has tried conservative treatment with compression, leg elevation and exercise program for over 3 months time. They have been compliant with all treatment. This has provided minimal relief for the patient. I do not anticipate this course of treatment will alter the underlying etiology. The patient has been scheduled for lower extremity venous treatment inclusive of --- right great saphenous vein radiofrequency ablation. Risks, benefits, and complications of this procedure has been discussed in detail with the patient including but not limited to bleeding, infection, and the development of a DVT. The patient has demonstrated a clear understanding and has consented. We will schedule the patient as soon as possible. Thank you for allowing us to participate in this patient's care. If there are any questions or concerns please do not hesitate to contact us. Coding Level of Care Code Est Pt Level 4 (49601) Diagnoses Varicose veins of left lower extremity with inflammation I83.12 Varicose veins of right lower extremity with inflammation I83.11
--- OUTSIDE RECORDS SUMMARY | 2025-04-13 17:40 | XMS_ITS | Encounter Summary ---
Author Organization [facility] Address [facility] [employer] [address] [address] Phone Care Team Providers Care Marketing Technologist Name Role Phone Yan Muro MD Primary Care Provider Reason for Visit * Reason Onset Date Comments Labs Question 04/12/2025 Encounter Details Date Type Department Care Team (Late st Contact Info) Description 04/12/2025 Telephone [facility] Endocrinology Clinic [address] [place] [address] Makayla Mckee MD [address] [place] [phone] [email or web address] Labs Question Social History Tobacco Use [...] they could have labs ordered? Please call [phone] 2:00pm today. documented in this encounter Plan of Treatment Upcoming Encounters Date Type Department Care Team (Late st Contact Info) Description 08/03/2025 11:40 AM EDT Office Visit [facility] [address] [place] [address] Makayla Mckee MD [address] [place] [address] [email or web address] documented as of this encounter Visit Diagnoses Not on filedocumented in this encounter Care Teams Marketing Technologist Relationship Specialty Start Date End Date Yan Muro MD [address] [place] [address] [place] [address] PCP - General Internal Medicine 06/12/23 documented as of this encounter Additional Source Comments The information contained in this document represents components of the legal health record. It is not the complete legal health record.[facility]
--- OUTSIDE RECORDS SUMMARY | 2025-04-13 17:40 | XMS_ITS | Clinical Summary ---
Author Organization [facility] Address [facility] [address] [address] Phone Care Team Providers Care Cellophane Bag Machine Operator Name Role Phone aYn Muro MD Primary Care Provider Allergies Active [...] Care Team Description 04/12/2025 Telephone [facility] [address] [place] [address] Makayla Mckee MD Labs Question from Last [...] Description 08/03/2025 11:40 AM EDT Office Visit [facility]ology [facility] [address] [place] [address] Makayla Mckee MD [address] [place] [phone] [email or web address] Health Maintenance Due Date Last Done Comments [...] this topic Medical Devices Implanted Type Area Detacher Device Identifier Shelf Expiration Date Model / Serial / Lot Tutoplast Procssd-Pericar d 1.0cm X 1.0cm - [id number] Implanted:Qty: 1 on 09/14/2019 by Jose Healy MD at [facility] Graft Right: [employer] 09/14/2019 / / [id number] Tutoplast Procssd-Pericar d 1.0cm X 1.0cm - [id number] Implanted:Qty: 1 on 01/08/2016 by Jose Healy MD at [facility] Left: [employer] 03/26/2020 / / [id number] Procedures Procedure Name Priority Date/Time Associated Diagnosis Comments TSH WITH REFLEX Routine 07/29/2024 12:32 PM EDT Postablative hypothyroidism from Last 3 Months or Most Recently Relevant to Health Maintenance Results * TSH with reflex (07/29/2024 12:32 PM EDT) TSH 2.04 0.27 - 4.20 uIU/mL [facility] Blood 07/29/2024 12:3 2 PM EDT 07/29/2024 12:37 PM EDT us Maakyla Mckee MD LAB BLOOD BKR ORDERABL ES Final Result [address] [address] from Last 3 Months or Most Recently Relevant to Health Maintenance Insurance [place] MEDEX SUPPLEMENT MEDICARE PART A & B [employer] SUPPLEMENT MEDICARE PART A & B [employer] SUPPLEMENT MEDICARE PART A & B MEDICARE PART A & B [employer] SUPPLEMENT MEDICARE PART A & B [facility] MEDEX SUPPLEMENT MEDICARE PART A & B Advance Directives For more information, please contact: [phone] (9AM - 5PM [facility], Thursday-Thursday) Documents on File Type Date Recorded Patient Assistant Curator Expl anation Healthcare Proxy 10/10/2015 2:15 PM Care Teams Cellophane Bag Machine Operator Relationship Specialty Start Date End Date Yan Muro MD [address] [place] [address] [place] [address] PCP - General Internal Medicine 06/12/23 Additional Source Comments The information contained in this document represents components of the legal health record. It is not the complete legal health record.[facility]
--- OUTSIDE RECORDS SUMMARY | 2025-04-13 17:41 | XMS_ITS | Patient Health Record ---
Author Organization [facility] Address [address] [place] [address] Care Team Providers Care Mechanical Engineering [employer] Name Role Phone Jina (RETIRED) Yan MANCILLA Primary Care Provide r Solo Corey Unavailable [phone] Allergies No Known Allergies Results Component Value Reference Range Notes Pathology (Not yet reviewed by provider) Interpretation: Performing Lab:[facility], [address] [place] [id number] Notes/Report: Reason For Referral No Information Medications [...] Status Risk Notes Problem Irritable bowel syndrome (82943239) Irritable bowel syndrome (K58.9) Active confirmed Problem Screening for malignant neoplasm of colon (857122299) Encounter for screening for malignant neoplasm of colon (Z12.11) Active confirmed Problem Flatulence, eructation and gas pain (098072121) Bloating (R14.0) Active confirmed Problem Constipation (19816949) Constipation (K59.00) Active confirmed Problem Kearney's esophagus (914312812) Kearney's esophagus without dysplasia (K22.70) Active confirmed Problem Polyp of colon (07425555) Polyp of colon (K63.5) Active confirmed Problem Hiatal hernia (06748989) Hiatal hernia (K44.9) Active confirmed Problem History of adenomatous polyp of colon (049727432) Hx of adenomatous colonic polyps (Z86.010) Active confirmed Problem Gastroesophageal reflux disease (653252579) Gastroesophageal reflux disease, unspecified whether esophagitis present (K21.9) Active confirmed Vital Signs Temperature 97.5 degrees Fahrenheit 04/26/2024 Blood pressure diastolic 00 mm Hg 04/26/2024 Height 64.5 in 04/26/2024 Blood pressure systolic 000 mm Hg 04/26/2024 Weight 142 lbs 04/26/2024 BMI 24.00 kg/m2 04/26/2024 Encounters Encounter Location Date Provider Diagnosis [facility] [address] [place] [phone] 01/09/[address] [facility] [address] [facility] [address] [place] [phone] 04/26/2024 Solo Adams Irritable bowel syndrome K58.9 ; Hx of adenomatous colonic polyps Z86.010 and Encounter for screening for malignant neoplasm of colon Z12.11 [facility] [address] [phone] 08/01/[address] [facility] [address] [place] [address] [address] [place] [phone] 10/25/[address] [facility] [address] [place] [phone] 01/04/2025 Solo Adams Assessments Encounter Date Diagnosis [...] End Date MEDICARE OF [place] [address] [place] [address] [id number] CHUY MILLER Self - patient is the insured MED[employer] ATTN CLAIMS [address] [place] [address] [id number] CHUY MILLER Self - patient is the [...] Kearney's mucosa Graves' disease SVT-on metoprolol Denies [place],DM,CVA,Lung disease,renal dise ase Normal duodenal biopsies in [...]
== END 2025-04-13 14:25 | disposition home or self-care (01) ==
LOC: HO.HVS 13:34
PROVIDERS: PCP Internal Medicine; Visit Provider Surgery Vascular Surgery
DX: I83.12 Varicose veins of left lower extremity with inflammation (principal); I83.11 Varicose veins of right lower extremity with inflammation
CPT/HCPCS: 99214

== ENCOUNTER → 2025-04-13 14:40 | Outpatient (BNV) | payer MEDICARE, SELFPAY | PROVIDERS: Absent Provider Internal Medicine Rheumatology; PCP Internal Medicine; Visit Provider Radiology Diagnostic Radiology | DX: M54.12 Radiculopathy, cervical region (principal); M50.322 Other cervical disc degeneration at C5-C6 level | CPT/HCPCS: 72040 ==

== ENCOUNTER 2025-04-17 07:46 | Outpatient (REF) | payer MEDICARE, SELFPAY ==
--- OUTSIDE RECORDS SUMMARY | 2024-08-03 04:30 | XMS_ITS ---
Author Organization [facility] Address [address] [place] [address] Care Team Providers Care Satellite Tv Installer Name Role Phone Jina (RETIRED) Yan MANCILLA Primary Care Provide Solo Gómez [phone] REASON FOR VISIT screening,hx polyps Encounters Encounter Location Date Provider Diagnosis [facility] Outpatient [address] [place], [place] [phone] 08/03/2024 Solo Adams Plan Of Treatment No Information Progress Notes * PONCHO MILLERADOB: 2 (74 yo F)Acc No.[id number]:08/03/2024 COLON WITH MAC Patient: CHUY PENALOZA Provider: Vj Adams MD :1950 A ge:73 Y S ex:Female Date:08/03/2024 Address:[address] [place], [place] Pcp:Yan Muro (RETIRED )MD Subjective: * Chief Complaints: * S creening,hx polyps * The named appointment provid er may or may not be the originator of this progress note, and it is not deemed complete until electronically signed by the appointment provider. Sign off status: Pending * Provider: Vj Adams MD Date: 0 08/03/2024 Generated for Mario Alberto morris/Danielito/Osmarsmitting on: 1 06/18/2024 07:50 AM EST
--- OUTSIDE RECORDS SUMMARY | 2024-10-31 04:20 | XMS_ITS ---
Author Organization [facility] Address [address] [place] [address] Care Team Providers Care Senior Construction Project Manager Name Role Phone Jina (RETIRED) Yan MANCILLA Primary Care Provide Solo Gómez [phone] REASON FOR VISIT screening,hx polyps Encounters Encounter Location Date Provider Diagnosis [facility] [place] [address] [place], [place] [phone] 10/31/2024 Solo Adams Plan Of Treatment No Information Progress Notes * PONCHO MILLERADOB: 2 (74 yo F)Acc No.[id number]:10/31/2024 COLON WITH MAC Patient: CHUY PENALOZA Provider: Vj Adams MD :1950 A ge:73 Y S ex:Female Date:10/31/2024 Address:[address] [place], [place] Pcp:Yan Muro (RETIRED )MD Subjective: * Chief Complaints: * S creening,hx polyps * The named appointment provid er may or may not be the originator of this progress note, and it is not deemed complete until electronically signed by the appointment provider. Sign off status: Pending * Provider: Vj Adams MD Date: 0 10/31/2024 Generated for Mario Alberto morris/Danielito/Osmarsmitting on: 06/18/2024 07:49 AM EST
--- OUTSIDE RECORDS SUMMARY | 2025-01-09 08:10 | XMS_ITS ---
Author Organization [facility] Address [address] [place] [address] Care Team Providers Care Housing Management Representative Name Role Phone Jina (RETIRED) Yan MANCILLA Primary Care Provide Solo Gómez Unavailable [phone] REASON FOR VISIT screening colonoscopy Encounters Encounter Location Date Provider Diagnosis [facility] Outpatient [address] [place] [phone] 01/09/2025 Solo Adams Plan Of Treatment No Information Progress Notes * PONCHO MILLERADOB: 2 (74 yo F)Acc No.[id number]:01/09/2025 COLON WITH MAC Patient: CHUY PENALOZA Provider: Vj Adams MD :1950 A ge:74 Y S ex:Female Date:01/09/2025 Address:[address] [place], [place] Pcp:Yan Muro (RETIRED )MD Subjective: * Chief [...] 01/09/2025 Generated for Mario Alberto morris/Danielito/eTransmitting on: 1 06/18/2024 07:49 AM EST
--- OUTSIDE RECORDS SUMMARY | 2025-04-17 07:50 | XMS_ITS | Encounter Summary ---
Author Organization [facility] Address [facility] [employer] [address] [address] Phone Care Team Providers Care Asbestos Hazard Abatement Worker Name Role Phone Yan Muro MD Primary Care Provider Reason for Visit * Reason Onset Date Comments Labs Question 04/12/2025 Encounter Details Date Type Department Care Team (Late st Contact Info) Description 04/12/2025 Telephone [facility] Endocrinology Clinic [address] [place] [address] Makayla Mckee MD [address] [place] [phone] [email or web address] Labs Question Social History Tobacco [...] message for pt to call back * Emam Chi - 04/12/2025 10:47 AM EST Patient has not been feeling well, asking if they could have labs ordered? Please call [phone] 2:00pm today. documented in this encounter Plan of Treatment Upcoming Encounters Date Type Department Care Team (Late st Contact Info) Description 08/03/2025 11:40 AM EDT Office Visit [facility] Endocrinology Clinic [address] [place] [address] Makayla Mckee MD [address] [place] [phone] [email or web address] documented as of this encounter Visit Diagnoses Not on filedocumented in this encounter Care Teams Asbestos Hazard Abatement Worker Relationship Specialty Start Date End Date Yan Muro MD [address] [place] [address] [place] [address] PCP - General Internal Medicine 06/12/23 documented as of this encounter Additional Source Comments The information contained in this document represents components of the legal health record. It is not the complete legal health record.[facility]
--- OUTSIDE RECORDS SUMMARY | 2025-04-17 07:50 | XMS_ITS | Clinical Summary ---
Author Organization [facility] Address [facility] [address] [address] Phone Care Team Providers Care Knitted Goods Shaper Name Role Phone Yan Muro MD Primary [...] Care Team Description 04/12/2025 Telephone [facility]ology Clinic [address] [place] [address] Makayla Mckee MD Labs Question from Last [...] Description 08/03/2025 11:40 AM EDT Office Visit [facility]ology Clinic [address] [place] [address] Makayla Mckee MD [address] [place] [phone] [email or web address] Health Maintenance Due Date Last Done Comments [...] this topic Medical Devices Implanted Type Area Turbo Operator Device Identifier Shelf Expiration Date Model / Serial / Lot Tutoplast Procssd-Pericar d 1.0cm X 1.0cm - [id number] Implanted:Qty: 1 on 09/14/2019 by Jose Healy MD at [facility] Graft Right: [employer] 09/14/2019 / / [id number] Tutoplast Procssd-Pericar d 1.0cm X 1.0cm - [id number] Implanted:Qty: 1 on 01/08/2016 by Jose Healy MD at [facility] Left: [employer] 03/26/2020 / / [id number] Procedures Procedure Name Priority Date/Time Associated Diagnosis Comments TSH WITH REFLEX Routine 07/29/2024 12:32 PM EDT Postablative hypothyroidism from Last 3 Months or Most Recently Relevant to Health Maintenance Results * TSH with reflex (07/29/2024 12:32 PM EDT) TSH 2.04 0.27 - 4.20 uIU/mL [facility] Blood 07/29/2024 12:3 2 PM EDT 07/29/2024 12:37 PM EDT us Makayla Mckee MD LAB BLOOD BKR ORDERABL ES Final Result [address] [address] from Last 3 Months or Most Recently Relevant to Health Maintenance Insurance [place] Over 40 Females MEDEX SUPPLEMENT MEDICARE PART A & B [employer] MEDEX SUPPLEMENT MEDICARE PART A & B [employer] MEDEX SUPPLEMENT MEDICARE PART A & B MEDICARE PART A & B [employer] MEDEX SUPPLEMENT MEDICARE PART A & B [facility] MEDEX SUPPLEMENT MEDICARE PART A & B Advance Directives For more information, please contact: [phone] (9AM - 5PM [facility], Thursday-Thursday) Documents on File Type Date Recorded Patient Editorial Project Manager Expl anation Healthcare Proxy 10/10/2015 2:15 PM Care Teams Knitted Goods Shaper Relationship Specialty Start Date End Date Yan Muro MD [address] [place] [address] [place] [address] PCP - General Internal Medicine 06/12/23 Additional Source Comments The information contained in this document represents components of the legal health record. It is not the complete legal health record.[facility]"
--- OUTSIDE RECORDS SUMMARY | 2025-04-17 07:50 | XMS_ITS | Patient Health Record ---
Author Organization [facility] Address [address] [place] [address] Care Team Providers Care National Insurance Officer Name Role Phone Jina (RETIRED) Yan MANCILLA Primary Care Provide r Solo Corey Unavailable [phone] Allergies No Known Allergies Results Component Value Reference Range Notes Pathology (Not yet reviewed by provider) Interpretation: Performing Lab:[facility], [address] [place] [phone] Notes/Report: Reason For Referral No Information Medications [...] Status Risk Notes Problem Irritable bowel syndrome (03323646) Irritable bowel syndrome (K58.9) Active confirmed Problem Screening for malignant neoplasm of colon (791419775) Encounter for screening for malignant neoplasm of colon (Z12.11) Active confirmed Problem Flatulence, eructation and gas pain (472969579) Bloating (R14.0) Active confirmed Problem Constipation (01303241) Constipation (K59.00) Active confirmed Problem Kearney's esophagus (715180391) Kearney's esophagus without dysplasia (K22.70) Active confirmed Problem Polyp of colon (77027421) Polyp of colon (K63.5) Active confirmed Problem Hiatal hernia (52882834) Hiatal hernia (K44.9) Active confirmed Problem History of adenomatous polyp of colon (098327396) Hx of adenomatous colonic polyps (Z86.010) Active confirmed Problem Gastroesophageal reflux disease (227897188) Gastroesophageal reflux disease, unspecified whether esophagitis present (K21.9) Active confirmed Vital Signs Temperature 97.5 degrees Fahrenheit 04/26/2024 Blood pressure diastolic 00 mm Hg 04/26/2024 Height 64.5 in 04/26/2024 Blood pressure systolic 000 mm Hg 04/26/2024 Weight 142 lbs 04/26/2024 BMI 24.00 kg/m2 04/26/2024 Encounters Encounter Location Date Provider Diagnosis [facility] [address] [place] [id number] 01/09/2025 Solo Adams [facility] [address] [place] [phone] 04/26/2024 Solo Adams Irritable bowel syndrome K58.9 ; Hx of adenomatous colonic polyps Z86.010 and Encounter for screening for malignant neoplasm of colon Z12.11 [facility] [address] [address] 08/01/2024 Solo Adams [facility] [address] [place] [address] [address] [place] [phone] 10/25/2024 Solo Adams [facility] [address] [place] [phone] 01/04/2025 Solo Adams Assessments Encounter Date Diagnosis [...] End Date MEDICARE OF [place] [address] [place] [address] [id number] CHUY MILLER Self - patient is the insured MED[employer] ATTN CLAIMS [address] [place] [address] [phone] [id number] CHUY MILLER Self - patient is the [...] Kearney's mucosa Graves' disease SVT-on metoprolol Denies [place],DM,CVA,Lung disease,renal dise ase Normal duodenal biopsies in [...]
[2025-04-17 11:12] LABS: MANUAL DIFF FLAG NO
[2025-04-17 11:22] LABS: Hematocrit 45.4 % (37.0-47.0); Hemoglobin 14.8 g/dl (12.0-16.0); Imm Gran Abs Auto 0.06 X10*3/uL (0.00-0.03); Imm Gran Pct Auto 0.7 % (0.0-0.4); Lymphocytes Absolute Auto 2.2 X10*3/uL (1.2-4.9); Mean Corpuscular HGB Conc 32.6 g/dl (31.0-35.0); Mean Corpuscular Hemoglobin 30.1 pg (27.0-33.0); Mean Corpuscular Volume 92.5 fL (80.0-98.0); NRBC Abs Auto 0.000 X10*3/uL (0.0-0.012); NRBC Pct Auto 0.0 /100WBC (0.0-0.2); Platelet Count 406 X10*3/uL (160-400); Red Blood Count 4.91 X10*6/uL (4.20-5.50); White Blood Count 8.9 X10*3/uL (4.8-10.8)
[2025-04-17 11:44] LABS: Alanine Aminotransferase 36 U/L (0-31); Albumin Level 4.4 g/dL (3.5-5.0); Alkaline Phosphatase 59 U/L (39-117); Anion Gap 10 (12-20); Aspartate Amino Transferase 40 U/L (5-31); Blood Urea Nitrogen 20 mg/dL (9-16); Calcium 9.6 mg/dL (8.4-10.2); Carbon Dioxide 27 mmol/L (22-29); Chloride 109 mmol/L (96-108); Cholesterol 250 mg/dL (<200); Estimated Glomerular Filt Rate > 60; HDL Cholesterol 51 mg/dL (>40); Potassium 4.3 mmol/L (3.3-5.1); Sodium 142 mmol/L (135-145); Total Protein 6.8 g/dL (6.5-8.0); Triglycerides 138 mg/dL (<150)
== END 2025-04-17 07:47 | disposition home or self-care (01) ==
LOC: HO.WFDLDS 07:46
PROVIDERS: Visit Provider Internal Medicine
DX: R00.2 Palpitations (principal); R07.9 Chest pain, unspecified; E78.5 Hyperlipidemia, unspecified; M19.90 Unspecified osteoarthritis, unspecified site
CPT/HCPCS: 36415; 80053; 80061; 84443; 85025